=== PATIENT | female | born 1985 | race Caucasian/White ===

== ENCOUNTER → 2016-05-27 | Outpatient (CLI) | payer BC | LOC: RAD 16:19 | PROVIDERS: ATTEND Physician Assistant | DX: M47.896 Other spondylosis, lumbar region (principal); R32 Unspecified urinary incontinence | CPT/HCPCS: 72148 ==

== ENCOUNTER → 2016-09-20 | Outpatient (CLI) | payer BC | LOC: RAD 16:34 | PROVIDERS: ATTEND Physician Assistant | DX: M25.561 Pain in right knee (principal) ==

== ENCOUNTER 2017-11-02 05:24 | Emergency (ER) | payer BC ==
--- NOTE | 2017-11-02 06:03 | RADIOLOGY REPORT (SQ) ---
EXAM DESCRIPTION: XR WRIST 3 OR MORE VIEWS COMPLETED DATE/TME: 11/02/2017 05:34 CLINICAL HISTORY: 32 years, Female, injury/pain COMPARISON: None. None. FINDINGS: 3 views of the left wrist. Acute fracture of the distal left radial metaphysis with approximately 40 degrees dorsal angulation. Minimally displaced ulnar styloid fracture. No other acute fracture identified. Normal osseous mineralization. Soft tissue edema. IMPRESSION: 1. Acute fracture of the distal left radial metaphysis with 40 degrees dorsal angulation. 2. Minimally displaced ulnar styloid fracture. 2011 [employer]- All Rights Reserved
--- NOTE | 2017-11-02 07:12 | ER Document Report ---
ED General - General Chief Complaint: Wrist Injury Stated Complaint: LEFT INJURY Time Seen by Provider: 11/02/17 07:12 Mode of Arrival: Ambulatory Information source: Patient TRAVEL OUTSIDE OF THE [place] IN LAST 30 DAYS: No - HPI Notes: 32-year-old female presents to the ED with complaints of left wrist pain after she fell approximately 2 hours ago while at home. Denies any other area of injury. Denies hitting head or change in level consciousness. Pain is 6 out of 10, sharp and shooting. Pt took pain medication at home. Denies any numbness or tingling to bilateral upper extremities. Has not tried moving extremities. Denies . Denies fevers, chills, chest pain,palpitations, shortness of breath, dyspnea, nausea, vomiting, diarrhea, abdominal pain, hematuria, blurred vision, double vision, loss of vision, speech changes, LH, dizziness, syncope, headaches, wheezing, ST, URI, neck pain, weakness, bowel or bladder dysfunction, saddle anesthesia, numbness or tingling in bilateral upper or lower extremities equally, muscle paralysis, weakness in bilateral upper or lower extremities equally or rash. Denies IV drug use. - Related Data Allergies/Adverse Reactions: No Known Allergies Allergy (Verified 11/02/17 05:33) Past Medical History - General Information source: Patient - Social History Smoking Status: Current Every Day Smoker Frequency of alcohol use: None Drug Abuse: None Family History: Reviewed & Not Pertinent Patient has suicidal ideation: No Patient has homicidal ideation: No Pulmonary Medical History: Reports: Hx Asthma Endocrine Medical History: Reports: Hx Diabetes Mellitus Type 2 Renal/ Medical History: Denies: Hx Peritoneal Dialysis GI Medical History: Reports: Hx Cirrhosis, Hx Gastroesophageal Reflux Disease Past Surgical History: Reports: Hx Cholecystectomy - Immunizations Hx Diphtheria, Pertussis, Tetanus Vaccination: No Review of Systems - Review of Systems Constitutional: No symptoms reported EENT: No symptoms reported Cardiovascular: No symptoms reported Respiratory: No symptoms reported Gastrointestinal: No symptoms reported Genitourinary: No symptoms reported Female Genitourinary: No symptoms reported Musculoskeletal: See HPI Skin: No symptoms reported Hematologic/Lymphatic: No symptoms reported Neurological/Psychological: No symptoms reported Physical Exam - Vital signs Vitals: Temp Pulse Resp BP Pulse Ox 98.1 F 99 16 123/70 100 11/02/17 05:33 11/02/17 05:33 11/02/17 05:33 11/02/17 05:33 11/02/17 05:33 - Notes Notes: PHYSICAL EXAMINATION: GENERAL: Well-appearing, well-nourished and in no acute distress. HEAD: Atraumatic, normocephalic. EYES: Pupils equal round and reactive to light, extraocular movements intact, conjunctiva are normal. ENT: Nares patent, oropharynx clear without exudates. Moist mucous membranes. NECK: Normal range of motion, supple without lymphadenopathy LUNGS: Breath sounds clear to auscultation bilaterally and equal. No wheezes rales or rhonchi. HEART: Regular rate and rhythm without murmurs ABDOMEN: Soft, nontender, nondistended abdomen. No guarding, no rebound. No masses appreciated. Female : deferred Musculoskeletal: Normal range of motion, no pitting or edema. No cyanosis. noted left wrist pain with obvious deformity with flexion, extension, inversion , eversion of wrist. digits in right and left with full aprom. Patient unwilling to loss prevention officer with left wrist but did squeeze my fingers which is equal to the right, 5 out of 5. Snuffbox tenderness positive on left. radial pulses + 2 BUE equally. Negative kanavels sign. No open wounds or drainage from wrist. No vascular compromise. No body crepitus or focal area of TTP. Limited ROM with flexion, extension, ulnar/radial deviation on left . Motor and sensory function of ulnar, radial, medial nerves intact bilaterally and equally. NEUROLOGICAL: Cranial nerves grossly intact. Normal speech, normal gait. Normal sensory, motor exams PSYCH: Normal mood, normal affect. SKIN: Warm, Dry, normal turgor, no rashes or lesions noted. Course - Re-evaluation Re-evalutation: 11/02/17 08:13 32-year-old female presents to the ED for evaluation of left wrist pain status post fall. X-ray of left wrist show she has a acute fracture of the distal left radial meta-epiphysis with 40 of angulation, minimally displaced ulnar styloid fracture. With Dr. Lam Magaña, hand specialist on-call at 0750, regarding radiological findings, stated that he will see patient in office this morning to reduce her fracture. Discussed plan of care with patient, she agreed to have reduction performed at employee development specialist office, patient's 12 herself to the ED, spoke with forest examiner at Dr. Magaña's office will be happy to see her right after she splinted in the ED. patient was agreeable to this after being splinted in the ED. consent by patient given to place left sugar tong splint,. cms intact, sensory motor function intact in bilateral upper extremities prior to splint application fiberglass splint placed without incident. cms intact 20 minutes after splint application. Splint is in good alignment, sling applied. Bilateral upper extremities with motor and sensory function intact 20 minutes after application. Pt stated that splint felt comfortable. pt is being seen by pain management and is already been prescribed oral controlled opioid medications, discussed with the patient that I will be unable to prescribe medication for her, she stated she was aware due to her pain contract. all questions and concerns answered by this provider. After performing a Medical Screening Examination, I estimate there is LOW risk for OPEN FRACTURE, COMPARTMENT SYNDROME, TENDON RUPTURE, ACUTE NEUROVASCULAR INJURY, or RETAINED FOREIGN BODY, thus I consider the discharge disposition reasonable. Also, there is no evidence or peritonitis, sepsis, or toxicity. I have reevaluated this patient multiple times and no significant life threatening changes are noted. The patient and I have discussed the diagnosis and risks, and we agree with discharging home with close follow-up with the understanding that symptoms and presentations can change. We also discussed returning to the Emergency Department immediately if new or worsening symptoms occur. We have discussed the symptoms which are most concerning (e.g., changing or worsening pain, fever, numbness, weakness, cool or painful digits) that necessitate immediate return. - Vital Signs Vital signs: Temp Pulse Resp BP Pulse Ox 97.7 F 72 20 113/74 96 11/02/17 08:44 11/02/17 08:44 11/02/17 08:44 11/02/17 08:44 11/02/17 08:44 Discharge - Discharge Clinical Impression: Fracture of distal end of radius with dorsal angulation Left wrist fracture Qualifiers: Encounter type: initial encounter Fracture type: closed Qualified Code(s): S62.102A - Fracture of unspecified carpal bone, left wrist, initial encounter for closed fracture Ulna styloid fracture, closed Qualifiers: Encounter type: initial encounter Fracture alignment: displaced Laterality: left Qualified Code(s): S52.612A - Displaced fracture of left ulna styloid process, initial encounter for closed fracture Condition: Stable Disposition: HOME, SELF-CARE Instructions: Compartment Syndrome Cautions ([facility]), Fractured Radius and Ulna ( [facility]), Splint Pending Casting ([facility]), Splint Precautions ([facility]), Temporary Splint ( [facility]) Additional Instructions: Continue taking your pain medication as is been prescribed to you by pain management. Please go over to Dr. Lam Magaña's office now for reduction and cast placement , they will see in the office right after you leave the ER today Orthopedic Office [facility] [address] [place] [address] phone: [phone] Forms: Return to Work Referrals: LAM MAGAÑA DO [ACTIVE STAFF] - 11/02/17 8:07 am ROSHAN DENNIS MD [COMMUNITY BASED STAFF] - Follow up as needed
[2017-11-02] MEDS ORDERED: FENTANYL CITRATE INJ/PF 100 MCG/2 ML AMPUL IV ONE (07:46)
[2017-11-02 08:44] VITALS: BP 113/74
== END 2017-11-02 08:44 | disposition home or self-care (01) ==
LOC: ER 05:24
DX: S52.612A Displaced fracture of left ulna styloid process, initial encounter for closed fracture (principal); S52.502A Unspecified fracture of the lower end of left radius, initial encounter for closed fracture; W19.XXXA Unspecified fall, initial encounter; Y92.009 Unspecified place in unspecified non-institutional (private) residence as the place of occurrence of the external cause; E11.9 Type 2 diabetes mellitus without complications; J45.909 Unspecified asthma, uncomplicated; F17.200 Nicotine dependence, unspecified, uncomplicated; Z79.891 Long term (current) use of opiate analgesic
CPT/HCPCS: 99283

== ENCOUNTER 2017-11-08 12:24 | Emergency (ER) | payer BC ==
--- NOTE | 2017-11-08 13:21 | ER Document Report ---
ED Medical Screen (RME) - General Chief Complaint: Arm Pain Stated Complaint: LEFT ARM PAIN Time Seen by Provider: 11/08/17 13:14 Mode of Arrival: Ambulatory Information source: Patient Notes: 32-year-old female presents with Colles' fracture left that was splinted with complaints of bruising of her hand swelling worsened today I have greeted and performed a rapid initial assessment of this patient. A comprehensive ED assessment and evaluation of the patient, analysis of test results and completion of the medical decision making process will be conducted by additional ED providers. PHYSICAL EXAMINATION: GENERAL: Well-appearing, well-nourished and in no acute distress. HEAD: Atraumatic, normocephalic. EYES: Pupils equal round extraocular movements intact, conjunctiva are normal. ENT: Nares patent NECK: Normal range of motion LUNGS: No respiratory distress Musculoskeletal: decreased rom of the left wrist NEUROLOGICAL: Normal speech, normal gait. PSYCH: Normal mood, normal affect. SKIN: echymosis of the left wrist hand TRAVEL OUTSIDE OF THE [place] IN LAST 30 DAYS: No - Related Data Allergies/Adverse Reactions: No Known Allergies Allergy (Verified 11/04/17 10:49) Past Medical History - Social History Chew tobacco use (# tins/day): No Frequency of alcohol use: Occasional Drug Abuse: None - Past Medical History Cardiac Medical History: Reports: Hx Heart Attack - "Mild [place]" cause unknown Denies: Hx Coronary Artery Disease, Hx Hypertension Pulmonary Medical History: Reports: Hx Asthma - Sees Dr. Tabares , Hx Bronchitis , Hx Pneumonia Neurological Medical History: Reports: Hx Seizures - "I have small seizures", no medications at this time . Denies: Hx Cerebrovascular Accident Endocrine Medical History: Reports: Hx Diabetes Mellitus Type 2 Renal/ Medical History: Denies: Hx Peritoneal Dialysis GI Medical History: Reports: Hx Cirrhosis, Hx Gastroesophageal Reflux Disease Musculoskeltal Medical History: Denies Hx Arthritis Past Surgical History: Reports: Hx Cholecystectomy - Immunizations Hx Diphtheria, Pertussis, Tetanus Vaccination: No History of Influenza Vaccine for 02/2017 - 07/2017 Season: Yes Influenza Administration Date for 02/2017 - 07/2017 Season: 01/16/18 Physical Exam - Vital signs Vitals: Temp Pulse Resp BP Pulse Ox 99.0 F 83 16 113/70 100 11/08/17 12:30 11/08/17 12:30 11/08/17 12:30 11/08/17 12:30 11/08/17 12:30 Course - Vital Signs Vital signs: Temp Pulse Resp BP Pulse Ox 99.0 F 83 16 113/70 100 11/08/17 12:30 11/08/17 12:30 11/08/17 12:30 11/08/17 12:30 11/08/17 12:30
--- NOTE | 2017-11-08 14:21 | ER Document Report ---
ED Extremity Problem, Upper - General Chief Complaint: Arm Pain Stated Complaint: LEFT ARM PAIN Time Seen by Provider: 11/08/17 13:14 Mode of Arrival: Ambulatory Notes: The patient is a 32-year-old female, past medical history left Colles' fracture 6 days ago, presents with bruising and swelling of her left hand that worsened today. She is scheduled for surgery in [address] Magaña. The patient's wrist fracture was unable to be reduced in the Ortho office last week. She is continuing to wear her sugar tong splint and taking oxycodone for pain control. She denies increased numbness, tingling, difficulty moving her fingers or any other injuries. TRAVEL OUTSIDE OF THE [place] IN LAST 30 DAYS: No - Related Data Allergies/Adverse Reactions: No Known Allergies Allergy (Verified 11/04/17 10:49) Past Medical History - General Information source: Patient - Social History Smoking Status: Current Every Day Smoker Chew tobacco use (# tins/day): No Frequency of alcohol use: Occasional Drug Abuse: None Family History: Reviewed & Not Pertinent Patient has suicidal ideation: No Patient has homicidal ideation: No - Past Medical History Cardiac Medical History: Reports: Hx Heart Attack - "Mild [place]" cause unknown Denies: Hx Coronary Artery Disease, Hx Hypertension Pulmonary Medical History: Reports: Hx Asthma - Sees Dr. Tabares , Hx Bronchitis , Hx Pneumonia Neurological Medical History: Reports: Hx Seizures - "I have small seizures", no medications at this time . Denies: Hx Cerebrovascular Accident Endocrine Medical History: Reports: Hx Diabetes Mellitus Type 2 Renal/ Medical History: Denies: Hx Peritoneal Dialysis GI Medical History: Reports: Hx Cirrhosis, Hx Gastroesophageal Reflux Disease Musculoskeltal Medical History: Denies Hx Arthritis Past Surgical History: Reports: Hx Cholecystectomy - Immunizations Hx Diphtheria, Pertussis, Tetanus Vaccination: No Review of Systems - Review of Systems Notes: REVIEW OF SYSTEMS: CONSTITUTIONAL: -fevers, -chills EENT: -eye pain, -difficulty swallowing, -nasal congestion CARDIOVASCULAR: -chest pain, -syncope. RESPIRATORY: -cough, -SOB GASTROINTESTINAL: -abdominal pain, -nausea, -vomiting, -diarrhea GENITOURINARY: -dysuria, -hematuria MUSCULOSKELETAL: +left wrist and hand pain, -back pain, -neck pain SKIN: -rash or skin lesions. HEMATOLOGIC: -easy bruising or bleeding. LYMPHATIC: -swollen, enlarged glands. NEUROLOGICAL: -altered mental status or loss of consciousness, -headache, - neurologic symptoms PSYCHIATRIC: -anxiety, -depression. ALL OTHER SYSTEMS REVIEWED AND NEGATIVE. Physical Exam - Vital signs Vitals: Temp Pulse Resp BP Pulse Ox 99.0 F 83 16 113/70 100 11/08/17 12:30 11/08/17 12:30 11/08/17 12:30 11/08/17 12:30 11/08/17 12:30 - Notes Notes: PHYSICAL EXAMINATION: GENERAL: Well-appearing, well-nourished and in no acute distress. HEAD: Atraumatic, normocephalic. EYES: Pupils equal round and reactive to light, extraocular movements intact, sclera anicteric, conjunctiva are normal. ENT: nares patent, oropharynx clear without exudates. Moist mucous membranes. NECK: Normal range of motion, supple without lymphadenopathy ABDOMEN: Soft, nontender, normoactive bowel sounds. No guarding, no rebound. No masses appreciated. EXTREMITIES: Ecchymosis and swelling over dorsal surface of left hand, tenderness over 3rd and 4th metacarpals, brisk capillary refill, tenderness and deformity of distal left wrist. Sensation intact of all left 5th fingers. NEUROLOGICAL: Cranial nerves grossly intact. Normal speech, normal gait. Normal sensory and motor exams. PSYCH: Normal mood, normal affect. Course - Re-evaluation Re-evalutation: Patient with no evidence of compartment syndrome or new acute fractures. She has orthopedic surgery in [address] Magaña to fix her Colles' fracture. Pt's splint was loosened. Instructed her to continue to wear the splint and given strict return precautions. - Vital Signs Vital signs: Temp Pulse Resp BP Pulse Ox 99.0 F 83 16 113/70 100 11/08/17 12:30 11/08/17 12:30 11/08/17 12:30 11/08/17 12:30 11/08/17 12:30 - Diagnostic Test Radiology reviewed: Image reviewed, Reports reviewed Radiology results interpreted by me: Left hand x-ray: No acute fractures Discharge - Discharge Clinical Impression: Traumatic ecchymosis of left hand Qualifiers: Encounter type: initial encounter Qualified Code(s): S60.222A - Contusion of left hand, initial encounter Condition: Stable Disposition: HOME, SELF-CARE Additional Instructions: There are no signs of new fractures on your x-ray today. Keep the loose splint in place and follow-up with Dr. Magaña as scheduled in 2 days for your surgery. Referrals: JUAN A BROWN MD [Primary Care Provider] - Follow up as needed KIM MAGAÑA DO [ACTIVE STAFF] - Follow up in 3-5 days
[2017-11-08] MEDS ORDERED: OXYCODONE HCL IR 5 MG TABLET PO ONE (15:07)
--- NOTE | 2017-11-08 15:43 | RADIOLOGY REPORT (SQ) ---
EXAM DESCRIPTION: HAND LEFT 3 VIEWS COMPLETED DATE/TIME: 11/08/2017 3:23 pm REASON FOR STUDY: left hand swelling and injury COMPARISON: Left wrist radiographs 11/02/2017. NUMBER OF VIEWS: Three views left hand. LIMITATIONS: See below. FINDINGS: Angulated distal radial fracture looks similar to prior. Limited evaluation of the digits due to flexion and positioning difficulties. No gross hand fracture or dislocation evident. OTHER: No other significant finding. IMPRESSION: 1. Grossly unchanged known distal radial fracture. 2. No hand fracture identified, mil dly limited positioning. TECHNICAL DOCUMENTATION: JOB ID: [id number] Reading location - IP/workstation name: [email or web address]
[2017-11-08 16:48] VITALS: BP 120/67
== END 2017-11-08 16:46 | disposition home or self-care (01) ==
LOC: ER 12:24
DX: S52.532D Colles' fracture of left radius, subsequent encounter for closed fracture with routine healing (principal); S60.222D Contusion of left hand, subsequent encounter; M79.602 Pain in left arm; M25.532 Pain in left wrist; M79.89 Other specified soft tissue disorders; X58.XXXD Exposure to other specified factors, subsequent encounter; F17.200 Nicotine dependence, unspecified, uncomplicated; I25.2 Old myocardial infarction; J45.909 Unspecified asthma, uncomplicated; E11.9 Type 2 diabetes mellitus without complications
CPT/HCPCS: 99283

== ENCOUNTER 2017-11-10 10:32 | Day surgery (SDC) | payer BC ==
--- NOTE | 2017-11-04 13:43 | RADIOLOGY REPORT (SQ) ---
EXAM DESCRIPTION: CHEST PA/LATERAL COMPLETED DATE/TIME: 11/04/2017 12:54 pm REASON FOR STUDY: PRE-OP COMPARISON: CT chest 08/05/2012 Chest film 04/01/2012, 08/07/2010 EXAM PARAMETERS: NUMBER OF VIEWS: two views TECHNIQUE: Digital Frontal and Lateral radiographic views of the chest acquired. RADIATION DOSE: NA LIMITATIONS: none FINDINGS: LUNGS AND PLEURA: No opacities, masses or pneumothorax. No pleural effusion. MEDIASTINUM AND HILAR STRUCTURES: No masses or contour abnormalities. HEART AND VASCULAR STRUCTURES: Heart normal size. No evidence for failure. BONES: No acute findings. HARDWARE: Clips right upper quadrant post cholecystectomy. OTHER: No other significant finding. IMPRESSION: NO SIGNIFICANT RADIOGRAPHIC FINDING IN THE CHEST. TECHNICAL DOCUMENTATION: JOB ID: [id number] [employer]- All Rights Reserved Reading location - IP/workstation name: [email or web address]
[2017-11-04 13:47] LABS: HEMATOCRIT 40.1 % (36.0-47.0); HEMOGLOBIN 13.7 g/dL (12.0-15.5); MEAN CORPUSCULAR HEMOGLOBIN 31.4 pg (27.0-33.4); MEAN CORPUSCULAR HGB CONC 34.1 g/dL (32.0-36.0); MEAN CORPUSCULAR VOLUME 92 fl (80-97); PLATELET COUNT 201 10^3/uL (150-450); RED BLOOD COUNT 4.36 10^6/uL (3.72-5.28); RED CELL DISTRIBUTION WIDTH 12.2 % (11.5-14.0); WHITE BLOOD COUNT 5.9 10^3/uL (4.0-10.5)
[2017-11-04 14:15] LABS: ANION GAP 11 (5-19); BLOOD UREA NITROGEN 14 mg/dL (7-20); CALCIUM 9.1 mg/dL (8.4-10.2); CARBON DIOXIDE 23 mmol/L (22-30); CHLORIDE 111 mmol/L (98-107); GLUCOSE 92 mg/dL (75-110); SODIUM 144.5 mmol/L (137-145)
--- NOTE | 2017-11-04 22:25 | EKG REPORT ---
SEVERITY:- NORMAL ECG - SINUS RHYTHM : Confirmed by: Sandeep Sorto 04-Nov-2017 22:25:16
[~2017-11-10 10:32] MED LIST: ACETAMINOPHEN 1,000 MG/100 ML RTUPB IV ONE; BUPIVACAINE HCL 0.5 % INJ/PF 30 ML SDV ONE; CEFAZOLIN 2 GM/D5W RTU 2 GM/50 ML RTUPB IV PRN; CEFAZOLIN SODIUM 2 GM in NORMAL SALINE 100 ML IV PRN; FENTANYL CITRATE INJ/PF 100 MCG/2 ML AMPUL ONE; LACTATED RINGERS 1000 ML IV PRN; LIDOCAINE 0.5% INJ-PF (5 MG/ML) 50 ML SDV SUBCUT PRN; LIDOCAINE 2% INJ-PF (20 MG/ML) 10 ML AMPUL ONE; MIDAZOLAM 2 MG/2 ML INJ ONE; PROPOFOL INJ 200 MG/20 ML VIAL IV ONE
[2017-11-10] MEDS ORDERED: OXYCODONE-ACETAMINOPHEN 5-325 MG TABLET PO PRN ×3 (11:57→13:33)
[2017-11-10] MEDS ORDERED: PROMETHAZINE HCL INJ 25 MG/1 ML VIAL IV PRN ×2 (11:57)
[2017-11-10] MEDS ORDERED: FENTANYL CITRATE INJ/PF 100 MCG/2 ML AMPUL IV PRN ×3 (11:57)
[2017-11-10] MEDS ORDERED: ONDANSETRON HCL INJ/PF 4 MG/2 ML SDV IV PRN ×2 (11:57→13:33)
[2017-11-10] MEDS ORDERED: DIPHENHYDRAMINE HCL 50 MG/ML VIAL IV PRN (11:57)
[2017-11-10] MEDS ORDERED: MEPERIDINE HCL/PF INJ 25 MG/1 ML DISP.SYRIN IV PRN (11:57)
[2017-11-10] MEDS ORDERED: MORPHINE SULFATE 10 MG/ML INJ IV PRN (11:57)
[2017-11-10] MEDS: FENTANYL CITRATE INJ/PF 100 MCG/2 ML AMPUL ONE ×2 (13:30→13:35)
[2017-11-10] MEDS ORDERED: HYDROMORPHONE HCL INJ/PF 2 MG/ML AMPULE IV PRN (13:33)
--- NOTE | 2017-11-10 13:34 | Discharge Summary ---
Discharge Summary (SDC) - Discharge Final Diagnosis: Left distal radius fracture Date of Surgery: 11/10/17 Discharge Date: 11/10/17 Condition: Good Treatment or Instructions: Schedule Follow Up w/ Dr. Lam Whitt @ [facility] for Surgery to be seen in 10-14 days or as scheduled [place]: [place]: [place]: Ice and elevate Keep splint clean/dry/intact. If your fingers become numb please unwrap the [place] wrap but leave the splint in place, if the sensation does not return within 30 minutes please return to the emergency department. May begin finger range of motion attempting to make full fist. Please use ibuprofen (Motrin or Advil) 600-800 mg every 8 hours as needed for pain or fever DO NOT TAKE w/ TORADOL may use once TORADOL complete. You may also use acetaminophen (Tylenol) 1000 mg every 4-6 hours as needed for pain or fever. Please be aware that many medications contain acetaminophen, do not exceed a total of 1000 mg of acetaminophen every 6 hours. If ibuprofen and acetaminophen are not sufficient for your pain you may take the Percocet/[place]. Please be aware that the Percocet/[place] does contain Tylenol. Stool softener of choice when on pain medication. Vitamin C 500 mg 1 daily for 51 days for treatment of nerve symptoms Prescriptions: Ketorolac Tromethamine [Toradol 10 mg Tablet] 10 mg PO Q8HP PRN #10 tablet PRN Reason: Oxycodone HCl 5 mg PO Q6 PRN #30 tablet PRN Reason: Referrals: JUAN A BROWN MD [Primary Care Provider] - Discharge Diet: As Tolerated Respiratory Treatments at Home: Deep Breathing/Coughing Discharge Activity: No Lifting Over 10 Pounds, No Lifting/Push/Pulling Report the Following to Your Physician Immediately: Fever over 101 Degrees, Unusual Bleeding, Redness, Swelling, Warmth, Increased Soreness
--- NOTE | 2017-11-10 13:35 | Operative Report ---
Operative Report DATE OF SURGERY: 11/10/17 PREOPERATIVE DIAGNOSIS: Left extra-articular distal radius fracture POSTOPERATIVE DIAGNOSIS: Same OPERATION: ORIF left extra-articular distal radius fracture SURGEON: KIM MAGAÑA ANESTHESIA: GA COMPLICATIONS: None ESTIMATED BLOOD LOSS: Minimal PROCEDURE: Indication for above procedure: 32-year-old female who sustained a fall onto her outstretched left wrist. Patient was seen at the emergency room confirming extra-articular distal radius fracture and patient was placed in a splint. She followed up at our office at which point we discussed treatment options including operative versus nonoperative intervention given the dorsal displacement, comminution and angulation decision was made to proceed with operative intervention which included closed versus open reduction internal fixation. Risks and benefits of both closed treatment open treatment were explained to the patient she verbalized understanding consented for the procedure. Procedure In Detail: Patient was seen and evaluated in the preoperative holding area. The LEFT upper extremity was initialized and marked. Patient received 2g of Ancef IV for bacterial prophylaxis. Patient was taken back to the operative room where transferred to the operative table and placed under general anesthesia. Once they were adequately anesthetized and a nonsterile tourniquet was placed on his upper extremity. A surgical team debriefing was performed ensuring all instrumentation was available, the surgical procedure was discussed with possible concerns reviewed. A timeout was done identifying correct patient, procedure and extremity everyone in attendance agree with this and verbalized no concerns. Closed reduction was attempted without advent of alignment with persistent dorsal displacement at that point decision was made to proceed with operative treatment. The upper extremity was prepped with chlorhexidine and alcohol and draped in a sterile fashion. The extremity was exsanguinated the tourniquet was inflated to 250 mmHg. A longitudinal skin incision was made via a volar approach of Murray along the FCR tendon sheath. The FCR tendon sheath was opened and the FCR retracted ulnarly, the palmar cutaneous branch of the median nerve was identified and protected throughout the entirety of the case. The radial artery was identified and retracted radially. Blunt dissection was performed to the FPL which was carefully sweeped ulnarly. This brought me to the pronator quadratus which was elevated off of the distal radius via sharp dissection with a 15 blade to allow later repair. The fracture was then identified and a reduction maneuver was performed utilizing a [place] elevator. Acceptable reduction was then obtained and a Acumed 3 hole volar distal radius plate was placed into position and fixated with a K wire distally x2. AP and lateral radiographs were then obtained demonstrating appropriate placement of the plate and acceptable reduction of the fracture. Using a reduction tenaculum I was able to bring the plate down to bone distally. After drilling distally a cortical screw was used bringing the plate further down to bone, avoiding any liftoff of the plate from the volar cortex that could cause flexor tendon irritation post- operativley. Drilling the near cortex and to but not thru the far cortex a locking screw was then placed in the remaining holes. The previous cortex screw was removed and replaced with a locking screw. Two additional screws were placed into the styloid giving further stability to the radial styloid piece. AP and lateral radius were then done confirming appropriate placement of plate with no evidence of penetration intra-articular or within the DRUJ. I then turned my attention to the proximal screws. I drilled bicortically bringing the plate down to bone with a cortex screw. The remaining 2 holes proximally were drilled bicortically placing the appropriate size cortex in the proximal most hole and a locking screw in the distal shaft hole. AP and lateral radiographs were done confirming appropriate placement of the plate and reduction of the fracture there was advent of radial height, radial inclination and volar tilt. No evidence of dorsal screw prominence or intra- articular penetration of the DRUJ or radiocarpal joint. The wound was copiously irrigated with normal saline. There was no evidence of DRUJ instability on examination, Negative Hamlin's test, No crepitus with range of motion at the radiocarpal joint or DRUJ. I then closed the pronator quadratus with interrupted 3-0 Monocryl suture. Subcutaneous tissues were closed with interrupted 4-0 Monocryl suture. The skin was closed with a running subcuticular 4-0 Monocryl suture which was reinforced with Dermabond and Steri-Strips. 20 mL of 0.5% Marcaine were injected for postoperative pain control. The tourniquet was then deflated. Was dressed with sterile 4 x 4's and patient was placed in a well-padded volar splint with bias wrap. Sponge counts, instrument counts and needle counts were correct. There was no intraoperative complications patient tolerated procedure well stable to PACU. Postoperative plan: Patient will be switched to a removal brace at her first postoperative followup visit and begin range of motion. Patient is encouraged to start vitamin C 500 mg daily for 51 days. Will obtain radiographs at followup of the wrist.
--- NOTE | 2017-11-10 16:00 | RADIOLOGY REPORT (SQ) ---
EXAM DESCRIPTION: WRIST LEFT 2 VIEWS; NO CHG FLUORO COMPLETED DATE/TIME: 11/10/2017 3:46 pm REASON FOR STUDY: ORIF LEFT WRIST S52.532A COLLES' FRACTURE OF LEFT RADIUS, INIT FOR CLOS FX COMPARISON: Left wrist three views 11/02/2017 FLUOROSCOPY TIME: 1 minutes 5 seconds 7 images saved to PACS. TECHNIQUE: Intra-operative images acquired during surgical procedure to evaluate progress. NUMBER OF IMAGES: 7 LIMITATIONS: None. FINDINGS: 7 C-arm images are submitted post ORIF left distal radius fracture with a palmar fixation plate and multiple anchoring screws. Ulnar styloid avulsion. Fractures are in good alignment. Plea se see operative report for further details IMPRESSION: Intra procedural imaging and fluoro as above COMMENT: Quality ID [id number]: Final reports for procedures using fluoroscopy that document radiation exp osure indices, or exposure time and number of fluorographic images (if radiation exposure indices are not available) Please consult full operative report of the attending physician for description of the procedure. TECHNICAL DOCUMENTATION: JOB ID: [id number] [employer]- All Rights Reserved Reading location - IP/workstation name: [email or web address]
--- NOTE | 2017-11-10 16:00 | RADIOLOGY REPORT (SQ) ---
EXAM DESCRIPTION: WRIST LEFT 2 VIEWS; NO CHG FLUORO COMPLETED DATE/TIME: 11/10/2017 3:46 pm REASON FOR STUDY: ORIF LEFT WRIST S52.532A COLLES' FRACTURE OF LEFT RADIUS, INIT FOR CLOS FX COMPARISON: Left wrist three views 11/02/2017 FLUOROSCOPY TIME: 1 minutes 5 seconds 7 images saved to PACS. TECHNIQUE: Intra-operative images acquired during surgical procedure to evaluate progress. NUMBER OF IMAGES: 7 LIMITATIONS: None. FINDINGS: 7 C-arm images are submitted post ORIF left distal radius fracture with a palmar fixation plate and multiple anchoring screws. Ulnar styloid avulsion. Fractures are in good alignment. Plea se see operative report for further details IMPRESSION: Intra procedural imaging and fluoro as above COMMENT: Quality ID [id number]: Final reports for procedures using fluoroscopy that document radiation exp osure indices, or exposure time and number of fluorographic images (if radiation exposure indices are not available) Please consult full operative report of the attending physician for description of the procedure. TECHNICAL DOCUMENTATION: JOB ID: [id number] [employer]- All Rights Reserved Reading location - IP/workstation name: [email or web address]
[2017-11-10 17:36] VITALS: BP 124/78
[2017-11-10] MEDS ORDERED: KETOROLAC TROMETHAMINE 60 MG/2 ML SDV ONE (19:40)
[2017-11-10] MEDS ORDERED: ONDANSETRON HCL INJ/PF 4 MG/2 ML SDV ONE (19:40)
[2017-11-10] MEDS ORDERED: DEXAMETHASONE SOD PHOSPHATE INJ 4 MG/1 ML VIAL ONE (19:40)
== END 2017-11-10 17:00 | disposition home or self-care (01) ==
LOC: OROUT 10:32
PROVIDERS: ATTEND Orthopaedic Surgery
DX: S52.552A Other extraarticular fracture of lower end of left radius, initial encounter for closed fracture (principal); W19.XXXA Unspecified fall, initial encounter; K74.60 Unspecified cirrhosis of liver; J45.909 Unspecified asthma, uncomplicated; E11.9 Type 2 diabetes mellitus without complications; F17.210 Nicotine dependence, cigarettes, uncomplicated; M25.532 Pain in left wrist; Z79.51 Long term (current) use of inhaled steroids; Z79.899 Other long term (current) drug therapy; Z01.818 Encounter for other preprocedural examination; G47.419 Narcolepsy without cataplexy; G40.909 Epilepsy, unspecified, not intractable, without status epilepticus; G43.909 Migraine, unspecified, not intractable, without status migrainosus; Z85.828 Personal history of other malignant neoplasm of skin
CPT/HCPCS: 93005; 36415; 82962; 85027; 81025; 80048; 71046; 73100; 93010; C1713 ×2; J2250; J3490 ×2; J1100; J1885; J3010; J1170; J2405; J2704; J0690; J0131; 01830

== ENCOUNTER → 2018-07-14 | Outpatient (CLI) | payer BC ==
[2018-07-14 17:14] LABS: ABSOLUTE BASOPHILS # (AUTO) 0.1 10^3/uL (0.0-0.2); ABSOLUTE EOSINOPHILS # (AUTO) 0.1 10^3/uL (0.0-0.6); ABSOLUTE MONOCYTES (AUTO) 0.5 10^3/uL (0.1-1.4); ABSOLUTE NEUT (AUTO) 4.1 10^3/uL (1.7-8.2); BASOPHILS % (AUTO) 0.7 % (0-2); EOSINOPHILS % (AUTO) 1.7 % (0-6); HEMATOCRIT 40.6 % (36.0-47.0); HEMOGLOBIN 13.9 g/dL (12.0-15.5); LYMPHOCYTES % (AUTO) 38.9 % (13-45); MEAN CORPUSCULAR HEMOGLOBIN 30.8 pg (27.0-33.4); MEAN CORPUSCULAR HGB CONC 34.3 g/dL (32.0-36.0); MEAN CORPUSCULAR VOLUME 90 fl (80-97); PLATELET COUNT 251 10^3/uL (150-450); RED BLOOD COUNT 4.54 10^6/uL (3.72-5.28); SEGMENTED NEUTROPHILS % (AUTO) 52.7 % (42-78); TOTAL CELLS COUNTED % (AUTO) 100 %; WHITE BLOOD COUNT 7.7 10^3/uL (4.0-10.5)
[2018-07-14 18:06] LABS: ERYTHROCYTE SEDIMENTATION RATE 23 mm/hr (0-20)
== END ==
LOC: OD 15:28
PROVIDERS: ATTEND Pain Medicine Interventional Pain Medicine
DX: R50.9 Fever, unspecified (principal)
CPT/HCPCS: 36415; 85025; 85652; 86140

== ENCOUNTER 2018-10-08 11:56 | Emergency (ER) | payer BC ==
--- NOTE | 2018-10-08 13:36 | ER Document Report ---
ED Medical Screen (RME) - General Chief Complaint: Leg Swelling Stated Complaint: LEG SWELLING Time Seen by Provider: 10/08/18 13:29 Primary Care Provider: TATUM LOYA MD [Primary Care Provider] - Follow up as needed TRAVEL OUTSIDE OF THE [place] IN LAST 30 DAYS: No - HPI Notes: 10/08/18 13:33 Patient is a 33-year-old female with history of type 2 diabetes and asthma who presents complaining of right leg pain from her knee to her foot with associated increase in swelling that began this morning. Patient states that she does have some swelling in her legs bilaterally, but this is more than usual. She is also been having subjective fevers with nasal congestion/discharge and a dry cough over the past several days. Patient states that she does have some shortness of breath, but is considered mild. Denies drug allergies. + smoker. Denies any prolonged immobilization, distance travel, recent surgery/trauma, personal cancer history, hormone use, or previous DVT/PE. Denies RAMOS, neck pain, CP, syncope, palpitations, TURNER, Abd pain, or rash. I have treated and performed a rapid initial assessment of this patient. A comprehensive ED assessment and evaluation of the patient, analysis of test results and completion of medical decision making process will be conducted by additional ED providers. PHYSICAL EXAMINATION: GENERAL: Well-appearing, well-nourished and in no acute distress. LUNGS: Breath sounds clear to auscultation bilaterally and equal. No wheezes rales or rhonchi. HEART: Regular rate and rhythm without murmurs, rubs, gallops. Extremities: 1+ pitting edema RLE and trace LLE. Peripheral pulses 2+. Capillary refill less than 3 seconds. + mild armaan to rt calf. NEUROLOGICAL: Normal speech, normal gait. PSYCH: Normal mood, normal affect. SKIN: Warm, Dry, normal turgor, no rashes or lesions noted. - Related Data Allergies/Adverse Reactions: No Known Allergies Allergy (Verified 11/04/17 10:49) Past Medical History - Past Medical History Cardiac Medical History: Reports: Hx Heart Attack - "Mild MS" cause unknown Denies: Hx Coronary Artery Disease, Hx Hypertension Pulmonary Medical History: Reports: Hx Asthma - Sees Dr. Tabares , Hx Bronchitis, Hx Pneumonia Neurological Medical History: Reports: Hx Seizures - "I have small seizures", no medications at this time . Denies: Hx Cerebrovascular Accident Endocrine Medical History: Reports: Hx Diabetes Mellitus Type 2 Renal/ Medical History: Denies: Hx Peritoneal Dialysis GI Medical History: Reports: Hx Cirrhosis, Hx Gastroesophageal Reflux Disease Musculoskeltal Medical History: Denies Hx Arthritis Past Surgical History: Reports: Hx Cholecystectomy - Immunizations Hx Diphtheria, Pertussis, Tetanus Vaccination: No History of Influenza Vaccine for 02/2017 - 07/2017 Season: Yes Influenza Administration Date for 02/2017 - 07/2017 Season: 01/16/18 Physical Exam - Vital signs Vitals: Temp Pulse Resp BP Pulse Ox 98.5 F 96 18 140/96 H 100 10/08/18 12:20 10/08/18 12:20 10/08/18 12:20 10/08/18 12:20 10/08/18 12:20 Course - Vital Signs Vital signs: Temp Pulse Resp BP Pulse Ox 98.5 F 96 18 140/96 H 100 10/08/18 12:20 10/08/18 12:20 10/08/18 12:20 10/08/18 12:20 10/08/18 12:20 Doctor's Discharge - Discharge Referrals: TATUM LOYA MD [Primary Care Provider] - Follow up as needed
[2018-10-08 14:07] LABS: ABSOLUTE BASOPHILS # (AUTO) 0.1 10^3/uL (0.0-0.2); ABSOLUTE EOSINOPHILS # (AUTO) 0.1 10^3/uL (0.0-0.6); ABSOLUTE LYMPHOCYTES (AUTO) 2.4 10^3/uL (0.5-4.7); ABSOLUTE MONOCYTES (AUTO) 0.5 10^3/uL (0.1-1.4); BASOPHILS % (AUTO) 0.9 % (0-2); EOSINOPHILS % (AUTO) 1.2 % (0-6); HEMATOCRIT 43.7 % (36.0-47.0); HEMOGLOBIN 14.8 g/dL (12.0-15.5); LYMPHOCYTES % (AUTO) 26.3 % (13-45); MEAN CORPUSCULAR HEMOGLOBIN 29.9 pg (27.0-33.4); MEAN CORPUSCULAR HGB CONC 33.9 g/dL (32.0-36.0); MEAN CORPUSCULAR VOLUME 88 fl (80-97); MONOCYTES % (AUTO) 5.8 % (3-13); PLATELET COUNT 271 10^3/uL (150-450); RED BLOOD COUNT 4.96 10^6/uL (3.72-5.28); RED CELL DISTRIBUTION WIDTH 12.3 % (11.5-14.0); SEGMENTED NEUTROPHILS % (AUTO) 65.8 % (42-78); TOTAL CELLS COUNTED % (AUTO) 100 %; WHITE BLOOD COUNT 9.1 10^3/uL (4.0-10.5)
[2018-10-08 14:15] LABS: INTERNATIONAL RATION (INR) 0.92; PROTHROMBIN TIME 12.8 SEC (11.4-15.4)
--- NOTE | 2018-10-08 14:18 | RADIOLOGY REPORT (SQ) ---
EXAM DESCRIPTION: CHEST 2 VIEWS COMPLETED DATE/TIME: 10/08/2018 2:10 pm REASON FOR STUDY: cough, sob COMPARISON: 04/01/2012 EXAM PARAMETERS: NUMBER OF VIEWS: two views TECHNIQUE: Digital Frontal and Lateral radiographic views of the chest acquired. RADIATION DOSE: NA LIMITATIONS: none FINDINGS: LUNGS AND PLEURA: No opacities, masses or pneumothorax. No pleural effusion. MEDIASTINUM AND HILAR STRUCTURES: No masses or contour abnormalities. HEART AND VASCULAR STRUCTURES: Heart normal size. No evidence for failure. BONES: No acute findings. HARDWARE: None in the chest. OTHER: No other significant finding. IMPRESSION: No acute abnormality of the lungs. No focal airspace opacity. TECHNICAL DOCUMENTATION: JOB ID: [id number] [employer]- All Rights Reserved Reading location - IP/workstation name: [email or web address]
[2018-10-08 14:24] LABS: PARTIAL THROMBOPLASTIN TIME 26.9 SEC (23.5-35.8)
[2018-10-08 14:25] LABS: ALANINE AMINOTRANSFERASE 33 U/L (9-52); ALBUMIN 4.6 g/dL (3.5-5.0); ALKALINE PHOSPHATASE 48 U/L (38-126); ANION GAP 11 (5-19); ASPARTATE AMINO TRANSFERASE 29 U/L (14-36); BILIRUBIN,DIRECT 0.3 mg/dL (0.0-0.4); BILIRUBIN,TOTAL 0.5 mg/dL (0.2-1.3); BLOOD UREA NITROGEN 11 mg/dL (7-20); CALCIUM 10.2 mg/dL (8.4-10.2); CARBON DIOXIDE 27 mmol/L (22-30); CHLORIDE 103 mmol/L (98-107); GLUCOSE 98 mg/dL (75-110); SODIUM 140.6 mmol/L (137-145); TOTAL PROTEIN 7.9 g/dL (6.3-8.2)
--- NOTE | 2018-10-08 17:26 | RADIOLOGY REPORT (SQ) ---
EXAM DESCRIPTION: VENOUS UNILATERAL LOWER COMPLETED DATE/TIME: 10/08/2018 5:15 pm REASON FOR STUDY: RLE swelling/pain COMPARISON: None. TECHNIQUE: Dynamic and static alvarez scale and color images acquired of the right leg venous system. S elected spectral images acquired with additional compression and augmentation maneuvers. The contrala teral common femoral vein and saphenofemoral junction were also imaged. Images stored on PACS. LIMITATIONS: None. FINDINGS: COMMON FEMORAL: Normal phasicity, compression and augmentation. No visualized echogenic ma terial on alvarez scale. No defects on color images. FEMORAL: Normal compression and augmentation. No visualized echogenic material on alvarez scale. No defe cts on color images. POPLITEAL: Normal compression, augmentation. No visualized echogenic material on alvarez scale. No defec ts on color images. CALF VESSELS: Normal compression, augmentation. No visualized echogenic material on alvarez scale. No de fects on color images. GSV and SSV: Normal compression, augmentation. No visualized echogenic material on alvarez scale. No def ects on color images. ANY DEEP VENOUS INSUFFICIENCY: Not evaluated. ANY EVIDENCE OF POPLITEAL CYST: No. OTHER: No other significant finding. CONTRALATERAL COMMON FEMORAL VEIN AND SAPHENOFEMORAL JUNCTION: Normal phasicity, compression and augmentation. No visualized echogenic material on alvarez scale. No de fects on color images. IMPRESSION: NO EVIDENCE DVT OR SVT IN THE RIGHT LEG. TECHNICAL DOCUMENTATION: JOB ID: [id number] [employer]- All Rights Reserved Reading location - IP/workstation name: [email or web address]
--- NOTE | 2018-10-08 19:02 | ER Document Report ---
ED Extremity Problem, Lower - General Chief Complaint: Leg Swelling Stated Complaint: LEG SWELLING Time Seen by Provider: 10/08/18 13:29 Primary Care Provider: TATUM LOYA MD [ACTIVE STAFF] - Follow up as needed Mode of Arrival: Ambulatory Information source: Patient Notes: Patient is an otherwise healthy 33-year-old female presented to the emergency department chief complaint of right leg pain from her foot into her knee. She states her symptoms started this morning. She also reports associated swelling. She does state that she occasionally has bilateral leg swelling, states this is worse than before. She also reports mild shortness of breath, denies any chest pain. She does smoke but denies any prolonged immobilization, distant travel, recent surgery or trauma, personal cancer history, hormone use or previous DVT. TRAVEL OUTSIDE OF THE [place] IN LAST 30 DAYS: No - Related Data Allergies/Adverse Reactions: No Known Allergies Allergy (Verified 11/04/17 10:49) Past Medical History - General Information source: Patient - Social History Smoking Status: Current Every Day Smoker Frequency of alcohol use: None Drug Abuse: None Family History: Reviewed & Not Pertinent Patient has suicidal ideation: No Patient has homicidal ideation: No - Past Medical History Cardiac Medical History: Reports: Hx Heart Attack - "Mild [place]" cause unknown Denies: Hx Coronary Artery Disease, Hx Hypertension Pulmonary Medical History: Reports: Hx Asthma - Sees Dr. Tabares , Hx Bronchitis, Hx Pneumonia Neurological Medical History: Reports: Hx Seizures - "I have small seizures", no medications at this time . Denies: Hx Cerebrovascular Accident Endocrine Medical History: Reports: Hx Diabetes Mellitus Type 2 Renal/ Medical History: Denies: Hx Peritoneal Dialysis GI Medical History: Reports: Hx Cirrhosis, Hx Gastroesophageal Reflux Disease Musculoskeletal Medical History: Denies Hx Arthritis Past Surgical History: Reports: Hx Cholecystectomy - Immunizations Hx Diphtheria, Pertussis, Tetanus Vaccination: No Review of Systems - Review of Systems Constitutional: No symptoms reported EENT: No symptoms reported Cardiovascular: Edema - Bilateral lower extremities Respiratory: Short of breath Gastrointestinal: No symptoms reported Genitourinary: No symptoms reported Female Genitourinary: No symptoms reported Musculoskeletal: No symptoms reported Skin: No symptoms reported Hematologic/Lymphatic: No symptoms reported Neurological/Psychological: No symptoms reported Physical Exam - Vital signs Vitals: Temp Pulse Resp BP Pulse Ox 98.5 F 96 18 140/96 H 100 10/08/18 12:20 10/08/18 12:20 10/08/18 12:20 10/08/18 12:20 10/08/18 12:20 - Notes Notes: PHYSICAL EXAMINATION: GENERAL: Well-appearing, well-nourished and in no acute distress. HEAD: Atraumatic, normocephalic. EYES: Pupils equal round and reactive to light, extraocular movements intact, conjunctiva are normal. ENT: Nares patent, oropharynx clear without exudates. Moist mucous membranes. NECK: Normal range of motion, supple without lymphadenopathy LUNGS: Breath sounds clear to auscultation bilaterally and equal. No wheezes rales or rhonchi. HEART: Regular rate and rhythm without murmurs ABDOMEN: Soft, nontender, nondistended abdomen. No guarding, no rebound. No masses appreciated. Female : deferred Musculoskeletal: Normal range of motion, 1+ pitting edema to bilateral lower extremities. No cyanosis. NEUROLOGICAL: Cranial nerves grossly intact. Normal speech, normal gait. Normal sensory, motor exams PSYCH: Normal mood, normal affect. SKIN: Warm, Dry, normal turgor, no rashes or lesions noted. Course - Re-evaluation Re-evalutation: 10/08/18 19:10 CBC, CMP and BNP are unremarkable. EKG shows a sinus rhythm, rate of 89, QTc 434, normal axis with no ST segment elevations or depressions. Patient's physical examination is unremarkable and her lung sounds are clear and equal bilaterally. Patient does have 1+ pitting edema to bilateral lower extremities, slightly increased swelling to the right. A venous Doppler was ordered and performed which is negative for any acute SVT or DVT. Patient will be started on Lasix 20 mg daily for the next 2 weeks. Patient was educated on increasing her potassium intake and the importance of following up with primary care. - Vital Signs Vital signs: Temp Pulse Resp BP Pulse Ox 98.5 F 96 18 140/96 H 100 10/08/18 12:20 10/08/18 12:20 10/08/18 12:20 10/08/18 12:20 10/08/18 12:20 - Laboratory Result Diagrams: 10/08/18 13:58 10/08/18 13:58 Discharge - Discharge Clinical Impression: Peripheral edema Condition: Stable Disposition: HOME, SELF-CARE Additional Instructions: Edema, Peripheral You have swelling in your legs. This is called peripheral edema. It can be caused by "leaky capillaries," inflammation, disease of the leg veins, or excess salt and water in your body. Edema may be a sign of heart, kidney, or liver disease. A medical evaluation can determine if there is a serious underlying cause for your edema. Avoid prolonged standing. If you must sit for a long time, occasionally get up and walk around or elevate your legs. Support stockings can be helpful in limiting swelling. Often diuretic or water pills are used to remove excess salt and water from your body. Call the doctor or return if you develop increased swelling, pain, or redness, shortness of breath, chest pain, or any other significant change. Please take medication as prescribed. Please follow-up with primary care, call Thursday to schedule an appointment that way they can see you within 1 to 2 weeks. Return to the emergency department with any new or worsening symptoms. Drink plenty of fluids as this will help with the swelling. Elevate your legs as much as possible. Prescriptions: Furosemide [Lasix 20 mg Tablet] 20 mg PO QAM #14 tablet Referrals: TATUM LOYA MD [ACTIVE STAFF] - Follow up as needed
[2018-10-08] MEDS ORDERED: FUROSEMIDE 20 MG TABLET PO ONE (19:03)
[2018-10-08 19:48] VITALS: BP 130/85
--- NOTE | 2018-10-08 22:36 | EKG REPORT ---
SEVERITY:- NORMAL ECG - SINUS RHYTHM : Confirmed by: Sandeep Sorto 08-Oct-2018 22:34:55
== END 2018-10-08 19:48 | disposition home or self-care (01) ==
LOC: ER 11:56
DX: R60.0 Localized edema (principal); M79.89 Other specified soft tissue disorders; M79.604 Pain in right leg; M79.671 Pain in right foot; M25.561 Pain in right knee; R06.02 Shortness of breath; F17.200 Nicotine dependence, unspecified, uncomplicated; J45.909 Unspecified asthma, uncomplicated; E11.9 Type 2 diabetes mellitus without complications
CPT/HCPCS: 36415; 71046; 80053; 83880; 85025; 85610; 85730; 93005; 93010; 93971; 99284

== ENCOUNTER 2018-12-15 22:35 | Emergency (ER) | payer BC ==
[2018-12-16] MEDS ORDERED: NORMAL SALINE 1000 ML 1,000 ML IV ONE (00:45)
[2018-12-16] MEDS ORDERED: METOCLOPRAMIDE HCL INJ/PF 10 MG/2 ML SDV IV ONE (00:45)
[2018-12-16] MEDS ORDERED: DIPHENHYDRAMINE HCL 50 MG/ML VIAL IV ONE (00:45)
[2018-12-16 02:31] LABS: APPEARANCE,URINE CLEAR; BILIRUBIN,URINE NEGATIVE (NEGATIVE); COLOR,URINE YELLOW; GLUCOSE, URINE NEGATIVE (NEGATIVE); KETONES,URINE NEGATIVE (NEGATIVE); LEUKOCYTE ESTERASE,URINE NEGATIVE (NEGATIVE); NITRITE,URINE NEGATIVE (NEGATIVE); PROTEIN,URINE NEGATIVE (NEGATIVE); URINE SPECIFIC GRAVITY 1.008; UROBILINOGEN,URINE NEGATIVE mg/dL (<2.0)
[2018-12-16] MEDS ORDERED: KETOROLAC TROMETHAMINE INJ/PF 30 MG/1 ML SDV IV ONE (02:52)
[2018-12-16 03:20] LABS: ALANINE AMINOTRANSFERASE 29 U/L (9-52); ALBUMIN 3.9 g/dL (3.5-5.0); ALKALINE PHOSPHATASE 45 U/L (38-126); ANION GAP 5 (5-19); ASPARTATE AMINO TRANSFERASE 17 U/L (14-36); BILIRUBIN,DIRECT 0.2 mg/dL (0.0-0.4); BILIRUBIN,TOTAL 0.2 mg/dL (0.2-1.3); BLOOD UREA NITROGEN 9 mg/dL (7-20); CARBON DIOXIDE 25 mmol/L (22-30); CHLORIDE 111 mmol/L (98-107); GLUCOSE 114 mg/dL (75-110); TOTAL PROTEIN 6.6 g/dL (6.3-8.2)
[2018-12-16 03:21] LABS: ABSOLUTE LYMPHOCYTES (AUTO) 1.5 10^3/uL (0.5-4.7); ABSOLUTE MONOCYTES (AUTO) 0.4 10^3/uL (0.1-1.4); BASOPHILS % (AUTO) 0.5 % (0-2); EOSINOPHILS % (AUTO) 0.1 % (0-6); HEMATOCRIT 43.5 % (36.0-47.0); HEMOGLOBIN 14.7 g/dL (12.0-15.5); LYMPHOCYTES % (AUTO) 15.4 % (13-45); MEAN CORPUSCULAR HEMOGLOBIN 29.8 pg (27.0-33.4); MEAN CORPUSCULAR HGB CONC 33.9 g/dL (32.0-36.0); MEAN CORPUSCULAR VOLUME 88 fl (80-97); MONOCYTES % (AUTO) 3.9 % (3-13); PLATELET COUNT 250 10^3/uL (150-450); RED BLOOD COUNT 4.95 10^6/uL (3.72-5.28); RED CELL DISTRIBUTION WIDTH 12.3 % (11.5-14.0); SEGMENTED NEUTROPHILS % (AUTO) 80.1 % (42-78); TOTAL CELLS COUNTED % (AUTO) 100 %
[2018-12-16 03:58] LABS: INTERNATIONAL RATION (INR) 1.02; PROTHROMBIN TIME 13.4 SEC (11.4-15.4)
[2018-12-16 03:59] LABS: PARTIAL THROMBOPLASTIN TIME 28.3 SEC (23.5-35.8)
[2018-12-16] MEDS ORDERED: ONDANSETRON ODT 4 MG TAB (6 TAB/ER DISP) PO PRN (04:07)
[2018-12-16] MEDS ORDERED: DOXYCYCLINE HYCLATE 100 MG TABLET PO ONE (04:07)
--- NOTE | 2018-12-16 04:15 | ER Document Report ---
ED General - General Chief Complaint: Headache Stated Complaint: NAUSEA, HEADACHE Time Seen by Provider: 12/16/18 00:37 TRAVEL OUTSIDE OF THE [place] IN LAST 30 DAYS: No - Related Data Allergies/Adverse Reactions: No Known Allergies Allergy (Verified 11/04/17 10:49) Past Medical History - Social History Smoking Status: Current Every Day Smoker Chew tobacco use (# tins/day): No Frequency of alcohol use: Occasional Drug Abuse: None Family History: Reviewed & Not Pertinent Patient has suicidal ideation: No Patient has homicidal ideation: No - Past Medical History Cardiac Medical History: Reports: Hx Heart Attack - "Mild CA" cause unknown Denies: Hx Coronary Artery Disease, Hx Hypertension Pulmonary Medical History: Reports: Hx Asthma - Sees Dr. Tabares , Hx Bronchitis, Hx Pneumonia Neurological Medical History: Reports: Hx Migraine, Hx Seizures - "I have small seizures", no medications at this time . Denies: Hx Cerebrovascular Accident Endocrine Medical History: Reports: Hx Diabetes Mellitus Type 2 Renal/ Medical History: Denies: Hx Peritoneal Dialysis GI Medical History: Reports: Hx Cirrhosis, Hx Gastroesophageal Reflux Disease Musculoskeletal Medical History: Denies Hx Arthritis Past Surgical History: Reports: Hx Cholecystectomy - Immunizations Hx Diphtheria, Pertussis, Tetanus Vaccination: No Physical Exam - Vital signs Vitals: Temp Pulse Resp BP Pulse Ox 97.7 F 59 L 22 H 125/81 85 L 12/15/18 22:43 12/15/18 22:43 12/15/18 22:43 12/15/18 22:43 12/15/18 22:43 Course - Re-evaluation Re-evalutation: 12/16/18 04:16 Exact cause of patient's fever is not 100% clear. She is afebrile here. She asked has not had a fever for the last few days. She has had some vomiting. We will give her Zofran. She does have some headache in association with her illness. She also has large amount body aches. She says she actually gets these headaches frequently has migraines and says he will come on randomly but also come on with stressors such as illness. I do not suspect bacterial meningitis as the patient has had symptoms now for a week and is not confused or altered anyway and is not extraordinarily sick appearing. I do not suspect encephalitis as the patient again is not confused or altered in any way. I informed her that there is always possible she could have viral meningitis but this is usually self-limiting. I did offer a lumbar puncture patient says that she rather forego the lumbar puncture at this time. I did explain to her the p ossibility of recommend spotted fever based on her flulike symptoms in mid [place]. I did recommend starting her on doxycycline which patient agrees to go forward with. I informed her that if her symptoms are not improving the next 2 to 3 days that she must return to the ER or follow-up with her doctor for reevaluation. Patient to return to ER immediately if she has worsening of her symptoms, confusion, recurrent fevers, or feels like she is worsenign in any way. Patient agrees with plan and will be discharged home. Dictation of this chart was performed using voice recognition software; therefore, there may be some unintended grammatical errors. - Vital Signs Vital signs: Temp Pulse Resp BP Pulse Ox 97.7 F 59 L 22 H 125/81 85 L 12/15/18 22:43 12/15/18 22:43 12/15/18 22:43 12/15/18 22:43 12/15/18 22:43 - Laboratory Result Diagrams: 12/16/18 02:55 12/16/18 02:55 Laboratory results interpreted by me: 12/16/18 12/16/18 02:55 02:55 Seg Neutrophils % 80.1 H Chloride 111 H Glucose 114 H Discharge - Discharge Clinical Impression: bodyaches, Cough Vomiting Qualifiers: Vomiting type: unspecified Vomiting Intractability: non-intractable Nausea presence: with nausea Qualified Code(s): R11.2 - Nausea with vomiting, unspecified Condition: Good Disposition: HOME, SELF-CARE Additional Instructions: The exact cause of your fever and body aches is not 100% clear. Your laboratory work-up is unremarkable. Urine studies do not show evidence of infection. Chest x-ray does not show evidence pneumonia. I did send blood work looking for evidence of [place] spotted fever. We will go ahead and cover you with an antibiotic. I have also prescribed you Zofran which is a nausea medicine you can take as needed for vomiting up to one tablet every 4 hours. The antibiotic I am prescribing is called doxycycline. Doxycycline will make your skin more sensitive to the sun so please make sure you keep your skin covered or wear lopez nscreen whenever out in the sun. Please return to the ER or follow-up with a doctor in 2 days for reevaluation if your symptoms have not improved. Please return to the ER immediately if your symptoms worsen, you have recurrent fevers, intractable vomiting, feel any confusion, or feel like you are worsening in any way. Prescriptions: Doxycycline Hyclate 100 mg PO BID #14 capsule Ondansetron [Zofran Odt 4 mg Tablet] 1 tab PO Q4H PRN #15 tab.rapdis PRN Reason: For Nausea/Vomiting Forms: Return to Work
--- NOTE | 2018-12-16 04:24 | RADIOLOGY REPORT (SQ) ---
EXAM DESCRIPTION: XR CHEST 2 VIEWS COMPLETED DATE/TME: 12/16/2018 00:44 CLINICAL HISTORY: 33 years, Female, fever COMPARISON: 10/08/2018 NUMBER OF VIEWS: Two TECHNIQUE: Two views of the chest LIMITATIONS: None. FINDINGS: Lungs are clear. The heart is normal in size. There is no pneumothorax or pleural effusion. There is no acute fracture. IMPRESSION: No acute cardiopulmonary abnormality copyright 2010 [employer]- All Rights Reserved
[2018-12-16 04:32] VITALS: BP 107/66
[2018-12-18 01:36] LABS: ROCKY MTN SPOTTED FEV IGG EIA Negative (Negative)
[2018-12-18 18:54] LABS: ROCKY MTN SPOTTED FEVER IGM AB 0.21 index (0.00-0.89)
== END 2018-12-16 04:35 | disposition home or self-care (01) ==
LOC: ER 22:35
DX: R51 Headache (principal); R10.10 Upper abdominal pain, unspecified; R11.2 Nausea with vomiting, unspecified; R05 Cough; J45.909 Unspecified asthma, uncomplicated; E11.9 Type 2 diabetes mellitus without complications; R10.819 Abdominal tenderness, unspecified site; F17.200 Nicotine dependence, unspecified, uncomplicated; R09.89 Other specified symptoms and signs involving the circulatory and respiratory systems; Z87.19 Personal history of other diseases of the digestive system; Z86.69 Personal history of other diseases of the nervous system and sense organs; Z90.49 Acquired absence of other specified parts of digestive tract
CPT/HCPCS: 99284; 96361; 96374; 96375; 36415; 85025; 85610; 85730; 80053; 81001; 86757 ×2; 71046; J1200; J1885; J2765; J7030

== ENCOUNTER 2019-11-17 02:41 | Emergency (ER) | payer BC ==
[2019-11-17] MEDS ORDERED: KETOROLAC TROMETHAMINE 60 MG/2 ML SDV IM ONE (08:01)
--- NOTE | 2019-11-17 08:07 | ER Document Report ---
ED General - General Chief Complaint: Stiff Neck Stated Complaint: NECK/ARM PAIN Time Seen by Provider: 11/17/19 07:35 TRAVEL OUTSIDE OF THE [place] IN LAST 30 DAYS: No - HPI Notes: Chief complaint: Neck and jaw pain HPI: 34-year-old female with no primary care physician currently being followed by [facility] pain management because of cervical disc disease and chronic pain syndrome came in overnight complaining of popping in both sides of jaw and crepitus of neck and pain radiating into both shoulders and right anterior chest when she turns or moves her neck. She denies any new trauma. She denies fever. She denies coughing or shortness of breath. She is a daily smoker. She also has a history of COPD and is using metered-dose inhalers. Presently taking oxycodone and Flexeril. She says she sometimes supplements this with some OTC Motrin although she is not taking this on a regular basis. - Related Data Allergies/Adverse Reactions: No Known Allergies Allergy (Verified 11/17/19 07:26) Home Medications: exelgo. oxycodone. flexeril. lyrica. respiril. advir. spiriva Past Medical History - General Information source: Patient, [facility] Records - Social History Smoking Status: Current Every Day Smoker Chew tobacco use (# tins/day): No Frequency of alcohol use: None Drug Abuse: None Family History: Reviewed & Not Pertinent - Past Medical History Cardiac Medical History: Reports: Hx Heart Attack - "Mild CA" cause unknown Denies: Hx Coronary Artery Disease, Hx Hypertension Pulmonary Medical History: Reports: Hx Asthma - Sees Dr. Tabares , Hx Bronchitis, Hx Pneumonia Neurological Medical History: Reports: Hx Migraine, Hx Seizures - "I have small seizures", no medications at this time . Denies: Hx Cerebrovascular Accident Endocrine Medical History: Reports: Hx Diabetes Mellitus Type 2 Renal/ Medical History: Denies: Hx Peritoneal Dialysis GI Medical History: Reports: Hx Cirrhosis, Hx Gastroesophageal Reflux Disease Musculoskeletal Medical History: Denies Hx Arthritis Past Surgical History: Reports: Hx Cholecystectomy, Hx Orthopedic Surgery - left wrist - Immunizations Hx Diphtheria, Pertussis, Tetanus Vaccination: No Review of Systems - Review of Systems Notes: Constitutional: Negative for fever. HENT: Negative for sore throat. Eyes: Negative for visual changes. Cardiovascular: As per HPI. Respiratory: As per HPI. Gastrointestinal: Negative for abdominal pain, vomiting or diarrhea. Genitourinary: Negative for dysuria. Musculoskeletal: As per HPI. Skin: Negative for rash. Neurological: Negative for headaches, weakness or numbness. 10 point ROS negative except as marked above and in HPI. Physical Exam - Vital signs Vitals: Temp Pulse Resp BP Pulse Ox 98.3 F 109 H 16 145/104 H 99 11/17/19 02:46 11/17/19 02:46 11/17/19 02:46 11/17/19 02:46 11/17/19 02:46 - Notes Notes: GENERAL: Well-developed well-nourished appearing in no acute distress. SKIN: Good turgor no rashes. HEAD: Normocephalic atraumatic. EYES: PERRLA. EOMI. Conjunctivae and sclerae clear. EARS: CANALS AND TMS CLEAR. NOSE: CLEAR. MOUTH: Moist mucosa. Good dentition. No stridor or edema. No drooling. NECK: Diffuse tenderness posterior cervical area with palpable muscular spasm. Full range of motion. No step-off or crepitus. Pain in shoulders and right chest areas reproduced with active/passive movement of neck. No masses or thyromegaly. No adenopathy. Carotids 2+ without bruits. No JVD. BACK: Symmetrical without tenderness. CHEST: Respirations unlabored. Few faint end expiratory wheezes bilaterally. HEART: Regular rhythm. No murmur gallop or rub. ABDOMEN: Soft nontender without masses, organomegaly or rebound. Bowel sounds normally active. No bruits. GENITALIA: Deferred. EXTREMITIES: No edema. No calf tenderness. Cap refill less than 1.5 seconds. Dorsalis pedis and posterior tibial pulses 3+ and symmetrical. NEUROLOGICAL: GCS 15. Alert and oriented x3. Normal gait. Fluent speech. Cranial nerves II through XII intact. Sensorimotor and cerebellar normal. Normal tone. PSYCHIATRIC: Flat affect. Course - Re-evaluation Re-evalutation: 11/17/19 09:17 Point of Care glucose is 108. Twelve-lead EKG shows no acute changes. Plain films of the C-spine showed narrowing C5-C6 interspace. Patient was given an injection of Toradol here and she says that this really did not help her pain very much. This lady is already on opiates at home from her pain management clinic. I think she is basically having exacerbation of chronic pain here. I will not be prescribing any additional opiates for her today. I am going to put her on some naproxen and Zanaflex and instruct her to see her pain management physician. - Vital Signs Vital signs: Temp Pulse Resp BP Pulse Ox 98.1 F 98 18 139/73 H 98 11/17/19 07:37 11/17/19 07:37 11/17/19 07:37 11/17/19 07:37 11/17/19 07:37 Discharge - Discharge Clinical Impression: Cervical radiculitis, Chronic pain syndrome Condition: Stable Disposition: HOME, SELF-CARE Additional Instructions: Take prescribed medications as instructed. Schedule follow-up visit with your pain management physician. Prescriptions: Naproxen 500 mg PO BID PRN #14 tablet PRN Reason: Tizanidine HCl [Zanaflex 4 Mg Tablet] 4 mg PO BID 15 Days #30 tablet
--- NOTE | 2019-11-17 09:03 | RADIOLOGY REPORT (SQ) ---
EXAM DESCRIPTION: CERV SP 4 OR 5 VIEWS IMAGES COMPLETED DATE/TIME: 11/17/2019 8:26 am REASON FOR STUDY: pain COMPARISON: None. NUMBER OF VIEWS: Five views. TECHNIQUE: AP, lateral, obliques and odontoid radiographic images acquired of the cervical spine. LIMITATIONS: None. FINDINGS: MINERALIZATION: Normal. ALIGNMENT: There is reversal of the normal lordotic curvature centered at the C5 level. VERTEBRAE: Vertebral bodies of normal height. DISCS: Trace loss of intervertebral disc height at the C5/6 level without significant marginal osteop hytes. FORAMINA: No osteophytes or foraminal narrowing. LATERAL AND POSTERIOR ELEMENTS: Facets, lateral masses and spinous processes without significant find ings. HARDWARE: None in the spine. SOFT TISSUES: No masses or calcifications. Lung apices clear. OTHER: No other significant finding. IMPRESSION: No evidence of acute osseous injury. Trace disc disease at the C5/6 level. TECHNICAL DOCUMENTATION: JOB ID: [id number] 2010 [employer]- All Rights Reserved Reading location - IP/workstation name: [email or web address]
[2019-11-17 09:32] VITALS: BP 115/92
--- NOTE | 2019-11-17 09:46 | EKG REPORT ---
SEVERITY:- BORDERLINE ECG - SINUS RHYTHM PROBABLE LEFT ATRIAL ABNORMALITY : Confirmed by: Michelle Oconnell MD 17-Nov-2019 09:45:11
== END 2019-11-17 09:33 | disposition home or self-care (01) ==
LOC: ER 02:41
DX: M54.12 Radiculopathy, cervical region (principal); M43.6 Torticollis; G89.4 Chronic pain syndrome; F17.200 Nicotine dependence, unspecified, uncomplicated; E11.9 Type 2 diabetes mellitus without complications; I25.2 Old myocardial infarction; Z90.49 Acquired absence of other specified parts of digestive tract
CPT/HCPCS: 93005; 99284; 96372; 82962; 72050; 93010; J1885

== ENCOUNTER 2019-11-28 04:32 | Emergency (ER) | payer BC ==
--- NOTE | 2019-11-28 05:30 | RADIOLOGY REPORT (SQ) ---
EXAM DESCRIPTION: XR CHEST 1 VIEW COMPLETED DATE/TME: 11/28/2019 04:56 CLINICAL HISTORY: 34 years, Female, SOB COMPARISON: 12/16/2018 chest NUMBER OF VIEWS: 1 TECHNIQUE: Portable chest LIMITATIONS: None. FINDINGS: Heart size normal. Lungs clear. No pneumothorax IMPRESSION: Negative chest copyright 2010 [employer]- All Rights Reserved
[2019-11-28 05:51] LABS: ABSOLUTE BASOPHILS # (AUTO) 0.1 10^3/uL (0.0-0.2); ABSOLUTE EOSINOPHILS # (AUTO) 0.1 10^3/uL (0.0-0.6); ABSOLUTE MONOCYTES (AUTO) 0.4 10^3/uL (0.1-1.4); ABSOLUTE NEUT (AUTO) 4.8 10^3/uL (1.7-8.2); BASOPHILS % (AUTO) 0.8 % (0-2); EOSINOPHILS % (AUTO) 1.4 % (0-6); HEMATOCRIT 41.9 % (36.0-47.0); HEMOGLOBIN 14.8 g/dL (12.0-15.5); LYMPHOCYTES % (AUTO) 27.4 % (13-45); MEAN CORPUSCULAR HEMOGLOBIN 31.7 pg (27.0-33.4); MEAN CORPUSCULAR HGB CONC 35.4 g/dL (32.0-36.0); MEAN CORPUSCULAR VOLUME 90 fl (80-97); MONOCYTES % (AUTO) 5.8 % (3-13); PLATELET COUNT 203 10^3/uL (150-450); RED BLOOD COUNT 4.67 10^6/uL (3.72-5.28); RED CELL DISTRIBUTION WIDTH 12.6 % (11.5-14.0); SEGMENTED NEUTROPHILS % (AUTO) 64.6 % (42-78); TOTAL CELLS COUNTED % (AUTO) 100 %; WHITE BLOOD COUNT 7.4 10^3/uL (4.0-10.5)
[2019-11-28 06:08] LABS: ALKALINE PHOSPHATASE 44 U/L (38-126); ANION GAP 5 (5-19); ASPARTATE AMINO TRANSFERASE 26 U/L (14-36); BILIRUBIN,TOTAL 0.3 mg/dL (0.2-1.3); BLOOD UREA NITROGEN 14 mg/dL (7-20); CREATINE KINASE 27 U/L (30-135); GLUCOSE 111 mg/dL (75-110); POTASSIUM 3.7 mmol/L (3.6-5.0); TOTAL PROTEIN 6.6 g/dL (6.3-8.2)
[2019-11-28 06:13] LABS: CARBON DIOXIDE 25 mmol/L (22-30); CHLORIDE 106 mmol/L (98-107)
--- NOTE | 2019-11-28 06:21 | EKG REPORT ---
SEVERITY:- BORDERLINE ECG - SINUS RHYTHM PROBABLE LEFT ATRIAL ABNORMALITY : Confirmed by: Virgilio Pena MD 28-Nov-2019 06:20:55
[2019-11-28 06:27] LABS: CREATINE KINASE MB < 0.22 ng/mL (<4.55); TROPONIN I < 0.012 ng/mL
--- NOTE | 2019-11-28 09:11 | RADIOLOGY REPORT (SQ) ---
EXAM DESCRIPTION: CT CERVICAL SPINE WITHOUT IMAGES COMPLETED DATE/TIME: 11/28/2019 8:21 am REASON FOR STUDY: left sided neck pain(disc disease history) COMPARISON: Conventional radiographs obtained 11/17/2019 TECHNIQUE: Axial images acquired through the cervical spine without intravenous contrast. Images re viewed with lung, soft tissue and bone windows. Reconstructed coronal and sagittal MPR images review ed. Images stored on PACS. All CT scanners at this facility use dose modulation, iterative reconstruction, and/or weight based d osing when appropriate to reduce radiation dose to as low as reasonably achievable (ALARA). [facility]: Dose Right [facility]: CareDose [facility]: Dose Right [facility]: Teradose 4D [facility]: DNAe LTD RADIATION DOSE: CT Rad equipment meets quality standard of care and radiation dose reduction techniq ues were employed. CTDIvol: 17.7 mGy. DLP: 332 mGy-cm. mGy. LIMITATIONS: None. FINDINGS: ALIGNMENT: There is reversal of the normal cervical lordosis. MINERALIZATION: Normal. VERTEBRAL BODIES: No fractures or dislocation. DISCS: C1-C2: No significant spinal stenosis or exit foraminal stenosis. C2-C3: No significant spinal stenosis or exit foraminal stenosis. C3-C4: No central stenosis. Asymmetric facet arthropathy on the left with osteophytic spurring off t he left posterolateral vertebral body resulting in asymmetric narrowing of the left neural foramina. C4-C5: No significant central stenosis. No significant foraminal narrowing. C5-C6: Prominent posterior osteophytes resulting in mild to moderate central stenosis. Slight asymme tric narrowing of the left neural foramina. C6-C7: No significant spinal stenosis or exit foraminal stenosis. C7-T1: No significant spinal stenosis or exit foraminal stenosis. FACETS, LATERAL MASSES, POSTERIOR ELEMENTS: No fractures. No dislocation. No acute findings. HARDWARE: None in the spine. VISUALIZED RIBS: No fractures. LUNG APICES AND SOFT TISSUES: No significant or acute findings. OTHER: No other significant finding. IMPRESSION: 1. Asymmetric foraminal narrowing on the left at C3-4 as described above. 2. Mild to moderate central stenosis is C5-C6 with asymmetric narrowing of the left neural foramina. TECHNICAL DOCUMENTATION: JOB ID: [id number] Quality ID # [id number]: Final reports with documentation of one or more dose reduction techniques (e.g., Au tomated exposure control, adjustment of the mA and/or kV according to patient size, use of iterative reconstruction technique) 2010 [employer]- All Rights Reserved Reading location - IP/workstation name: [email or web address]
[2019-11-28] MEDS ORDERED: KETOROLAC TROMETHAMINE INJ/PF 30 MG/1 ML SDV IV ONE (09:14)
[2019-11-28] MEDS ORDERED: METHYLPREDNISOLONE INJ 125 MG/2 ML SDV IV ONE (09:14)
[2019-11-28] MEDS ORDERED: DIAZEPAM INJ 10 MG/2 ML DISP.SYRIN IV ONE (09:15)
[2019-11-28] MEDS ORDERED: DEXAMETHASONE SOD PHOS INJ 10 MG/1 ML VIAL IM ONE (09:22)
[2019-11-28] MEDS ORDERED: DIAZEPAM 5 MG TABLET PO ONE (09:22)
[2019-11-28] MEDS ORDERED: KETOROLAC TROMETHAMINE 60 MG/2 ML SDV IM ONE (09:22)
--- NOTE | 2019-11-28 10:01 | ER Document Report ---
Entered by SONIA ROBLERO SCRIBE 11/28/19 0722 Acting as scribe for:REDDY MCCOY MD ED General - General Chief Complaint: Stiff Neck Stated Complaint: CAN'T BEND LEFT LEG, SHORTNESS OF BREATH Time Seen by Provider: 11/28/19 06:13 Information source: Patient Notes: This 34 year old female patient presents to the emergency department today with complaints of chronic neck pain. Patient states she visited the ED x11 days ago for her neck pain. Patient states she is a patient at the pain clinic and has several medications to control her neck pain. Patient states she has an appointment in x3 days at the pain clinic. Patient states she sometimes has trouble moving her legs, causing her to feel anxious and short of breath. TRAVEL OUTSIDE OF THE [place] IN LAST 30 DAYS: No - Related Data Allergies/Adverse Reactions: No Known Allergies Allergy (Verified 11/17/19 07:26) Past Medical History - General Information source: Patient - Social History Smoking Status: Current Every Day Smoker Cigarette use (# per day): Yes Family History: Reviewed & Not Pertinent - Past Medical History Cardiac Medical History: Reports: Hx Heart Attack - "Mild [place]" cause unknown Pulmonary Medical History: Reports: Hx Asthma - Sees Dr. Tabares , Hx Bronchitis, Hx Pneumonia Neurological Medical History: Reports: Hx Migraine, Hx Seizures - "I have small seizures", no medications at this time Endocrine Medical History: Reports: Hx Diabetes Mellitus Type 2 GI Medical History: Reports: Hx Cirrhosis, Hx Gastroesophageal Reflux Disease Past Surgical History: Reports: Hx Cholecystectomy, Hx Orthopedic Surgery - left wrist - Immunizations Hx Diphtheria, Pertussis, Tetanus Vaccination: No Review of Systems - Review of Systems Constitutional: No symptoms reported EENT: No symptoms reported Cardiovascular: No symptoms reported Respiratory: See HPI, Short of breath Gastrointestinal: No symptoms reported Genitourinary: No symptoms reported Female Genitourinary: No symptoms reported Musculoskeletal: See HPI, Neck pain Skin: No symptoms reported Hematologic/Lymphatic: No symptoms reported Neurological/Psychological: See HPI, Anxiety -: Yes All other systems reviewed and negative Physical Exam - Vital signs Vitals: Temp Pulse Resp BP Pulse Ox 98.8 F 102 H 20 146/93 H 99 11/28/19 04:38 11/28/19 04:38 11/28/19 04:38 11/28/19 04:38 11/28/19 04:38 - General General appearance: Appears well, Alert - HEENT Head: Normocephalic, Atraumatic Eyes: Normal Pupils: PERRL - Respiratory Respiratory status: No respiratory distress Chest status: Nontender Breath sounds: Normal Chest palpation: Normal - Cardiovascular Rhythm: Regular Heart sounds: Normal auscultation Murmur: No - Abdominal Inspection: Normal Distension: No distension Bowel sounds: Normal Tenderness: Nontender - Extremities General upper extremity: Normal inspection, Normal ROM. No: Edema General lower extremity: Normal inspection, Nontender, Normal ROM, Normal strength. No: Edema - Neurological Neuro grossly intact: Yes Cognition: Normal Orientation: AAOx4 Speech: Normal Cranial nerves: Normal Cerebellar coordination: Normal Motor strength normal: LUE, RUE, LLE, RLE Additional motor exam normals: Equal manager freelance, Dorsiflexion, Plantar flexion Sensory: Normal Notes: Sensation intact in bilateral lower extremities. Normal strength and Full ROM. 5/5 manager freelance strength of bilateral upper extremities. No pronator drift. - Psychological Associated symptoms: Normal affect, Normal mood - Skin Skin Temperature: Warm Skin Moisture: Dry Skin Color: Normal Course - Re-evaluation Re-evalutation: 11/28/19 09:52 Patient with left-sided muscle spasms of the neck. Also pain in the area. Patient is on chronic pain medications from the pain clinic due to her cervical disc disease that is already known in her neck. Patient states the muscle relaxant that was given was not working however patient is already on Flexeril. Patient is also on narcotic medications prescribed by the pain clinic. There is no new trauma. Patient reports that she feels spastic and has pain when she walks or moves. Denies any falls. - Vital Signs Vital signs: Temp Pulse Resp BP Pulse Ox 98.6 F 105 H 15 122/83 98 11/28/19 05:27 11/28/19 04:39 11/28/19 06:00 11/28/19 05:27 11/28/19 06:00 11/28/19 09:53 Vital signs stable - Laboratory Result Diagrams: 11/28/19 05:25 11/28/19 05:25 Laboratory results interpreted by me: 11/28/19 05:25 Sodium 135.7 L Glucose 111 H Creatine Kinase 27 L 11/28/19 09:54 Laboratories essentially within normal limits. - Diagnostic Test Radiology reviewed: Image reviewed, Reports reviewed Radiology results interpreted by me: 11/28/19 09:53 CT scan of neck shows multilevel arthropathy and cervical stenosis. Greatest at the C5-6 and C3 4 intervals. There is foraminal narrowing stenosis on the left side. Also noted there is reversal of the normal curvature of the neck. Chest x-ray shows no acute process. 11/28/19 09:55 - EKG Interpretation by Me Additional EKG results interpreted by me: 11/28/19 09:54 Lead EKG shows normal sinus rhythm rate of 96 left atrial abnormality noted. No acute ST changes. Discharge - Discharge Clinical Impression: Degenerative disc disease, cervical, Muscle spasm, Chronic pain Disposition: HOME, SELF-CARE Additional Instructions: Muscle Relaxers Muscle relaxing medications are usually prescribed for acute muscle spasm or injury to the neck and back. They are often combined with antiinflammatory pain medication for increased relief. You may stop the muscle relaxer when the pain and stiffness have improved. Start the medication again if spasms recur. Muscle relaxers may cause drowsiness, especially with the first dose. Do not operate machinery or drive while under the effects of the medication. Most muscle relaxers last up to 24 hours. Do not combine the medication with alcohol. You are already taking muscle relaxant Flexeril which I recommended you continue. Also I recommend you continue your usual medicines that you are taking from the chronic pain clinic. Today your CT scan shows that there is foraminal narrowing C3-4, and at C5-6.. There is also multilevel osteophytes and degenerative changes in your cervical spine. There was no acute fracture to suggest that there is anything new about your cervical spine today. Please follow-up with your appointment you have on this with the pain clinic. The additional medicine we are adding today is Medrol Dosepak to consider and hope that the steroids will help decrease some of your discomfort in your neck. Prescriptions: Methylprednisolone [Medrol Dosepack (4 mg/Tab) 21 Tab/Dosepak] 4 mg PO ASDIR PRN #21 tab.ds.pk PRN Reason: I personally performed the services described in the documentation, reviewed and edited the documentation which was dictated to the scribe in my presence, and it accurately records my words and actions.
[2019-11-28 10:09] LABS: APPEARANCE,URINE SLIGHTLY-CLOUDY; BILIRUBIN,URINE SMALL (NEGATIVE); COLOR,URINE YELLOW; GLUCOSE, URINE NEGATIVE (NEGATIVE); KETONES,URINE TRACE mg/dL (NEGATIVE); LEUKOCYTE ESTERASE,URINE TRACE (NEGATIVE); NITRITE,URINE NEGATIVE (NEGATIVE); PROTEIN,URINE 30 mg/dL (NEGATIVE); URINE SPECIFIC GRAVITY 1.027; UROBILINOGEN,URINE NEGATIVE mg/dL (<2.0)
[2019-11-28 10:24] VITALS: BP 126/90
== END 2019-11-28 10:21 | disposition home or self-care (01) ==
LOC: ER 04:32
DX: M50.30 Other cervical disc degeneration, unspecified cervical region (principal); G89.29 Other chronic pain; R06.02 Shortness of breath; F17.210 Nicotine dependence, cigarettes, uncomplicated; E11.9 Type 2 diabetes mellitus without complications; Z90.49 Acquired absence of other specified parts of digestive tract
CPT/HCPCS: 93005; 99284; 96372; 36415; 82553; 82550; 85025; 80053; 81001; 84484; 71045; 72125; 93010; J1885; J1100

== ENCOUNTER 2019-12-01 02:05 | Emergency (ER) | payer BC ==
[2019-12-01] MEDS ORDERED: DIAZEPAM INJ 10 MG/2 ML DISP.SYRIN IM ONE (04:07)
[2019-12-01] MEDS ORDERED: KETOROLAC TROMETHAMINE 60 MG/2 ML SDV IM ONE (04:07)
--- NOTE | 2019-12-01 04:09 | ER Document Report ---
ED General - General Chief Complaint: Neck and Upper Back Pain Stated Complaint: NECK & RIGHT HIP LOCKED UP, SHORTNESS OF BREATH Time Seen by Provider: 12/01/19 03:25 Mode of Arrival: Ambulatory Information source: Patient Notes: 34-year-old female patient presenting to the emergency department with complaints of abdominal distention, no bowel movement in "I do not know how long", low back pain and neck pain. Patient reports the low back pain and neck pain is chronic, she sees pain management for this. She reports she takes hydromorphone and oxycodone. She was seen here recently for the neck pain and was prescribed steroids that she did not take. Patient denies any new trauma to these areas. She denies any fever or chills. She denies any loss of control of bowel or bladder, she denies any urinary retention. TRAVEL OUTSIDE OF THE [place] IN LAST 30 DAYS: No - Related Data Allergies/Adverse Reactions: No Known Allergies Allergy (Verified 11/17/19 07:26) Past Medical History - General Information source: Patient - Social History Smoking Status: Current Every Day Smoker Frequency of alcohol use: Rare Drug Abuse: None Family History: Reviewed & Not Pertinent - Past Medical History Cardiac Medical History: Reports: Hx Heart Attack - "Mild [place]" cause unknown Denies: Hx Coronary Artery Disease, Hx Hypertension Pulmonary Medical History: Reports: Hx Asthma - Sees Dr. Tabares , Hx Bronchitis, Hx Pneumonia Neurological Medical History: Reports: Hx Migraine, Hx Seizures - "I have small seizures", no medications at this time . Denies: Hx Cerebrovascular Accident Endocrine Medical History: Reports: Hx Diabetes Mellitus Type 2 Renal/ Medical History: Denies: Hx Peritoneal Dialysis GI Medical History: Reports: Hx Cirrhosis, Hx Gastroesophageal Reflux Disease Musculoskeletal Medical History: Denies Hx Arthritis Past Surgical History: Reports: Hx Cholecystectomy, Hx Orthopedic Surgery - left wrist - Immunizations Hx Diphtheria, Pertussis, Tetanus Vaccination: No Review of Systems - Review of Systems Constitutional: No symptoms reported EENT: No symptoms reported Cardiovascular: No symptoms reported Respiratory: No symptoms reported Gastrointestinal: See HPI Genitourinary: No symptoms reported Female Genitourinary: No symptoms reported Musculoskeletal: See HPI Skin: No symptoms reported Hematologic/Lymphatic: No symptoms reported Neurological/Psychological: No symptoms reported Physical Exam - Vital signs Vitals: Temp Pulse Resp BP Pulse Ox 98.8 F 87 16 134/81 H 99 07/16/20 02:06 12/01/19 02:06 12/01/19 02:06 12/01/19 02:06 12/01/19 02:06 - Notes Notes: PHYSICAL EXAMINATION: GENERAL: Well-appearing, well-nourished and in no acute distress. HEAD: Atraumatic, normocephalic. EYES: Pupils equal round and reactive to light, extraocular movements intact, conjunctiva are normal. ENT: Nares patent, oropharynx clear without exudates. Moist mucous membranes. NECK: Normal range of motion, supple without lymphadenopathy LUNGS: Breath sounds clear to auscultation bilaterally and equal. No wheezes rales or rhonchi. HEART: Regular rate and rhythm without murmurs ABDOMEN: Mildly distended abdomen. No guarding, no rebound. No masses appreciated. Female : deferred Musculoskeletal: Normal range of motion, no pitting or edema. No cyanosis. NEUROLOGICAL: Cranial nerves grossly intact. Normal speech, normal gait. Normal sensory, motor exams PSYCH: Normal mood, normal affect. SKIN: Warm, Dry, normal turgor, no rashes or lesions noted. Course - Re-evaluation Re-evalutation: 12/01/19 04:09 Plan to obtain KUB to evaluate for constipation. There is nothing new about her neck and back pain. I discussed with her that she is already on the strongest pain medication which is stronger than anything that we would prescribe from the emergency department. I will give her dose of Toradol and Valium here in the emergency department. She will likely be discharged home after her KUB. KUB X-Ray 12/01/19 04:06 IMPRESSION: No acute intra-abdominal process is identified. Moderate hard stool within the colon Patient's KUB shows that she has hard stool within the colon. This is likely se condary to her chronic opioid use. This was discussed with the patient. Patient reports she always has problems with constipation and that she has tried "everything and nothing works". I offered her a soapsuds enema here in the emergency department. Patient declines this stating that it is not going to work. She reports she has never tried an enema in the past. She also reports that MiraLAX, Dulcolax, milk of magnesia and magnesium citrate do not work for her. I explained to her that we do not prescribe medications or give medications for chronic pain. She is now tearful. She continues to decline any treatment for the constipation. She has an appointment later today with her pain management doctor. She will follow-up with them. - Vital Signs Vital signs: Temp Pulse Resp BP Pulse Ox 98.3 F 83 16 118/87 H 98 12/01/19 05:37 12/01/19 05:37 12/01/19 05:37 12/01/19 05:37 12/01/19 05:37 Discharge - Discharge Clinical Impression: Constipation due to opioid therapy Chronic pain Qualifiers: Chronic pain type: other chronic pain Qualified Code(s): G89.29 - Other chronic pain Condition: Stable Disposition: HOME, SELF-CARE Additional Instructions: For your constipation: You should take 8 caps of MiraLAX and placed in 1 liter of Gatorade. Drink one half of the solution and wait 4 hours. If you do not have a bowel movement take the remaining half of the solution. Keep the appointment that you have with your pain management team. It does not seem that your chronic pain is under control at this time. Unfortunately here in the emergency department we do not treat chronic pain.
--- NOTE | 2019-12-01 04:36 | RADIOLOGY REPORT (SQ) ---
CLINICAL INDICATION: eval for constipation. TECHNIQUE: Single supine image(s) of the abdomen. COMPARISON: None. FINDINGS: A nonspecific gas pattern is identified. No evidence of high grade obstruction. Moderate hard stool within the colon. Postsurgical change from cholecystectomy. Visualized bones are unremarkable. IMPRESSION: No acute intra-abdominal process is identified. Moderate hard stool within the colon
[2019-12-01 05:39] VITALS: BP 118/87
== END 2019-12-01 05:37 | disposition home or self-care (01) ==
LOC: ER 02:05
DX: K59.03 Drug induced constipation (principal); G89.29 Other chronic pain; M54.2 Cervicalgia; M54.6 Pain in thoracic spine; F17.200 Nicotine dependence, unspecified, uncomplicated; I25.2 Old myocardial infarction
CPT/HCPCS: 99283; 96372; 74018; J3360; J1885

== ENCOUNTER 2019-12-02 23:59 | Emergency (ER) | payer BC ==
[2019-12-03] MEDS ORDERED: LIDOCAINE 5% (700 MG) TRANSDERMAL ADH..PATCH TP ONE (08:22)
--- NOTE | 2019-12-03 08:24 | ER Document Report ---
ED General - General Chief Complaint: Abdominal Pain Stated Complaint: HIP PAIN/NERVE PAIN/NECK PAIN Time Seen by Provider: 12/03/19 08:04 Primary Care Provider: [facility] [Provider Group] - Follow up in 3-5 days Notes: Patient is a 34-year-old female with chronic pain to her neck for the past year who presents emergency department with a chief complaint of the same symptoms she had when she was seen 2 days ago here in the emergency department. She states that she was started on prednisone and states, "It doesn't work." She is currently in pain management and takes oxycodone. She reports that she has some constipation, but ended up having diarrhea after taking Miralax yesterday. Denies any fever, vomiting, dysuria, or vaginal discharge. Patient has history of cholecystectomy. TRAVEL OUTSIDE OF THE [place] IN LAST 30 DAYS: No - Related Data Allergies/Adverse Reactions: No Known Allergies Allergy (Verified 11/17/19 07:26) Past Medical History - General Information source: Patient - Social History Smoking Status: Current Every Day Smoker Chew tobacco use (# tins/day): No Frequency of alcohol use: None Drug Abuse: None Family History: Reviewed & Not Pertinent Patient has homicidal ideation: No - Past Medical History Cardiac Medical History: Reports: Hx Heart Attack - "Mild [place]" cause unknown Denies: Hx Coronary Artery Disease, Hx Hypertension Pulmonary Medical History: Reports: Hx Asthma - Sees Dr. Tabares , Hx Bronchitis, Hx Pneumonia Neurological Medical History: Reports: Hx Migraine, Hx Seizures - "I have small seizures", no medications at this time . Denies: Hx Cerebrovascular Accident Endocrine Medical History: Reports: Hx Diabetes Mellitus Type 2 Renal/ Medical History: Denies: Hx Peritoneal Dialysis GI Medical History: Reports: Hx Cirrhosis, Hx Gastroesophageal Reflux Disease Musculoskeletal Medical History: Denies Hx Arthritis Past Surgical History: Reports: Hx Cholecystectomy, Hx Orthopedic Surgery - left wrist - Immunizations Hx Diphtheria, Pertussis, Tetanus Vaccination: No Review of Systems - Review of Systems Notes: REVIEW OF SYSTEMS: CONSTITUTIONAL : Denies recent illness. Denies recent unintentional weight loss. Denies fever, chills, or sweats. EENT: Denies eye, ear, throat, or mouth pain, discharge, or symptoms. Denies nasal or sinus congestion. CARDIOVASCULAR: Denies chest pain. RESPIRATORY: Denies shortness of breath, cough, congestion, difficulty breathing, or wheezing. GASTROINTESTINAL: See HPI. GENITOURINARY: Denies difficulty urinating, burning, blood in urine, urgency or frequency. MUSCULOSKELETAL: Denies neck and back pain. Denies joint pain or swelling. SKIN: Denies rash, itchiness, or lesions HEMATOLOGIC : Denies easy bruising or bleeding. LYMPHATIC: Denies swollen, painful, enlarged glands. NEUROLOGICAL: Denies no numbness or tingling denies weakness. Denies headache. Denies altered mental status. Denies alteration in speech. PSYCHIATRIC: Denies stress, anxiety, alteration in sleep patterns, or depression. All other systems reviewed and negative. Physical Exam - Vital signs Vitals: Temp Pulse Resp BP Pulse Ox 99.4 F 110 H 20 139/95 H 100 12/03/19 00:05 12/03/19 00:05 12/03/19 00:05 12/03/19 00:05 12/03/19 00:05 - Notes Notes: PHYSICAL EXAMINATION: GENERAL: Appears well, healthy, well-nourished, no acute distress. HEAD: Normocephalic, atraumatic. EYES: PERRL, conjunctiva normal, all extraocular movements intact, sclera nonic teric ENT: Moist mucous membranes. NECK: Supple, no noticeable swelling, redness, rash. Normal range of motion. LUNGS: Equal breath sounds bilaterally and clear to auscultation. No wheezes rales or rhonchi. CARDIOVASCULAR: S1-S2, regular rate, regular rhythm. Radial pulses 2+, normal. ABDOMEN: Normoactive bowel sounds. Soft, moderately tender abdomen. Palpable mass noted to right lower quadrant. Patient states that she has not felt that before. EXTREMITIES: Decreased range of motion to neck. Muscle tension noted to bilateral trapezius muscle. NEUROLOGICAL: Moves all extremities upon command. Strength 5/5 in all extremities. PSYCH: Normal mood, normal affect. SKIN: Warm, dry. No rash, lesions, ulcerations noted. Normal skin turgor. Course - Re-evaluation Re-evalutation: 12/03/19 09:40 I evaluated the patient and plan was to have the patient started on Robaxin and start lidocaine patches for her chronic neck pain. She was in agreement with this plan. Patient was placed up for discharge and then when the nurse went to go discharge the patient, the patient then had complaints of right hip pain and abdominal pain. She did not discuss this with me when I asked her if she had any questions prior to me putting her up for discharge. The nurse asked me to reevaluate the patient. I reevaluated her and she did have some tenderness noted to her right lower quadrant. She has no history of an appendectomy in the past. We will give the patient fluids, send her for CT of the abdomen pelvis, and draw labs. 12/03/19 13:45 CT read by the radiologist shows edema and to the subcutaneous tissue over the right and lower abdomens. Patient states that she used to have to put medication there. When I asked her what medication she placed there, she said that she did not know. No appendicitis noted. No mesenteric ischemia noted. Hematology is unremarkable. Chemistries show a sodium of 136. She was given IV fluids. Albumin was a little low. Lipase was normal. hCG is negative. Urinalysis is unremarkable. I discussed with the patient that being on chronic pain medicine will not help her abdominal pain. I discussed possibly cutting back on her chronic pain medicine. Patient will be referred to [facility] for surgery for her chronic back pain in her lower back that radiates to her right hip and bilateral neck. We will start her on Robaxin for pain since the Flexeril did not help her. We will also place her on Bentyl for her abdominal pain. Follow-up precautions were given. Verbal discharge instructions were given to the patient. They verbalized understanding. They are stable for discharge. - Vital Signs Vital signs: Temp Pulse Resp BP Pulse Ox 98.2 F 86 16 125/74 99 12/03/19 08:59 12/03/19 14:18 12/03/19 14:18 12/03/19 14:18 12/03/19 14:18 - Laboratory Result Diagrams: 12/03/19 10:10 12/03/19 10:54 Laboratory results interpreted by me: 12/03/19 12/03/19 10:54 12:29 Sodium 136.5 L Chloride 111 H Anion Gap 2 L Calcium 8.1 L Alkaline Phosphatase 30 L Total Protein 5.5 L Albumin 3.1 L Urine Ascorbic Acid 20 H Discharge - Discharge Clinical Impression: Degenerative disc disease, cervical, Muscle spasm, Constipation due to opioid therapy Chronic pain Qualifiers: Chronic pain type: other chronic pain Qualified Code(s): G89.29 - Other chronic pain Abdominal pain Qualifiers: Abdominal location: generalized Qualified Code(s): R10.84 - Generalized abdominal pain Condition: Stable Disposition: HOME, SELF-CARE Additional Instructions: You were seen today in the emergency department for neck pain. Follow-up with [facility] for surgery in regards to this issue. Follow-up with your pain management. Stop Taking your Flexeril and switch to Robaxin. Use lidocaine patches to help with the pain. See if you can get a referral for physical therapy. As far as your constipation goes, make sure you are eating plenty of fiber in your diet. Cut back on your pain medication, as this is causing you to become constipated. Use Bentyl for abdominal pain. Prescriptions: Dicyclomine HCl [Bentyl 20 mg Tablet] 20 mg PO QID PRN #30 tablet PRN Reason: Lidocaine [Lidoderm 5% (700 mg) Transdermal Patch] 1 patch TP DAILY #15 adh..patch Methocarbamol [Robaxin 750 mg Tablet] 750 mg PO Q4 #40 tablet Forms: Return to Work Referrals: [facility] ([facility] [Provider Group] - Follow up in 3-5 days
[2019-12-03] MEDS ORDERED: NORMAL SALINE 1000 ML 1,000 ML IV ONE (09:13)
[2019-12-03 10:23] LABS: ABSOLUTE BASOPHILS # (AUTO) 0.1 10^3/uL (0.0-0.2); ABSOLUTE EOSINOPHILS # (AUTO) 0.3 10^3/uL (0.0-0.6); ABSOLUTE MONOCYTES (AUTO) 0.5 10^3/uL (0.1-1.4); ABSOLUTE NEUT (AUTO) 4.9 10^3/uL (1.7-8.2); BASOPHILS % (AUTO) 0.8 % (0-2); EOSINOPHILS % (AUTO) 3.2 % (0-6); HEMATOCRIT 42.2 % (36.0-47.0); HEMOGLOBIN 14.5 g/dL (12.0-15.5); LYMPHOCYTES % (AUTO) 34.6 % (13-45); MEAN CORPUSCULAR HEMOGLOBIN 31.2 pg (27.0-33.4); MEAN CORPUSCULAR HGB CONC 34.3 g/dL (32.0-36.0); MEAN CORPUSCULAR VOLUME 91 fl (80-97); MONOCYTES % (AUTO) 5.5 % (3-13); PLATELET COUNT 191 10^3/uL (150-450); RED BLOOD COUNT 4.64 10^6/uL (3.72-5.28); RED CELL DISTRIBUTION WIDTH 12.8 % (11.5-14.0); SEGMENTED NEUTROPHILS % (AUTO) 55.9 % (42-78); TOTAL CELLS COUNTED % (AUTO) 100 %; WHITE BLOOD COUNT 8.8 10^3/uL (4.0-10.5)
[2019-12-03 11:22] LABS: ALBUMIN 3.1 g/dL (3.5-5.0); ALKALINE PHOSPHATASE 30 U/L (38-126); ASPARTATE AMINO TRANSFERASE 15 U/L (14-36); BILIRUBIN,TOTAL 0.3 mg/dL (0.2-1.3); BLOOD UREA NITROGEN 14 mg/dL (7-20); CALCIUM 8.1 mg/dL (8.4-10.2); GLUCOSE 95 mg/dL (75-110); POTASSIUM 3.7 mmol/L (3.6-5.0); TOTAL PROTEIN 5.5 g/dL (6.3-8.2)
[2019-12-03 11:27] LABS: CARBON DIOXIDE 24 mmol/L (22-30); CHLORIDE 111 mmol/L (98-107)
[2019-12-03 11:33] LABS: ANION GAP 2 (5-19)
[2019-12-03 13:02] LABS: APPEARANCE,URINE SLIGHTLY-CLOUDY; BILIRUBIN,URINE NEGATIVE (NEGATIVE); COLOR,URINE YELLOW; GLUCOSE, URINE NEGATIVE (NEGATIVE); KETONES,URINE NEGATIVE (NEGATIVE); LEUKOCYTE ESTERASE,URINE NEGATIVE (NEGATIVE); NITRITE,URINE NEGATIVE (NEGATIVE); PROTEIN,URINE NEGATIVE (NEGATIVE); URINE SPECIFIC GRAVITY 1.016; UROBILINOGEN,URINE NEGATIVE mg/dL (<2.0)
--- NOTE | 2019-12-03 13:29 | RADIOLOGY REPORT (SQ) ---
EXAM DESCRIPTION: CT ABD/PELVIS WITH IV ONLY IMAGES COMPLETED DATE/TIME: 12/03/2019 1:03 pm REASON FOR STUDY: abdominal pain; lump in RLQ COMPARISON: None. TECHNIQUE: CT scan of the abdomen and pelvis performed using helical scanning technique with dynamic intravenous contrast injection. No oral contrast. Images reviewed with lung, soft tissue, and bone windows. Reconstructed coronal and sagittal MPR images reviewed. Delayed images for evaluation of the urinary system also acquired. All images stored on PACS. All CT scanners at this facility use dose modulation, iterative reconstruction, and/or weight based d osing when appropriate to reduce radiation dose to as low as reasonably achievable (ALARA). [facility]: Dose Right [facility]: CareDose [facility]: Dose Right [facility]: Teradose 4D [facility]: FookyZ CONTRAST TYPE AND DOSE: contrast/concentration: Isovue 350.00 mmol/ml; Total Contrast Delivered: 79. 0 ml; Total Saline Delivered: 56.0 ml RENAL FUNCTION: None required. The patient is less than 50 years old. RADIATION DOSE: CT Rad equipment meets quality standard of care and radiation dose reduction techniq ues were employed. CTDIvol: 5.2 - 7.0 mGy. DLP: 681 mGy-cm.. LIMITATIONS: None. FINDINGS: LOWER CHEST: No significant findings. No nodules or infiltrates. LIVER: Normal size. No masses. No dilated ducts. SPLEEN: Normal size. No focal lesions. PANCREAS: No masses. No significant calcifications. No adjacent inflammation or peripancreatic fluid collections. Pancreatic duct not dilated. GALLBLADDER: Surgically absent. ADRENAL GLANDS: No significant masses or asymmetry. RIGHT KIDNEY AND URETER: No solid masses. No significant calcifications. No hydronephrosis or hyd roureter. LEFT KIDNEY AND URETER: No solid masses. No significant calcifications. No hydronephrosis or hydr oureter. AORTA AND VESSELS: No aneurysm. No dissection. Renal arteries, SMA, celiac without stenosis. RETROPERITONEUM: No retroperitoneal adenopathy, hemorrhage or masses. BOWEL AND PERITONEAL CAVITY: No masses or inflammatory changes. No free fluid or peritoneal masses. APPENDIX: Normal. PELVIS: No mass. No free fluid. Normal bladder. ABDOMINAL WALL: Focal edema in the subcutaneous soft tissues right and left, likely injection sites. BONES: No significant or acute findings. OTHER: No other significant finding. IMPRESSION: Edema in the subcutaneous soft tissues over the right and left lower abdomen DARCI, likely injection sites. No fluid collection. No acute intra-abdominal process. TECHNICAL DOCUMENTATION: JOB ID: [id number] Quality ID # [id number]: Final reports with documentation of one or more dose reduction techniques (e.g., Au tomated exposure control, adjustment of the mA and/or kV according to patient size, use of iterative reconstruction technique) 2010 [employer]- All Rights Reserved Reading location - IP/workstation name: [email or web address]
[2019-12-03 14:20] VITALS: BP 125/74
== END 2019-12-03 14:18 | disposition home or self-care (01) ==
LOC: ER 23:59
DX: K59.03 Drug induced constipation (principal); M50.30 Other cervical disc degeneration, unspecified cervical region; M62.838 Other muscle spasm; R10.84 Generalized abdominal pain; R10.9 Unspecified abdominal pain; G89.29 Other chronic pain; R19.7 Diarrhea, unspecified; Z79.899 Other long term (current) drug therapy; F17.200 Nicotine dependence, unspecified, uncomplicated; I25.2 Old myocardial infarction; J45.909 Unspecified asthma, uncomplicated; E11.9 Type 2 diabetes mellitus without complications
CPT/HCPCS: 99284; 96360; 96361; 36415; 83690; 84703; 85025; 80053; 81001; 74177; J7030

== ENCOUNTER 2019-12-04 23:10 | Emergency (ER) | payer BC ==
[2019-12-05] MEDS ORDERED: METHOCARBAMOL 750 MG TABLET PO ONE (04:56)
[2019-12-05 05:12] VITALS: BP 147/89
--- NOTE | 2019-12-05 06:30 | ER Document Report ---
Entered by JUAN LUZ SCRIBE 12/05/19 0451 Acting as scribe for:ANGIE ESTRADA IV, MD ED General - General Chief Complaint: Neck Pain >24hrs old Stated Complaint: NECK PAIN,SHORTNESS OF BREATH,CHILLS Time Seen by Provider: 12/05/19 04:37 Primary Care Provider: ALINA SUH MD [HONORARY] - Follow up as needed Mode of Arrival: Ambulatory Information source: Patient Notes: This 34 year old female patient presents to the ED today with complaints of worsening chronic neck pain for the past x1 week. This is the patient's fourth visit in the last x1 week for the same complaint. Patient states that the steroids she was prescribed made her nauseous and were not effective. Patient is currently in pain management and takes Flexeril, Oxycodone, Hydromorphone, and Temazepam. She also notes some numbness/tingling to her upper extremities. TRAVEL OUTSIDE OF THE [place] IN LAST 30 DAYS: No - Related Data Allergies/Adverse Reactions: No Known Allergies Allergy (Verified 11/17/19 07:26) Past Medical History - General Information source: Patient, [facility] Records - Social History Smoking Status: Current Every Day Smoker Cigarette use (# per day): Yes Chew tobacco use (# tins/day): No Smoking Education Provided: No Family History: Reviewed & Not Pertinent Patient has suicidal ideation: No Patient has homicidal ideation: No - Past Medical History Cardiac Medical History: Reports: Hx Heart Attack - "Mild [place]" cause unknown Pulmonary Medical History: Reports: Hx Asthma - Sees Dr. Tabares , Hx Bronchitis, Hx Pneumonia Neurological Medical History: Reports: Hx Migraine, Hx Seizures - "I have small seizures", no medications at this time Endocrine Medical History: Reports: Hx Diabetes Mellitus Type 2 GI Medical History: Reports: Hx Cirrhosis, Hx Gastroesophageal Reflux Disease Past Surgical History: Reports: Hx Cholecystectomy, Hx Orthopedic Surgery - left wrist - Immunizations Hx Diphtheria, Pertussis, Tetanus Vaccination: No Review of Systems - Review of Systems Constitutional: No symptoms reported EENT: No symptoms reported Cardiovascular: No symptoms reported Respiratory: No symptoms reported Gastrointestinal: No symptoms reported Genitourinary: No symptoms reported Female Genitourinary: No symptoms reported Musculoskeletal: See HPI, Neck pain Skin: No symptoms reported Hematologic/Lymphatic: No symptoms reported Neurological/Psychological: See HPI, Numbness, Tingling -: Yes All other systems reviewed and negative Physical Exam - Vital signs Vitals: Temp Pulse Resp BP Pulse Ox 98.2 F 94 18 136/83 H 97 12/05/19 00:07 12/05/19 00:07 12/05/19 00:07 12/05/19 00:07 12/05/19 00:07 - General General appearance: Alert In distress: None - HEENT Head: Normocephalic, Atraumatic Eyes: Normal, Other - No photophobia Pupils: PERRL Neck: Other - Mild bilateral trapezius muscle spasm, full rotational motion. No: Meningismus - Respiratory Respiratory status: No respiratory distress Chest status: Nontender Breath sounds: Normal Chest palpation: Normal - Cardiovascular Rhythm: Regular Heart sounds: Normal auscultation Murmur: No Friction rub: No Gallop: None auscultated - Abdominal Inspection: Normal Distension: No distension Bowel sounds: Normal Tenderness: Nontender - Abdomen soft Organomegaly: No organomegaly - Back Back: Normal, Nontender - Extremities General upper extremity: Normal inspection General lower extremity: Normal inspection - Neurological Neuro grossly intact: Yes Orientation: AAOx4 [place] Coma Scale Eye Opening: Spontaneous [place] Coma Scale Verbal: Oriented [place] Coma Scale Motor: Obeys Commands [place] Coma Scale Total: 15 - Psychological Associated symptoms: Normal affect, Normal mood - Skin Skin Temperature: Warm Skin Moisture: Dry Skin Color: Normal Course - Re-evaluation Re-evalutation: 12/05/19 04:51 Diagnosis and plan of care discussed with patient. Patient initially stated that she was only taking Flexeril and then asked if she was taking on any other medications admitted that she was taking oxycodone. This MD has already reviewed the [place] controlled substance database and asked the patient if she was also taking hydromorphone which she admitted to. This MD also asked the patient if she was taking temazepam, patient admitted to this also. This MD informed patient that from a narcotic and benzodiazepine standpoint, treatment of her pain seems to be at a maximum in terms of what she is currently being prescribed. This MD suggested that a different type of muscle relaxer such as Robaxin be used. Patient reluctantly agreed to try this medication. Patient states she cannot tolerate prednisone. This MD will give the patient dose of Robaxin now on a prescription for some more. - Vital Signs Vital signs: Temp Pulse Resp BP Pulse Ox 98.2 F 72 18 140/81 H 98 12/05/19 00:07 12/05/19 03:51 12/05/19 03:51 12/05/19 03:51 12/05/19 03:51 Discharge - Discharge Clinical Impression: Trapezius muscle spasm Condition: Stable Disposition: HOME, SELF-CARE Additional Instructions: HOME CARE INSTRUCTIONS & INFORMATION: Thank you for choosing us for your medical needs. We hope you're satisfied with the care you received. After you leave, you must properly care for your problem and, at the same time, observe its progress. Any condition can change. Some illnesses can change rapidly over hours or days. If your condition worsens, return to the Emergency Department or see your physician promptly. ABOUT YOUR X-RAYS AND EKG'S: If you had an EKG or X-rays taken, they have been read by the Emergency Physician. The X-rays and EKG's will also be read by a Radiologist or Candy Bar Attendant within 24 hours. If discrepancies are noted, you will be notified by telephone. Please be certain the ED has a correct telephone number & address where you can be reached. Also, realize that some fractures or abnormalities do not show up on initial X-rays. If your symptoms continue, see your physician. ABOUT YOUR LABORATORY TEST: If you had laboratory tests, the results have been reviewed by the Emergency Physician. Some test results (for example cultures) may not be available for several days. You will be contacted if any test result shows you need additional treatment. Please be certain the ED has a correct telephone number and address where you can be reached. ABOUT YOUR MEDICATIONS: You will receive instructions on how to take your medi cine on the prescription label you receive. Additional information may be provided by the Pharmacy. If you have questions afterwards, call the ED for clarification or further instructions. Some prescribed medications may cause drowsiness. Do not perform tasks such as driving a car or operating machinery without consulting your Pharmacist. If you feel you need a refill of pain medication, your condition will need re-evaluation. Please do not call for a refill of any medication. ABOUT YOUR SIGNATURE: Signature of this document acknowledges to followin. Understanding that you received emergency treatment and that you may be released before al medical problems are known or treated. Please be certain the ED has a correct phone number & address where you can be reached. 2. Acknowledgement that you will arrange for follow-up care as recommended. 3. Authorization for the Emergency Physician to provide information to your follow-up Physician in order to maximize your care. AT ANY TIME, IF YOUR SYMPTOMS CHANGE SIGNIFICANTLY OR WORSEN OR YOU DEVELOP NEW SYMPTOMS, RETURN TO THE EMERGENCY DEPARTMENT IMMEDIATELY FOR RE-EVALUATION. OUR GOAL IS TO PROVIDE EXCELLENT MEDICAL CARE! WE HOPE THAT WE HAVE MET YOUR EXPECTATIONS DURING YOUR EMERGENCY DEPARTMENT VISIT AND THAT YOU FEEL YOU HAVE RECEIVED EXCELLENT CARE! Muscle Relaxers Muscle relaxing medications are usually prescribed for acute muscle spasm or injury to the neck and back. They are often combined with antiinflammatory pain medication for increased relief. You may stop the muscle relaxer when the pain and stiffness have improved. Start the medication again if spasms recur. Muscle relaxers may cause drowsiness, especially with the first dose. Do not operate machinery or drive while under the effects of the medication. Most muscle relaxers last up to 24 hours. Do not combine the medication with alcohol. Prescriptions: Methocarbamol [Robaxin 750 mg Tablet] 1,500 mg PO TID PRN #30 tablet PRN Reason: Muscle Spasms Referrals: ALINA SUH MD [HONORARY] - Follow up as needed I personally performed the services described in the documentation, reviewed and edited the documentation which was dictated to the scribe in my presence, and it accurately records my words and actions.
== END 2019-12-05 05:15 | disposition home or self-care (01) ==
LOC: ER 23:10
DX: M62.830 Muscle spasm of back (principal); M54.2 Cervicalgia; G89.29 Other chronic pain; R20.0 Anesthesia of skin; R20.2 Paresthesia of skin; J45.909 Unspecified asthma, uncomplicated; E11.9 Type 2 diabetes mellitus without complications; F17.210 Nicotine dependence, cigarettes, uncomplicated; Z79.899 Other long term (current) drug therapy; Z79.891 Long term (current) use of opiate analgesic
CPT/HCPCS: 99282; J3490

== ENCOUNTER 2019-12-05 05:40 | Emergency (ER) | payer BC | END 2019-12-05 09:47 | disposition left against medical advice (07) | LOC: ER 05:40 | DX: Z53.21 Procedure and treatment not carried out due to patient leaving prior to being seen by health care provider (principal) ==

== ENCOUNTER 2019-12-08 03:56 | Emergency (ER) | payer BC ==
[2019-12-08 05:34] VITALS: BP 129/87
--- NOTE | 2019-12-08 06:10 | ER Document Report ---
ED General - General Chief Complaint: Neck Problem Stated Complaint: NECK PAIN/LEG PAIN/CHEST PAIN/BLURRED VISION Time Seen by Provider: 12/08/19 05:58 Notes: 34-year-old female with chronic back and neck pain on chronic oxycodone with multiple ED visits for same presents with ongoing pain in her neck right greater than left rating down her right arm with right arm tingling. She feels tingling numbness and weakness in all 4 extremities and has for over a year. This is been chronic and she actually has an appointment to see the spine doctors in about 3 or 4 days. She is not had a recent neck MRI. No saddle anesthesia but says that she is having both fecal and urinary incontinence for the last 3 days which is new. No fevers positive chills. TRAVEL OUTSIDE OF THE [place] IN LAST 30 DAYS: No - Related Data Allergies/Adverse Reactions: No Known Allergies Allergy (Verified 12/08/19 04:46) Home Medications: ROBAXIN. OXYCODONE(CHRONIC PAIN). SPIRIVA. ADVAIR Past Medical History - General Information source: Patient - Social History Smoking Status: Current Every Day Smoker Frequency of alcohol use: None Drug Abuse: None Family History: Reviewed & Not Pertinent Patient has homicidal ideation: No - Past Medical History Cardiac Medical History: Reports: Hx Heart Attack - "Mild CT" cause unknown Denies: Hx Coronary Artery Disease, Hx Hypertension Pulmonary Medical History: Reports: Hx Asthma - Sees Dr. Tabares , Hx Bronchitis, Hx Pneumonia Neurological Medical History: Reports: Hx Migraine, Hx Seizures - "I have small seizures", no medications at this time . Denies: Hx Cerebrovascular Accident Endocrine Medical History: Reports: Hx Diabetes Mellitus Type 2 Renal/ Medical History: Denies: Hx Peritoneal Dialysis GI Medical History: Reports: Hx Cirrhosis, Hx Gastroesophageal Reflux Disease Musculoskeletal Medical History: Denies Hx Arthritis Past Surgical History: Reports: Hx Cholecystectomy, Hx Orthopedic Surgery - left wrist - Immunizations Hx Diphtheria, Pertussis, Tetanus Vaccination: No Review of Systems - Review of Systems Notes: REVIEW OF SYSTEMS GEN: Denies fever, chills, weight loss ENT: Denies sore throat, nasal discharge, ear pain EYES: Denies blurry vision, eye pain, discharge CV: Denies chest pain, palpitations, edema RESP: Denies cough, shortness of breath, wheezing GI: Denies abdominal pain, nausea, vomiting, diarrhea MSK: Back pain neck pain extremity pain SKIN: Denies rash, skin lesions LYMPH: Denies swollen glands/lymph nodes NEURO: As numbness tingling all 4 extremities, generalized weakness PSYCH: Denies depression, suicidal or homicidal ideation PHYSICAL EXAMINATION General: No acute distress, well-nourished Head: Atraumatic, normocephalic ENT: Mouth normal, oropharynx moist, no exudates or tonsillar enlargement Eyes: Conjunctiva normal, pupils equal, lids normal Neck: No JVD, supple, no guarding CVS: Normal rate, regular rhythm, no murmurs Resp: No resp distress, equal and normal breath sounds bilaterally GI: Nondistended, soft, no tenderness to palpation, no rebound or guarding Ext: No deformities, no edema, normal range of motion in upper and lower ext Back: No CVA or midline TTP Skin: No rash, warm Lymphatic: No lymphadeopathy noted Neuro: Awake, alert. Face symmetric. GCS 15. After dependent weakness in all 4 extremities. Able to spread fingers. Tremor on exertion in all 4 extremities. 5 out of 5 strength in all major joints with good reflexes throughout, and breakaway weakness. Subjective decrease sensation in all 4 extremities distally. Psychiatric: Affect is flat depressed mood Normal perineal sensation, intact rectal tone Physical Exam - Vital signs Vitals: Temp Pulse Resp BP Pulse Ox 98.4 F 103 H 20 144/92 H 99 12/08/19 04:03 12/08/19 04:03 12/08/19 04:03 12/08/19 04:03 12/08/19 04:03 Course - Re-evaluation Re-evalutation: 12/08/19 06:40 Acute worsening weakness and pain in the setting of chronic musculoskeletal pain. The patient likely has fibromyalgia myofascial pain MS or some combination of the above given her overall mood weakness and chronic mus culoskeletal complaints but based on her exam today including a postvoid residual which shows undetectable bladder volume I do not think she has cauda equina, and can follow-up routinely in the next couple of days as already scheduled with Sheila short. She is had some prednisone side effect so we agreed on a short taper with Zofran prophylaxis. She says she had a fever but refers to only a temp of 99 in change, is afebrile here does not use injection drugs and is otherwise low risk for cauda equina syndrome or spinal dural abscess. I have discussed with the patient there likely diagnosis, aftercare plan, follow-up plans and my usual and customary return precautions. They verbalized understanding of this. - Vital Signs Vital signs: Temp Pulse Resp BP Pulse Ox 99.0 F 91 20 129/87 H 98 12/08/19 05:33 12/08/19 05:33 12/08/19 05:33 12/08/19 05:33 12/08/19 05:33 Discharge - Discharge Clinical Impression: Chronic musculoskeletal pain Condition: Good Disposition: HOME, SELF-CARE Additional Instructions: As we discussed you may need to have or you cannot feel your self wiping her bottom please return to the ER. an urgent MRI, but at this time there is no evidence that this needs to be done in the emergency room. If your legs become weaker Prescribing a steroid taper but if you do not tolerate it you can stop Prescriptions: Prednisone [Deltasone 10 mg Tablet] 10 mg PO ASDIR PRN #21 tablet PRN Reason: Ondansetron [Zofran Odt 4 mg Tablet] 1 - 2 tab PO Q4H PRN #15 tab.rapdis PRN Reason: For Nausea/Vomiting Referrals: [facility] [Provider Group] - Follow up as needed
--- NOTE | 2019-12-08 09:27 | EKG REPORT ---
SEVERITY:- NORMAL ECG - SINUS RHYTHM : Confirmed by: Sandeep Sorto 08-Dec-2019 09:26:46
== END 2019-12-08 06:56 | disposition home or self-care (01) ==
LOC: ER 03:56
DX: G89.29 Other chronic pain (principal); M79.18 Myalgia, other site; M54.2 Cervicalgia; M54.9 Dorsalgia, unspecified; F17.200 Nicotine dependence, unspecified, uncomplicated; E11.9 Type 2 diabetes mellitus without complications; I25.2 Old myocardial infarction
CPT/HCPCS: 93005; 93010; 99283

== ENCOUNTER 2019-12-08 07:33 | Emergency (ER) | payer BC ==
[2019-12-08 07:40] VITALS: BP 145/99
[2019-12-08] MEDS ORDERED: KETOROLAC TROMETHAMINE 60 MG/2 ML SDV IM ONE (08:29)
[2019-12-08] MEDS ORDERED: DIAZEPAM 5 MG TABLET PO ONE (08:29)
--- NOTE | 2019-12-08 08:30 | ER Document Report ---
ED General - General Chief Complaint: Neck Pain >24hrs old Stated Complaint: BACK PAIN Notes: Patient seen earlier today presents with ongoing pain in her neck. Earlier on her visit she complained mostly of neck pain and radiculopathy symptoms but noticing that her right face feels tight and cramped. This is been going on for several days. She did not previously mention this to me. She denies drooling neck stiffness but does have pain. No numbness or tingling. History of migraines not seeing neurology and says she is had a migraine for over a week. She did recently change from Flexeril to Robaxin but has not ceased use of any narcotics or benzodiazepines nor take any dopaminergic drugs. TRAVEL OUTSIDE OF THE [place] IN LAST 30 DAYS: No - Related Data Allergies/Adverse Reactions: No Known Allergies Allergy (Verified 12/08/19 04:46) Past Medical History - Social History Smoking Status: Current Every Day Smoker Frequency of alcohol use: None Drug Abuse: None Family History: Reviewed & Not Pertinent - Past Medical History Cardiac Medical History: Reports: Hx Heart Attack - "Mild [place]" cause unknown Denies: Hx Coronary Artery Disease, Hx Hypertension Pulmonary Medical History: Reports: Hx Asthma - Sees Dr. Tabares , Hx Bronchitis, Hx Pneumonia Neurological Medical History: Reports: Hx Migraine, Hx Seizures - "I have small seizures", no medications at this time . Denies: Hx Cerebrovascular Accident Endocrine Medical History: Reports: Hx Diabetes Mellitus Type 2 Renal/ Medical History: Denies: Hx Peritoneal Dialysis GI Medical History: Reports: Hx Cirrhosis, Hx Gastroesophageal Reflux Disease Musculoskeletal Medical History: Denies Hx Arthritis Past Surgical History: Reports: Hx Cholecystectomy, Hx Orthopedic Surgery - left wrist - Immunizations Hx Diphtheria, Pertussis, Tetanus Vaccination: No Review of Systems - Review of Systems Notes: REVIEW OF SYSTEMS GEN: Denies fever, chills, weight loss ENT: Denies sore throat, nasal discharge, ear pain EYES: Denies blurry vision, eye pain, discharge CV: Denies chest pain, palpitations, edema RESP: Denies cough, shortness of breath, wheezing GI: Denies abdominal pain, nausea, vomiting, diarrhea MSK: Neck pain back pain face pain SKIN: Denies rash, skin lesions LYMPH: Denies swollen glands/lymph nodes NEURO: Headache, face tightness, denies focal weakness or numbness, dizziness PSYCH: Denies depression, suicidal or homicidal ideation PHYSICAL EXAMINATION General: No acute distress, well-nourished Head: Atraumatic, normocephalic ENT: Trismus. Mouth normal, oropharynx moist, no exudates or tonsillar enlargement Eyes: Conjunctiva normal, pupils equal, lids normal Neck: No JVD, supple, no guarding CVS: Normal rate, regular rhythm, no murmurs Resp: No resp distress, equal and normal breath sounds bilaterally GI: Nondistended, soft, no tenderness to palpation, no rebound or guarding Ext: No deformities, no edema, normal range of motion in upper and lower ext Back: No CVA or midline TTP Skin: No rash, warm Lymphatic: No lymphadeopathy noted Neuro: Awake, alert. Face symmetric. GCS 15. Symmetric normal sensation, no increased tone or droop. Effort dependent weakness throughout. Physical Exam - Vital signs Vitals: Temp Pulse Resp BP Pulse Ox 99.0 F 89 18 145/99 H 100 12/08/19 07:37 12/08/19 07:37 12/08/19 07:37 12/08/19 07:37 12/08/19 07:37 Course - Re-evaluation Re-evalutation: 12/08/19 08:58 Patient presents with signs and symptoms of facial tingling and tightness but there is nothing on exam that would corroborate dystonia stroke seizure or Quinteros's palsy She was given benzodiazepine anti-inflammatory which helped her headache and face although she still has persistent neurologic symptoms she has a neurologist and pain clinic to follow-up with a stable for discharge home Insert discharge 12/08/19 15:17 - Vital Signs Vital signs: Temp Pulse Resp BP Pulse Ox 99.0 F 89 18 145/99 H 100 12/08/19 07:37 12/08/19 07:37 12/08/19 07:37 12/08/19 07:37 12/08/19 07:37 Discharge - Discharge Clinical Impression: Facial pain Condition: Good Disposition: HOME, SELF-CARE Instructions: Muscle Strain ([facility]), Warm Packs ([facility]) Additional Instructions: Please follow-up with a neurologist, primary care and pain clinic.
== END 2019-12-08 08:58 | disposition home or self-care (01) ==
LOC: ER 07:33
DX: R51 Headache (principal); M54.2 Cervicalgia; R20.2 Paresthesia of skin; F17.200 Nicotine dependence, unspecified, uncomplicated; E11.9 Type 2 diabetes mellitus without complications; Z90.49 Acquired absence of other specified parts of digestive tract
CPT/HCPCS: 99283; 96372; J1885

== ENCOUNTER 2019-12-08 23:51 | Emergency (ER) | payer BC ==
[2019-12-09] MEDS ORDERED: NORMAL SALINE 1000 ML 1,000 ML IV ONE (01:01)
[2019-12-09] MEDS ORDERED: DIPHENHYDRAMINE HCL 50 MG/ML VIAL IV ONE (01:01)
[2019-12-09] MEDS ORDERED: LORAZEPAM INJ 2 MG/1 ML VIAL IV ONE (01:01)
[2019-12-09 01:10] LABS: ABSOLUTE BASOPHILS # (AUTO) 0.1 10^3/uL (0.0-0.2); ABSOLUTE EOSINOPHILS # (AUTO) 0.2 10^3/uL (0.0-0.6); ABSOLUTE LYMPHOCYTES (AUTO) 2.5 10^3/uL (0.5-4.7); ABSOLUTE MONOCYTES (AUTO) 0.5 10^3/uL (0.1-1.4); ABSOLUTE NEUT (AUTO) 5.1 10^3/uL (1.7-8.2); BASOPHILS % (AUTO) 0.9 % (0-2); HEMATOCRIT 44.4 % (36.0-47.0); HEMOGLOBIN 15.7 g/dL (12.0-15.5); LYMPHOCYTES % (AUTO) 29.8 % (13-45); MEAN CORPUSCULAR HEMOGLOBIN 31.4 pg (27.0-33.4); MEAN CORPUSCULAR HGB CONC 35.4 g/dL (32.0-36.0); MEAN CORPUSCULAR VOLUME 89 fl (80-97); MONOCYTES % (AUTO) 5.5 % (3-13); PLATELET COUNT 219 10^3/uL (150-450); RED BLOOD COUNT 5.01 10^6/uL (3.72-5.28); RED CELL DISTRIBUTION WIDTH 12.5 % (11.5-14.0); SEGMENTED NEUTROPHILS % (AUTO) 61.8 % (42-78); TOTAL CELLS COUNTED % (AUTO) 100 %; WHITE BLOOD COUNT 8.3 10^3/uL (4.0-10.5)
--- NOTE | 2019-12-09 02:31 | RADIOLOGY REPORT (SQ) ---
CLINICAL HISTORY: cough sob COMPARISON: 11/28/2019. TECHNIQUE: XR CHEST 1 VIEW 12/09/2019 1:02 AM CDT FINDINGS: Cardiac silhouette is normal in size. Lungs are clear without consolidation, atelectasis, mass or edema. There is no pleural effusion. There is no pneumothorax. There are no acute osseous findings. IMPRESSION: Clear lungs.
--- NOTE | 2019-12-09 02:53 | ER Document Report ---
ED General - General Chief Complaint: Shortness Of Breath Stated Complaint: NAUSEA/VOMITING/SOB Primary Care Provider: JOSETTE THAYER MD [Primary Care Provider] - Follow up as needed TRAVEL OUTSIDE OF THE [place] IN LAST 30 DAYS: No - HPI Notes: 34-year-old female history of diabetes, asthma, "possible [place]" presents with proximately 1 day of tremulousness and feeling intermittently short of breath. Triage note says nausea vomiting which patient denies to me. Patient seen in ED for neck pain yesterday which she is not complaining of now. Patient on several medications for pain management which have not recently changed. Past medical history says cirrhosis but patient denies alcohol use or drug use. Also denies benzo or barbiturate use. patient endorses having a mildly productive nonbloody cough for past few days. Patient has used her albuterol inhaler a few times which has helped her shortness of breath. Patient denies fever, vomiting, abdominal pain, diarrhea/constipation, chest pain, headache, neck pain or stiffness, trauma - Related Data Allergies/Adverse Reactions: No Known Allergies Allergy (Verified 12/08/19 04:46) Past Medical History - General Information source: Patient, [facility] Records - Social History Smoking Status: Unknown if Ever Smoked Family History: Reviewed & Not Pertinent - Past Medical History Cardiac Medical History: Reports: Hx Heart Attack - "Mild [place]" cause unknown Denies: Hx Coronary Artery Disease, Hx Hypertension Pulmonary Medical History: Reports: Hx Asthma - Sees Dr. Tabares , Hx Bronchitis, Hx Pneumonia Neurological Medical History: Reports: Hx Migraine, Hx Seizures - "I have small seizures", no medications at this time . Denies: Hx Cerebrovascular Accident Endocrine Medical History: Reports: Hx Diabetes Mellitus Type 2 Renal/ Medical History: Denies: Hx Peritoneal Dialysis GI Medical History: Reports: Hx Cirrhosis, Hx Gastroesophageal Reflux Disease Musculoskeletal Medical History: Denies Hx Arthritis Past Surgical History: Reports: Hx Cholecystectomy, Hx Orthopedic Surgery - left wrist - Immunizations Hx Diphtheria, Pertussis, Tetanus Vaccination: No Review of Systems - Review of Systems Notes: REVIEW OF SYSTEMS: CONSTITUTIONAL : Denies fever, chills, or sweats. EENT: Denies recent cold/sinus symptoms, denies throat pain CARDIOVASCULAR: Denies chest pain, FIDEL RESPIRATORY: +cough, +shortness of breath. GASTROINTESTINAL: Denies abdominal pain, nausea/vomiting. GENITOURINARY: Denies difficulty urinating, painful urination. FEMALE GENITOURINARY: Denies abnormal vaginal bleeding, vaginal discharge. MUSCULOSKELETAL: Denies neck pain, back pain. SKIN: Denies rash or skin lesions. HEMATOLOGIC : Denies easy bruising or bleeding. LYMPHATIC: Denies swollen, enlarged glands. NEUROLOGICAL: Denies headache, denies change in gait. PSYCHIATRIC: Denies anxiety or stress or depression. Physical Exam - Vital signs Vitals: Temp Pulse Resp BP Pulse Ox 99.2 F 121 H 22 H 150/102 H 100 12/08/19 23:57 12/08/19 23:57 12/08/19 23:57 12/08/19 23:57 12/08/19 23:57 - Notes Notes: PHYSICAL EXAMINATION: GENERAL: Patient uncomfortable appearing with chest jerking repetitive movement but in no acute distress HEAD: Atraumatic, normocephalic. EYES: Pupils equal round and appropriate constriction, sclera anicteric, conjunctiva are normal. ENT: nares patent, dry mucous membranes. NECK: Normal range of motion, supple without lymphadenopathy LUNGS: Breath sounds clear to auscultation bilaterally and equal. No wheezes rales or rhonchi. Normal respiratory rate and effort. HEART: Mildly tachycardic, regular rhythm, no murmurs rubs or gallops ABDOMEN: Soft, nontender, no guarding, no masses, no CVAT EXTREMITIES: Normal range of motion, no pitting or edema. No cyanosis. NEUROLOGICAL: Awake, alert, conversing appropriately, moves all extremities spontaneously. Jerking chest movement but no tremor with outstretched hands, no tongue fasciculations PSYCH: Normal mood, normal affect. SKIN: Warm, Dry, normal turgor, no rashes or lesions noted. Course - Re-evaluation Re-evalutation: 12/09/19 03:57 Shortness of breath with mild tachycardia, patient is low risk for PE so ruled out with d-dimer which was negative. Patient shows no objective signs of being dyspneic and has completely normal respiratory exam. Recommend that patient take albuterol standing every 4 hours for the next several days until symptoms improve. Symptoms may be secondary to COVID, no signs of this on chest x-ray and patient not hypoxic. Instructed patient to quarantine until colored test results. Jerking movement may have been secondary to dystonic reaction from numerous neuro modulatory drugs that patient takes, resolved after Benadryl and Ativan. No signs of alcohol/benzo/barbiturate withdrawal. Not consistent with seizure. Patient feels improved after fluids and meds, instructed patient to follow-up with primary doctor within the next 3 days. Gave patient extensive return to ED precautions which she demonstrated understanding of. Gave patient copy of all lab results to bring to PCP follow-up appointment. - Vital Signs Vital signs: Temp Pulse Resp BP Pulse Ox 98.3 F 87 16 117/82 99 12/09/19 04:20 12/09/19 03:48 12/09/19 03:48 12/09/19 03:48 12/09/19 03:48 - Laboratory Result Diagrams: 12/09/19 00:24 12/09/19 02:55 Laboratory results interpreted by me: 12/09/19 12/09/19 00:24 02:55 Hgb 15.7 H Sodium 135.5 L Chloride 110 H Anion Gap 2 L Total Protein 5.9 L - EKG Interpretation by Me Additional EKG results interpreted by me: 12/09/19 03:00 Heart rate 83, normal sinus rhythm, no significant ST elevations or depressions, no significant T wave abnormalities Discharge - Discharge Clinical Impression: Episode of shaking, Dehydration Condition: Stable Disposition: HOME, SELF-CARE Additional Instructions: Dehydration Dehydration can result from vomiting or diarrhea, fever, or decreased intake of fluids. For the next 24 hours, drink lots of clear fluids. In mild cases, this can be soda pop or sports drinks. For more severe dehydration, the doctor may recommend special fluids such as Pedialyte or Lytren. Try to get three liters (3 quarts) of fluid per day. If vomiting occurs, continue to drink the fluids frequently (every 15 to 20 minutes), but in small amounts (one or two ounces). Depending on the type of dehydration, the doctor may prescribe antinausea medicine or potassium replacements. Call the doctor or return for re-examination if you become progressively weak, vomit repeatedly, or have other new symptoms. Patient was provided with discharge information including: As a person under investigation for Covid 19, the [facility] of Health and Human Services, division of public health advises you to adhere to the following guidance until your test results are reported to you. If your test result is positive, you will receive additional information from your provider and your local health department at that time. Remain at home until you are cleared by the health provider or public health authorities. Keep a log of visitors to your home, notify any visitors to your home of your isolation status. If you plan to move to a new address or leave the county, notify the local [facility] department in your County. Call your doctor or seek care if you have an urgent medical need. Before seeking medical care, call ahead to get instructions from the provider before arriving at the medical office clinic or hospital. Notify them that you are being tested for the virus that causes Covid 19 so that arrangements can be made, as necessary, to prevent transmission to others in the healthcare setting. Next, notify the local health department in your county. If a medical emergency arises and you need to call 911, inform the first responders that you are being tested for the virus that causes Covid 19. Next, notify the [facility] department in your county. Follow-up with your primary doctor within 3 days. Return to the ED immediately if you have worsening shortness of breath, chest pain, dizziness, fainting, seizure, confusion, weakness or numbness, neck pain or stiffness, or any other worsening or alarming symptoms. Prescriptions: Diphenhydramine HCl [Benadryl] 25 mg PO Q6HP PRN #20 capsule PRN Reason: Referrals: JOSETTE THAYER MD [Primary Care Provider] - Follow up as needed
[2019-12-09 03:27] LABS: ALBUMIN 3.5 g/dL (3.5-5.0); ALKALINE PHOSPHATASE 41 U/L (38-126); ASPARTATE AMINO TRANSFERASE 21 U/L (14-36); BILIRUBIN,TOTAL 0.5 mg/dL (0.2-1.3); BLOOD UREA NITROGEN 9 mg/dL (7-20); CALCIUM 8.5 mg/dL (8.4-10.2); CARBON DIOXIDE 24 mmol/L (22-30); GLUCOSE 93 mg/dL (75-110); POTASSIUM 3.9 mmol/L (3.6-5.0); TOTAL PROTEIN 5.9 g/dL (6.3-8.2)
[2019-12-09 03:32] LABS: CHLORIDE 110 mmol/L (98-107)
[2019-12-09 03:36] LABS: ANION GAP 2 (5-19)
[2019-12-09 03:51] VITALS: BP 117/82
[2019-12-09] MEDS ORDERED: LORAZEPAM 1 MG TABLET PO ONE (04:11)
--- NOTE | 2019-12-10 10:26 | EKG REPORT ---
SEVERITY:- NORMAL ECG - SINUS RHYTHM : Confirmed by: Sandeep Sorto 10-Dec-2019 10:24:48
== END 2019-12-09 04:32 | disposition home or self-care (01) ==
LOC: ER 23:51
DX: E86.0 Dehydration (principal); R06.02 Shortness of breath; R11.2 Nausea with vomiting, unspecified; R00.0 Tachycardia, unspecified; E11.9 Type 2 diabetes mellitus without complications; Z20.828 Contact with and (suspected) exposure to other viral communicable diseases
CPT/HCPCS: 93005 ×2; 99283; 99285; 96372; 96361; 96374; 96375; 36415; 83735; 84100; 84443; 85025; 87635; 80053; 84484; 85379; 71045; 93010 ×2; J1200; J1885; J2060; J7030; C9803

== ENCOUNTER 2019-12-09 23:49 | Emergency (ER) | payer BC ==
[2019-12-10 01:19] VITALS: BP 120/88
--- NOTE | 2019-12-10 02:09 | ER Document Report ---
ED General - General Chief Complaint: Tremor Stated Complaint: BODY PAIN/SPASMS/NAUSEA/FEVER Time Seen by Provider: 12/10/19 01:31 Primary Care Provider: LESLIE CHRISTIANSEN MD [COMMUNITY BASED STAFF] - 12/12/19 Notes: Patient is a 34-year-old female that comes emergency department for chief complaint of shaking tremors in her body. She states that she was seen here yesterday, she states that she was medicated with "something through the IV that made it stop". She states that she was prescribed Benadryl but she did not take it. She states that she "knows the Benadryl will not do anything, it was the other medication". Patient reports that she has chronic neck and lower back pain, however she denies any other symptoms to me including fever, shortness of breath, chest pain, nausea, vomiting, headache, new neck symptoms, new trauma. Patient states that she has chronic back pain ever since she had childbirth but she did not have any specific trauma, she states she is still in pain management. She denies recreational drugs, alcohol, smoking. She states that she has a referral to a back specialist because of her ongoing symptoms which have not been diagnosed, this is within the next week. TRAVEL OUTSIDE OF THE [place] IN LAST 30 DAYS: No - Related Data Allergies/Adverse Reactions: No Known Allergies Allergy (Verified 12/08/19 04:46) Past Medical History - General Information source: Patient - Social History Smoking Status: Current Every Day Smoker Frequency of alcohol use: None Drug Abuse: None Lives with: Family Family History: Reviewed & Not Pertinent Patient has homicidal ideation: No - Past Medical History Cardiac Medical History: Reports: Hx Heart Attack - "Mild [place]" cause unknown Denies: Hx Coronary Artery Disease, Hx Hypertension Pulmonary Medical History: Reports: Hx Asthma - Sees Dr. Tabares , Hx Bronchitis, Hx Pneumonia Neurological Medical History: Reports: Hx Migraine, Hx Seizures - "I have small seizures", no medications at this time . Denies: Hx Cerebrovascular Accident Endocrine Medical History: Reports: Hx Diabetes Mellitus Type 2 Renal/ Medical History: Denies: Hx Peritoneal Dialysis GI Medical History: Reports: Hx Cirrhosis, Hx Gastroesophageal Reflux Disease Musculoskeletal Medical History: Denies Hx Arthritis Past Surgical History: Reports: Hx Cholecystectomy, Hx Orthopedic Surgery - left wrist - Immunizations Hx Diphtheria, Pertussis, Tetanus Vaccination: No Review of Systems - Review of Systems Constitutional: No symptoms reported EENT: No symptoms reported Cardiovascular: No symptoms reported Respiratory: No symptoms reported Gastrointestinal: No symptoms reported Genitourinary: No symptoms reported Female Genitourinary: No symptoms reported Musculoskeletal: See HPI Skin: No symptoms reported Hematologic/Lymphatic: No symptoms reported Neurological/Psychological: See HPI Physical Exam - Vital signs Vitals: Temp Pulse Resp BP Pulse Ox 98.6 F 106 H 18 169/104 H 97 12/09/19 23:59 12/09/19 23:59 12/09/19 23:59 12/09/19 23:59 12/09/19 23:59 - Notes Notes: GENERAL: Alert, interacts well. No acute distress. Patient has a continuous shaking motion of her chest which does not include her arms. This is not severe, there is no severe jerking, patient does not appear to be in any pain. HEAD: Normocephalic, atraumatic. EYES: Pupils equal, round, and reactive to light. Extraocular movements intact. ENT: Oral mucosa moist, tongue midline. Oropharynx unremarkable. Airway patent. Nares patent, sinuses non-tender, ear canals unremarkable, TM's intact. NECK: Full range of motion. Supple. Trachea midline. No lymphadenopathy. LUNGS: Clear to auscultation bilaterally, no wheezes, rales, or rhonchi. No respiratory distress. Non-tender chest wall. HEART: Regular rate and rhythm. No murmur ABDOMEN: Soft, non-tender. Non-distended. EXTREMITIES: Moves all 4 extremities spontaneously. No edema, normal radial and dorsalis pedis pulses bilaterally. No cyanosis. BACK: no cervical, thoracic, lumbar midline tenderness. No saddle anesthesia, normal distal neurovascular exam. Moves all extremities in full range of motion. NEUROLOGICAL: Alert and oriented x3. Normal speech. Cranial nerves II through XII grossly intact. Strength 5/5 in all extremities. PSYCH: Slightly flat affect but good eye contact SKIN: Warm, dry, normal turgor. No rashes or lesions noted. Course - Re-evaluation Re-evalutation: On my exam patient has what appears to be shaking mainly of her chest, patient does not appear to be in distress while doing so, patient has no neurologic deficits. She denies headache. She has no concerning red flag symptoms reported. She has no fever. Her physical examination is otherwise unremarkable. I did notice that when patient was having the IV placed that she stopped having the tremors/shaking. Symptoms also resolved after Ativan. However patient started doing the shaking again when I reevaluated her. When checking on the patient in between episodes she did not appear to have any shaking. I discussed this with patient, I pointed out how she only had intermittent shaking when we are evaluating her, patient denied this. I further discussed with patient that patient has not been evaluated 9 times in 9 days at this emergency department for various symptoms and no emergent pathology has been determined, she has been discharged each time. In addition to this patient has no current complaints, vital signs unremarkable, work-up is generally nonspecific other than mild hypokalemia which was supplemented. She will increase this in her diet after I discussed this. Urine does show some dehydration and she was given some IV fluids. I asked the patient had any psychiatric abnormalities, concerns about safety at home, trouble with her relationships, or other abnormality. Patient states that her marriage is hard but she feels safe at home, she is not suicidal or homicidal, she declines mental health evaluation when I offered it. Patient did not become angry when I discussed this. I discussed with the patient that I am not certain what her symptoms are from although I do not think that there is an emergent abnormality at this time, symptoms do not suggest dystonia or neurological deficit. She states that she would like to have a work-up because her sister have lupus, I did discuss how I cannot entirely rule out symptoms from autoimmune nature or even neurological nature. She states she needs a primary care because she only follows with pain management at this time. Patient discussing the medication that worked here but I cannot give her any additional sedating medications because she is already on Dilaudid, sedatives, and Lyrica. Patient does state understanding. Patient has no other requests or complaints, states she is ready for discharge. Patient well-appearing and stable at time of discharge. - Vital Signs Vital signs: Temp Pulse Resp BP Pulse Ox 98.6 F 79 15 120/88 H 97 12/10/19 01:18 12/10/19 06:44 12/10/19 06:44 12/10/19 01:18 12/10/19 06:44 - Laboratory Result Diagrams: 12/10/19 02:39 12/10/19 02:39 Laboratory results interpreted by me: 12/10/19 12/10/19 02:39 06:32 Sodium 136.8 L Potassium 3.3 L Chloride 110 H Anion Gap 3 L AST 38 H Urine Ketones 20 H Urine Bilirubin MODERATE H Urine Urobilinogen 2.0 H Discharge - Discharge Clinical Impression: Episode of shaking, Jerking, Chronic musculoskeletal pain Condition: Stable Disposition: HOME, SELF-CARE Additional Instructions: Your evaluation shows slightly low potassium, but no concerning findings otherwise. Follow-up with the primary care provider referral, see listed referral, call Thursday for your follow-up. Consider as we discussed rheumatology work-up and neurology referral from there. Return to the ED immediately if you have worsening shortness of breath, chest pain, dizziness, fainting, seizure, confusion, weakness or numbness, neck pain or stiffness, or any other worsening or alarming symptoms. Referrals: LESLIE CHRISTIANSEN MD [COMMUNITY BASED STAFF] - 12/12/19
[2019-12-10 02:50] LABS: ABSOLUTE BASOPHILS # (AUTO) 0.1 10^3/uL (0.0-0.2); ABSOLUTE EOSINOPHILS # (AUTO) 0.1 10^3/uL (0.0-0.6); ABSOLUTE LYMPHOCYTES (AUTO) 2.6 10^3/uL (0.5-4.7); ABSOLUTE MONOCYTES (AUTO) 0.5 10^3/uL (0.1-1.4); ABSOLUTE NEUT (AUTO) 5.9 10^3/uL (1.7-8.2); BASOPHILS % (AUTO) 1.3 % (0-2); EOSINOPHILS % (AUTO) 1.6 % (0-6); HEMATOCRIT 39.7 % (36.0-47.0); LYMPHOCYTES % (AUTO) 27.8 % (13-45); MEAN CORPUSCULAR HEMOGLOBIN 31.7 pg (27.0-33.4); MEAN CORPUSCULAR HGB CONC 35.3 g/dL (32.0-36.0); MEAN CORPUSCULAR VOLUME 90 fl (80-97); MONOCYTES % (AUTO) 5.2 % (3-13); PLATELET COUNT 212 10^3/uL (150-450); RED BLOOD COUNT 4.43 10^6/uL (3.72-5.28); RED CELL DISTRIBUTION WIDTH 12.2 % (11.5-14.0); SEGMENTED NEUTROPHILS % (AUTO) 64.1 % (42-78); TOTAL CELLS COUNTED % (AUTO) 100 %; WHITE BLOOD COUNT 9.2 10^3/uL (4.0-10.5)
[2019-12-10] MEDS ORDERED: LORAZEPAM INJ 2 MG/1 ML VIAL IV ONE (02:57)
[2019-12-10 03:06] LABS: ALBUMIN 3.8 g/dL (3.5-5.0); ALKALINE PHOSPHATASE 42 U/L (38-126); ASPARTATE AMINO TRANSFERASE 38 U/L (14-36); BILIRUBIN,DIRECT 0.1 mg/dL (0.0-0.4); BILIRUBIN,TOTAL 0.5 mg/dL (0.2-1.3); BLOOD UREA NITROGEN 13 mg/dL (7-20); CREATINE KINASE 41 U/L (30-135); GLUCOSE 99 mg/dL (75-110); POTASSIUM 3.3 mmol/L (3.6-5.0); TOTAL PROTEIN 6.6 g/dL (6.3-8.2)
[2019-12-10 03:11] LABS: CARBON DIOXIDE 24 mmol/L (22-30); CHLORIDE 110 mmol/L (98-107)
[2019-12-10 03:18] LABS: ANION GAP 3 (5-19)
[2019-12-10] MEDS ORDERED: POTASSIUM CHLORIDE 10 MEQ TABLET.ER PO ONE (04:01)
[2019-12-10] MEDS ORDERED: NORMAL SALINE 1000 ML 1,000 ML IV ONE (04:36)
[2019-12-10] MEDS ORDERED: LORAZEPAM 1 MG TABLET PO ONE (06:24)
[2019-12-10 06:57] LABS: APPEARANCE,URINE SLIGHTLY-CLOUDY; BILIRUBIN,URINE MODERATE (NEGATIVE); COLOR,URINE YELLOW; GLUCOSE, URINE NEGATIVE (NEGATIVE); KETONES,URINE 20 mg/dL (NEGATIVE); LEUKOCYTE ESTERASE,URINE NEGATIVE (NEGATIVE); NITRITE,URINE NEGATIVE (NEGATIVE); PROTEIN,URINE NEGATIVE (NEGATIVE); URINE SPECIFIC GRAVITY 1.025
== END 2019-12-10 06:56 | disposition home or self-care (01) ==
LOC: ER 23:49
DX: R25.1 Tremor, unspecified (principal); R11.0 Nausea; R50.9 Fever, unspecified; G89.29 Other chronic pain; M79.10 Myalgia, unspecified site; F17.200 Nicotine dependence, unspecified, uncomplicated; E11.9 Type 2 diabetes mellitus without complications; I25.2 Old myocardial infarction
CPT/HCPCS: 99283; 96361; 96374; 36415; 82550; 83735; 84703; 85025; 80053; 81001; J2060; J7030

== ENCOUNTER 2019-12-11 21:07 | Emergency (ER) | payer BC ==
[2019-12-11 23:26] LABS: ABSOLUTE BASOPHILS # (AUTO) 0.1 10^3/uL (0.0-0.2); ABSOLUTE EOSINOPHILS # (AUTO) 0.2 10^3/uL (0.0-0.6); ABSOLUTE LYMPHOCYTES (AUTO) 2.6 10^3/uL (0.5-4.7); ABSOLUTE MONOCYTES (AUTO) 0.4 10^3/uL (0.1-1.4); ABSOLUTE NEUT (AUTO) 5.4 10^3/uL (1.7-8.2); BASOPHILS % (AUTO) 0.8 % (0-2); EOSINOPHILS % (AUTO) 2.3 % (0-6); HEMATOCRIT 44.4 % (36.0-47.0); HEMOGLOBIN 15.3 g/dL (12.0-15.5); LYMPHOCYTES % (AUTO) 29.8 % (13-45); MEAN CORPUSCULAR HGB CONC 34.4 g/dL (32.0-36.0); MEAN CORPUSCULAR VOLUME 90 fl (80-97); MONOCYTES % (AUTO) 4.7 % (3-13); PLATELET COUNT 230 10^3/uL (150-450); RED BLOOD COUNT 4.93 10^6/uL (3.72-5.28); RED CELL DISTRIBUTION WIDTH 12.6 % (11.5-14.0); SEGMENTED NEUTROPHILS % (AUTO) 62.4 % (42-78); TOTAL CELLS COUNTED % (AUTO) 100 %; WHITE BLOOD COUNT 8.7 10^3/uL (4.0-10.5)
[2019-12-11 23:47] LABS: ALBUMIN 4.3 g/dL (3.5-5.0); ALKALINE PHOSPHATASE 56 U/L (38-126); ANION GAP 5 (5-19); ASPARTATE AMINO TRANSFERASE 43 U/L (14-36); BILIRUBIN,DIRECT 0.1 mg/dL (0.0-0.4); BILIRUBIN,TOTAL 0.3 mg/dL (0.2-1.3); BLOOD UREA NITROGEN 9 mg/dL (7-20); CALCIUM 9.2 mg/dL (8.4-10.2); CARBON DIOXIDE 25 mmol/L (22-30); CHLORIDE 108 mmol/L (98-107); GLUCOSE 111 mg/dL (75-110); PHOSPHORUS 3.3 mg/dL (2.5-4.5); POTASSIUM 3.7 mmol/L (3.6-5.0)
--- NOTE | 2019-12-12 00:54 | ER Document Report ---
ED General - General TRAVEL OUTSIDE OF THE [place]. IN LAST 30 DAYS: No <ARCINIEGALISA - Last Filed: 12/12/19 02:19> <NADINEREDDY J - Last Filed: 12/12/19 10:43> - General Chief Complaint: Back Pain Stated Complaint: BACK PAIN, NECK PAIN, NO BOWEL MOVEMENT Time Seen by Provider: 12/11/19 21:33 Primary Care Provider: JOSETTE THAYER MD [Primary Care Provider] - Follow up as needed - [facility] Notes: 34-year-old female history of radiculopathy, chronic neck and back pain presents with approximately 1 week of worsening back and neck pain. Patient seen approximately 9 times in the last week and has not consistently complained of neck or back pain. Patient says that now she is unable to hold her bowel movements and that she has been urinating herself. Patient still able to ambulate. Denies any focal numbness or weakness but says she feels weak all over especially in her legs. Patient denies any dysuria, frequency, urgency, flank pain, IV drug use, vomiting, headache, change in vision/speech/gait, saddle anesthesia, urinary retention (LISA ARCINIEGA) - Related Data Allergies/Adverse Reactions: No Known Allergies Allergy (Verified 12/08/19 04:46) Past Medical History - General Information source: Patient, [facility] Records - Social History Smoking Status: Current Every Day Smoker Frequency of alcohol use: None Family History: Reviewed & Not Pertinent Patient has homicidal ideation: No - Past Medical History Cardiac Medical History: Reports: Hx Heart Attack - "Mild [place]" cause unknown Denies: Hx Coronary Artery Disease, Hx Hypertension Pulmonary Medical History: Reports: Hx Asthma - Sees Dr. Tabares , Hx Bronchitis, Hx Pneumonia Neurological Medical History: Reports: Hx Migraine, Hx Seizures - "I have small seizures", no medications at this time . Denies: Hx Cerebrovascular Accident Endocrine Medical History: Reports: Hx Diabetes Mellitus Type 2 Renal/ Medical History: Denies: Hx Peritoneal Dialysis GI Medical History: Reports: Hx Cirrhosis, Hx Gastroesophageal Reflux Disease Musculoskeletal Medical History: Denies Hx Arthritis Past Surgical History: Reports: Hx Cholecystectomy, Hx Orthopedic Surgery - left wrist - Immunizations Hx Diphtheria, Pertussis, Tetanus Vaccination: No <LISA ARCINIEGA - Last Filed: 12/12/19 02:19> Review of Systems <LISA ARCINIEGA - Last Filed: 12/12/19 02:19> - Review of Systems Notes: REVIEW OF SYSTEMS: CONSTITUTIONAL : Denies fever, chills, or sweats. EENT: Denies recent cold/sinus symptoms, denies throat pain CARDIOVASCULAR: Denies chest pain, FIDEL RESPIRATORY: Denies cough, denies shortness of breath. GASTROINTESTINAL: Denies abdominal pain, nausea/vomiting. GENITOURINARY: Denies hematuria, painful urination. FEMALE GENITOURINARY: Denies abnormal vaginal bleeding, vaginal discharge. MUSCULOSKELETAL: +neck pain, +back pain SKIN: Denies rash or skin lesions. HEMATOLOGIC : Denies easy bruising or bleeding. LYMPHATIC: Denies swollen, enlarged glands. NEUROLOGICAL: Denies headache, denies change in gait. PSYCHIATRIC: Denies anxiety or stress or depression. (LISA ARCINIEGA) Physical Exam <LISA ARCINIEGA - Last Filed: 12/12/19 02:19> - Vital signs Vitals: Temp Pulse Resp BP Pulse Ox 99.2 F 89 18 133/87 H 98 12/11/19 21:22 12/11/19 21:22 12/11/19 21:22 12/11/19 21:22 12/11/19 21:22 - Notes Notes: PHYSICAL EXAMINATION: GENERAL: Well-appearing, well-nourished and in no acute distress. HEAD: Atraumatic, normocephalic. EYES: Pupils equal round and appropriate constriction, sclera anicteric, conjunctiva are normal. ENT: nares patent, moist mucous membranes. NECK: Normal range of motion, supple without lymphadenopathy LUNGS: Breath sounds clear to auscultation bilaterally and equal. No wheezes rales or rhonchi. HEART: Regular rate and rhythm without murmurs ABDOMEN: Soft, nontender, no guarding, no masses, no CVAT EXTREMITIES: Normal range of motion, no pitting or edema. No cyanosis. BACK: Patient screaming from pain before my fingers touch her back to palpate it, unable to get reliable exam or localize where her back pain is, patient says pain is up the entire midline of spine NEUROLOGICAL: Awake, alert, conversing appropriately, moves all extremities spontaneously. Bladder completely collapsed when I tried to obtain a postvoid residual volume. Rectal tone decreased but present. Bilateral lower extremity strength 5 out of 5, appears to have normal sensation as patient reacts every time I lightly touch lower extremities but says that she does not have sensation, patient able to ambulate with a steady narrow-base gait to the bathroom and back without assistance PSYCH: Normal mood, normal affect. SKIN: Warm, Dry, normal turgor, no rashes or lesions noted. (LISA ARCINIEGA) Course - Laboratory Result Diagrams: 12/11/19 23:15 12/11/19 23:15 <LISA ARCINIEGA - Last Filed: 12/12/19 02:19> - Laboratory Result Diagrams: 12/11/19 23:15 12/11/19 23:15 - Diagnostic Test Radiology reviewed: Image reviewed, Reports reviewed <REDDY MCCOY - Last Filed: 12/12/19 10:43> - Re-evaluation Re-evalutation: 12/12/19 00:57 Patient complaining of urinary bowel symptoms now with back pain which he is unable to localize, patient has somewhat decreased rectal tone although this is nonspecific. No urinary retention. Will hold patient in ED for spine MRI at a.m. to rule out cord compression/cauda equina, but low pretest probability. I also obtained electrolytes and CK as this can also cause weakness. Patient remains under evaluation for COVID-19, test was sent during one of patient's prior recent visits. Patient symptoms could represent other neurologic diagnosis but no signs of Guillain-Elmore syndrome, possibly multiple sclerosis but given no objective weakness or numbness and patient ambulating well with this would be an outpatient diagnosis to be followed up by neurologist. 12/12/19 01:53 Patient now complaining of "migraine "she says that this pain is like her usual headaches that she has had many times in her life and had repeated imaging and never had any findings. No other new symptoms. No neck pain or stiffness, no vomiting, no change in vision or speech, no change in her exam, cranial nerves II through XII normal bilaterally, will order patient migraine medications pending imaging in a.m. 12/12/19 02:19 Patient turned over to Dr. Guevara pending MRI. (LISA ARCINIEGA) 12/12/19 10:33 Patient complains of bilateral paracervical muscle spasm and tenderness. Also states that she has constipation with leakage of liquid stool. MRI scan does not really support that there is any neurological anatomy issue that would explain patient's constipation or her paracervical neck spasm. Patient has mul tilevel degenerative disease throughout her spine. (REDDY MCCOY) - Vital Signs Vital signs: Temp Pulse Resp BP Pulse Ox 98.2 F 61 18 135/91 H 96 12/12/19 03:48 12/12/19 03:48 12/12/19 03:48 12/12/19 03:48 12/12/19 03:48 - Laboratory Laboratory results interpreted by wv: 12/11/19 23:15 Chloride 108 H Glucose 111 H AST 43 H ALT 66 H - Diagnostic Test Radiology results interpreted by wv: 12/12/19 10:35 MRI scan cervical spine shows C5-6 central disc bulging with foraminal stenosis spinal canal stenosis. There is no spinal cord signal and no syrinx 12/12/19 10:37 MRI scan thoracic spine shows no acute degenerative disc disease noted. 12/12/19 10:38 MRI scan lumbar spine shows no acute degenerative disc disease or osseous abnormality. (REDDY MCCOY) Discharge <LISA ARCINIEGA - Last Filed: 12/12/19 02:19> <REDDY MCCOY - Last Filed: 12/12/19 10:43> - Discharge Clinical Impression: Trapezius muscle spasm, Constipation by delayed colonic transit Condition: Stable Disposition: HOME, SELF-CARE Instructions: Muscle Strain (OM) Additional Instructions: Constipation Constipation is a common problem. It is especially likely as you get older. Constipation is a common cause of abdominal pain, but sometimes causes no symptoms at all. Causes of constipation include certain medications, dehydration, diets, inactivity, and low-fiber intake. Rarely, it can be a symptom of underlying disease. The physician has evaluated you for this. Avoid constipation by eating a diet high in fiber, fruits, and vegetables. Drink plenty of liquids. Get regular exercise. If possible, avoid constipating medicines like narcotic pain medication. Some vitamin tablets can cause constipation. Stool softeners may be needed for difficult cases. An excellent stool softener is Konsyl which is available at [facility], and [employer] drug store. Just add a teaspoon to a glass of pineapple or orange juice daily or twice a day if needed. Laxatives are useful for occasional constipation. You should use them only when necessary. Too-frequent use can make your bowels dependent on them. Some over the counter laxatives available without prescription are: Milk of Magnesia, 1-2 tablespoons twice a day Dulcolax, 5 mg pill or 10 mg suppository. Citrate of Magnesia, 4-5 ounces a day for a day or two For acute constipation, Fleet's Enemas and Dulcolax suppositories are helpful. Chronic, fci use of laxatives or enemas is not a good idea. Your bowel may become dependant on them. You do not need to have a bowel movement every day. Many people do fine with a bowel movement every three or four days. You should call your doctor or return for re-evaluation if you pass blood in the stool, or if you develop fever or increasing abdominal pain. Referrals: JOSETTE THAYER MD [Primary Care Provider] - Follow up as needed
[2019-12-12] MEDS ORDERED: PROCHLORPERAZINE EDISYLATE INJ 10 MG/2 ML VIAL IV ONE ×2 (01:55→04:30)
[2019-12-12] MEDS ORDERED: DIPHENHYDRAMINE HCL 25 MG CAPSULE PO ONE ×2 (01:55→04:30)
[2019-12-12] MEDS ORDERED: NORMAL SALINE 1000 ML 1,000 ML IV ONE ×2 (01:55→04:30)
--- NOTE | 2019-12-12 09:51 | RADIOLOGY REPORT (SQ) ---
EXAM DESCRIPTION: MRI LUMBAR SPINE WITHOUT IMAGES COMPLETED DATE/TIME: 12/12/2019 9:38 am REASON FOR STUDY: back pain urinary/bowel symptoms COMPARISON: 05/27/2016 and 10/04/2014 TECHNIQUE: Sagittal and Axial imaging includes T1, T2, STIR and gradient echo sequences. Coronal T2/ HASTE imaging. LIMITATIONS: None. FINDINGS: VISUALIZED UPPER ABDOMEN: Limited evaluation. No acute or suspicious findings suggested. SEGMENTATION: No transitional anatomy. The lowest well-developed disc space is labeled L5-S1. ALIGNMENT: Anatomic. VERTEBRAE: Intact. BONE MARROW: Normal. No marrow replacement or reactive changes. DISC SIGNAL: Normal. No significant abnormal signal or loss of height. POSTERIOR ELEMENTS: Generally intact. No pars defect evident. HARDWARE: None in the spine. CORD AND CONUS: Normal in size and signal intensity. Conus at the appropriate level. SOFT TISSUES: No aortic aneurysm seen. No bulky retroperitoneal adenopathy or mass. No paraspinal mas s or fluid. L1-L2: No significant spinal stenosis or exit foraminal stenosis. L2-L3: No significant spinal stenosis or exit foraminal stenosis. L3-L4: No significant spinal stenosis or exit foraminal stenosis. L4-L5: No significant spinal stenosis or exit foraminal stenosis. L5-S1: No significant spinal stenosis or exit foraminal stenosis. LOWER THORACIC: Incompletely imaged. No stenosis seen. SACRUM: Visualized upper sacrum intact. OTHER: No other significant findings. IMPRESSION: No evidence of acute osseous injury or significant degenerative change. Normal MR appea luis enrique of the lumbar spine. TECHNICAL DOCUMENTATION: JOB ID: [id number] 2010 [employer]- All Rights Reserved Reading location - IP/workstation name: [email or web address]
--- NOTE | 2019-12-12 09:59 | RADIOLOGY REPORT (SQ) ---
EXAM DESCRIPTION: MRI THORACIC SPINE WITHOUT IMAGES COMPLETED DATE/TIME: 12/12/2019 9:38 am REASON FOR STUDY: back pain urinary/bowel symptoms COMPARISON: None. TECHNIQUE: Sagittal and Axial imaging includes T1, T2, STIR and gradient echo sequences. LIMITATIONS: None. FINDINGS: LOCALIZER: No worrisome findings. ALIGNMENT: Normal. VERTEBRAE: Intact. BONE MARROW: Normal. No marrow replacement or reactive changes. Incidental note is made of a small S chmorl node involving the T10 inferior endplate. HARDWARE: None in the spine. CORD: Normal in size and signal intensity. SOFT TISSUES: No soft tissue masses. THORACIC DISCS T1-T12: No significant spinal stenosis or exit foraminal stenosis. Mild disc desiccat ion and loss of height is seen at the T8-9 level. LOWER CERVICAL: Incompletely imaged. No significant spinal stenosis or exit foraminal stenosis. UPPER LUMBAR: Incompletely imaged. No significant spinal stenosis or exit foraminal stenosis. OTHER: No other significant finding. IMPRESSION: No evidence of acute osseous injury or significant degenerative change. TECHNICAL DOCUMENTATION: JOB ID: [id number] 2010 [employer]- All Rights Reserved Reading location - IP/workstation name: [email or web address]
--- NOTE | 2019-12-12 10:08 | RADIOLOGY REPORT (SQ) ---
EXAM DESCRIPTION: MRI CERVICAL SPINE WITHOUT IMAGES COMPLETED DATE/TIME: 12/12/2019 9:38 am REASON FOR STUDY: back pain urinary/bowel symptoms COMPARISON: C-spine radiographs 11/17/2019 TECHNIQUE: Sagittal and Axial imaging includes T1, T2, STIR and gradient echo sequences. LIMITATIONS: None. FINDINGS: ALIGNMENT: Reversal of the normal lordotic curvature centered at the C5/6 level. VERTEBRAE: Intact. BONE MARROW: Normal. No marrow replacement or reactive changes. DISCS: Mild loss of intervertebral disc height is seen at C5/6 level. Remaining intervertebral disc heights appear to be largely preserved. HARDWARE: None in the spine. CORD AND BASE OF BRAIN: Normal in size and signal intensity. SOFT TISSUES: No soft tissue masses. C1-C2: No significant spinal stenosis. C2-C3: No significant spinal stenosis or exit foraminal stenosis. C3-C4: Trace disc osteophyte complex without significant central canal or neural foraminal stenosis. C4-C5: No significant spinal stenosis or exit foraminal stenosis. C5-C6: Central posterior disc extrusion contours the ventral cord, displacing it posteriorly ; a thin cleft of CSF signal is preserved posterior to the cord at this level. No syrinx. No significant lopez bligamentous migration. Mild left, moderate right neural foraminal narrowing. C6-C7: Trace disc osteophyte complex without significant central canal or neural foraminal stenosis. C7-T1: No significant spinal stenosis or exit foraminal stenosis. UPPER THORACIC: Incompletely imaged. No significant spinal stenosis or exit foraminal stenosis. OTHER: No other significant finding. IMPRESSION: C5/6 central posterior disc extrusion resulting in both central canal and neural foramin al stenosis as detailed above. No syrinx or other cord signal abnormality. TECHNICAL DOCUMENTATION: JOB ID: [id number] [employer]- All Rights Reserved Reading location - IP/workstation name: [email or web address]
[2019-12-12] MEDS ORDERED: DIAZEPAM INJ 10 MG/2 ML DISP.SYRIN IV ONE (10:39)
[2019-12-12 11:29] VITALS: BP 142/90
== END 2019-12-12 11:29 | disposition home or self-care (01) ==
LOC: ER 21:07
DX: K59.01 Slow transit constipation (principal); M62.830 Muscle spasm of back; M54.2 Cervicalgia; F17.200 Nicotine dependence, unspecified, uncomplicated; E11.9 Type 2 diabetes mellitus without complications; I25.2 Old myocardial infarction
CPT/HCPCS: 99284; 96361; 96374; 96375; 36415; 83735; 84100; 84443; 84703; 85025; 80053; 72141; 72146; 72148; J3360; J0780; J7030

== ENCOUNTER 2019-12-21 00:06 | Emergency (ER) | payer BC ==
--- NOTE | 2019-12-21 05:44 | ER Document Report ---
Doctor's Note Notes: 12/21/19 05:41 Quickly evaluated patient to ensure that she was stable pending full evaluation by incoming physician. Patient says that she has been feeling short of breath and had cough and subjective fever for few days. Patient with completely normal respiratory status, normal respiratory rate and effort, clear lungs and good air movement, with no objective signs of respiratory distress. Order chest x-ray and call with swab. Will defer full evaluation to a.m. physician.
--- NOTE | 2019-12-21 06:08 | RADIOLOGY REPORT (SQ) ---
EXAM DESCRIPTION: X-ray single view chest. CLINICAL HISTORY: 34 years Female, cough COMPARISON: 12/09/2019 and 11/28/2019 TECHNIQUE: Single portable x-ray view of the chest performed on 12/21/2019 at 5:54 AM FINDINGS: The lungs are well expanded and are clear. There is no evidence of a pneumothorax. The cardiac silhouette is normal in size and configuration. The mediastinal contours are normal. No acute osseous abnormality is identified. No focal soft tissue abnormalities are seen. Lines and tubes: None. IMPRESSION: No evidence of acute intrathoracic disease.
--- NOTE | 2019-12-21 06:44 | ER Document Report ---
ED Neck/Back Problem - General Chief Complaint: Neck Pain >24hrs old Stated Complaint: NAUSEA,CHEST PAIN,CONGESTION,SHORTNESS OF BREATH Time Seen by Provider: 12/21/19 06:22 Primary Care Provider: JOSETTE THAYER MD [Primary Care Provider] - Follow up as needed Mode of Arrival: Ambulatory Information source: Patient TRAVEL OUTSIDE OF THE [place] IN LAST 30 DAYS: No - HPI Recent injury: No Similar symptoms previously: Yes Recently seen / treated by doctor: Yes Notes: 34-year-old female presents with neck pain. Patient has been experiencing neck pain for several weeks, has been evaluated for this in the past and has had MRI on December 11. She reports posterior neck pain, feels like a pulling sensation. The pain radiates in to her bilateral jaw, bilateral shoulders. She experiences a tightness in her shoulders. She denies numbness or loss of function to her upper extremities. Denies numbness or loss of function to her lower extremities. She previously was on Flexeril, which she reports was discontinued because it was no longer working. She recently has been started on Robaxin which she feels is not working as well. At previous ED visit she did receive a dose of Decadron, has not been on a course of steroids. She states that she did see a surgeon, however the surgeon only specializes in lower backs and not necks. Additionally she reports because of her neck pain, it is causing her to cough, have a sore throat, and experienced some nausea. She denies abdominal pain, diarrhea, urinary symptoms. - Related Data Allergies/Adverse Reactions: No Known Allergies Allergy (Verified 12/08/19 04:46) Past Medical History - Social History Smoking Status: Current Every Day Smoker Family History: Reviewed & Not Pertinent - Past Medical History Cardiac Medical History: Reports: Hx Heart Attack - "Mild [place]" cause unknown Denies: Hx Coronary Artery Disease, Hx Hypertension Pulmonary Medical History: Reports: Hx Asthma - Sees Dr. Tabares , Hx Bronchitis, Hx Pneumonia Neurological Medical History: Reports: Hx Migraine, Hx Seizures - "I have small seizures", no medications at this time . Denies: Hx Cerebrovascular Accident Endocrine Medical History: Reports: Hx Diabetes Mellitus Type 2 Renal/ Medical History: Denies: Hx Peritoneal Dialysis GI Medical History: Reports: Hx Cirrhosis, Hx Gastroesophageal Reflux Disease Musculoskeletal Medical History: Denies Hx Arthritis, Reports Hx Musculoskeletal Deformity, Reports Hx Musculoskeletal Trauma Past Surgical History: Reports: Hx Cholecystectomy, Hx Orthopedic Surgery - left wrist - Immunizations Hx Diphtheria, Pertussis, Tetanus Vaccination: No Review of Systems - Review of Systems Constitutional: denies: Fever EENT: Throat pain. denies: Difficulty swallowing Cardiovascular: denies: Chest pain Respiratory: Cough Gastrointestinal: Nausea. denies: Abdominal pain, Diarrhea Genitourinary: denies: Dysuria Female Genitourinary: No symptoms reported Musculoskeletal: Muscle pain, Neck pain Skin: denies: Rash Hematologic/Lymphatic: No symptoms reported Neurological/Psychological: denies: Weakness, Numbness Physical Exam - Vital signs Vitals: Temp Pulse Resp BP Pulse Ox 98.8 F 101 H 14 136/91 H 100 12/21/19 00:39 12/21/19 00:39 12/21/19 00:39 12/21/19 00:39 12/21/19 00:39 Notes: Reviewed - General General appearance: Appears well, Alert In distress: None - HEENT Head: Normocephalic, Atraumatic Eyes: No: Scleral icterus Conjunctiva: No: Injected Pupils: PERRL Pharynx: No: Exudate, Uvular edema Neck: Supple Notes: Full range of motion of neck, no appreciable lymphadenopathy, phonation normal, no stridor, managing secretions, no swelling to posterior oropharynx, able to fully open mouth/no trismus - Respiratory Respiratory status: No respiratory distress Chest status: Nontender Breath sounds: Normal. No: Wheezing - Cardiovascular Rhythm: Regular Heart sounds: Normal auscultation Normal capillary refill: Yes - Abdominal Distension: No distension Bowel sounds: Normal Tenderness: Nontender - Extremities General upper extremity: Normal inspection, Normal strength General lower extremity: Normal inspection, Normal strength - Neurological Cognition: Normal Orientation: AAOx4 Notes: Cranial nerves II through XII grossly intact, strength is 5/5 in the upper extremities with intact sensation, strength is 5/5 in the lower extremities with intact sensation, no midline spinal tenderness - Psychological Associated symptoms: Normal mood - Skin Skin Temperature: Warm Skin Moisture: Dry Course - Re-evaluation Re-evalutation: 12/21/19 07:13 MDM 34-year-old female here with neck pain, chronic in nature. Has had MRI recently which revealed C5/6 disc protrusion with some stenosis. She currently is neurologically intact, currently no signs of cord compression. Suspect her symptoms are due to this disc protrusion as she is having no symptoms in her shoulders. No midline tenderness to suggest fracture, additionally has full range of motion. Will start with prednisone and a dose of Valium. Does have a cough on exam, clear lungs and chest x-ray without consolidation, is also afebrile, therefore less suspicious for acute viral illness. Counseled on smoking sensation. Abdomen is nontender therefore less suspicious for acute abdominal pathology, she is also status post cholecystectomy, will trial dose of Zofran. Had discussion with patient about need to follow-up with primary doctor about possible referral to a spinal surgeon. Per nursing patient refused prednisone. 12/21/19 07:30 12/21/19 07:34 Into reassess patient. She reports that she is feeling better after the Valium. Discussed with her as she mentioned she is seeing pain management, she states that she is currently not under a contract and the group is okay with her receiving medications from the ED. We will prescribe a very short course of Valium. She reports that prednisone upsets her stomach, she has tolerated Decadron in the past, will discharge with a prescription for this. Discussed follow-up with spinal surgeon, resources provided. Discussed not to drive while taking Valium as it is sedating. All questions answered. Patient is stable at time of discharge. - Vital Signs Vital signs: Temp Pulse Resp BP Pulse Ox 97.8 F 95 16 138/93 H 100 12/21/19 05:12 12/21/19 05:12 12/21/19 05:12 12/21/19 05:12 12/21/19 05:12 - Diagnostic Test Radiology reviewed: Image reviewed Discharge - Discharge Clinical Impression: Chronic neck pain Condition: Stable Disposition: HOME, SELF-CARE Additional Instructions: use valium as needed begin course of steroids please follow up with your PCP, referral to spine practice [facility] [place] [facility] Prescriptions: Dexamethasone [Decadron 4 Mg Tablet] 4 mg PO DAILY 5 Days tablet Diazepam [Valium 5 mg Tablet] 5 mg PO TIDP PRN #6 tablet PRN Reason: Muscle Spasms Referrals: JOSETTE THAYER MD [Primary Care Provider] - Follow up as needed Print Language: Latvian
[2019-12-21] MEDS ORDERED: PREDNISONE 20 MG TABLET PO ONE (06:46)
[2019-12-21] MEDS ORDERED: DIAZEPAM 5 MG TABLET PO ONE (06:46)
[2019-12-21] MEDS ORDERED: ONDANSETRON 4 MG TAB.RAPDIS PO ONE (06:46)
[2019-12-21 08:33] VITALS: BP 126/82
== END 2019-12-21 08:33 | disposition home or self-care (01) ==
LOC: ER 00:06
DX: G89.29 Other chronic pain (principal); M54.2 Cervicalgia; R07.9 Chest pain, unspecified; R06.02 Shortness of breath; R11.0 Nausea; Z20.828 Contact with and (suspected) exposure to other viral communicable diseases; F17.200 Nicotine dependence, unspecified, uncomplicated; E11.9 Type 2 diabetes mellitus without complications; I25.2 Old myocardial infarction; Z90.49 Acquired absence of other specified parts of digestive tract
CPT/HCPCS: 99285; 87635; 71045; S0119; C9803

== ENCOUNTER 2019-12-27 04:34 | Emergency (ER) | payer BC ==
--- NOTE | 2019-12-27 09:37 | ER Document Report ---
ED Neck/Back Problem - General Chief Complaint: Neck Problem Stated Complaint: NECK PROBLEM Time Seen by Provider: 12/27/19 09:15 Primary Care Provider: LESLIE CHRISTIANSEN MD [Primary Care Provider] - Follow up as needed Mode of Arrival: Ambulatory Information source: Patient TRAVEL OUTSIDE OF THE [place] IN LAST 30 DAYS: No - HPI Notes: Patient complains of neck pain that she has had for many months. She claims it is getting worse. She has recently had an MRI and also has a referral to orthopedic surgery. She is also had numerous visits to the emergency department for similar complaints. She currently takes muscle relaxers and Percocet at home. She states that this is not working at that she continues to have spasms. Patient also reports some nausea. She had some URI type complaints recently and did have a COVID test that was negative. She states that the pain is bilateral in her neck and is a "spasm" sensation. It is constant. It seems be worse with movement and better with rest. It radiates down both sides of her neck. She does have a history of chronic radiculitis. She is currently followed by her primary care physician who is working on a referral to orthopedics. - Related Data Allergies/Adverse Reactions: No Known Allergies Allergy (Verified 12/27/19 07:33) Home Medications: muscle relaxers. pain medication. lyrica. restoril. advair. spiriva Past Medical History - General Information source: Patient - Social History Smoking Status: Current Every Day Smoker Chew tobacco use (# tins/day): No Frequency of alcohol use: None Drug Abuse: None Family History: Reviewed & Not Pertinent Patient has homicidal ideation: No - Past Medical History Cardiac Medical History: Reports: Hx Heart Attack - "Mild [place]" cause unknown Denies: Hx Coronary Artery Disease, Hx Hypertension Pulmonary Medical History: Reports: Hx Asthma - Sees Dr. Tabares , Hx Bronchitis, Hx Pneumonia Neurological Medical History: Reports: Hx Migraine, Hx Seizures - "I have small seizures", no medications at this time . Denies: Hx Cerebrovascular Accident Endocrine Medical History: Reports: Hx Diabetes Mellitus Type 2 Renal/ Medical History: Denies: Hx Peritoneal Dialysis GI Medical History: Reports: Hx Cirrhosis, Hx Gastroesophageal Reflux Disease Musculoskeletal Medical History: Denies Hx Arthritis, Reports Hx Musculoskeletal Deformity, Reports Hx Musculoskeletal Trauma Past Surgical History: Reports: Hx Cholecystectomy, Hx Orthopedic Surgery - left wrist - Immunizations Hx Diphtheria, Pertussis, Tetanus Vaccination: No Review of Systems - Review of Systems Constitutional: denies: Chills, Fever Cardiovascular: denies: Chest pain, Palpitations Respiratory: denies: Cough, Short of breath -: Yes All other systems reviewed and negative Physical Exam - Vital signs Vitals: Temp Pulse Resp BP Pulse Ox 98.8 F 86 14 132/97 H 97 12/27/19 04:33 12/27/19 04:33 12/27/19 04:33 12/27/19 04:33 12/27/19 04:33 Interpretation: Normal - General General appearance: Appears well, Alert - HEENT Head: Normocephalic, Atraumatic Eyes: Normal Pupils: PERRL Neck: Other - Patient has limited range of motion of her neck secondary to pain. She has some tenderness to palpation of her trapezius. Inspection is unremarkable. - Respiratory Respiratory status: No respiratory distress Chest status: Nontender Breath sounds: Normal Chest palpation: Normal - Cardiovascular Rhythm: Regular Heart sounds: Normal auscultation Murmur: No - Abdominal Inspection: Normal Distension: No distension Bowel sounds: Normal Tenderness: Nontender Organomegaly: No organomegaly - Back Back: Normal, Nontender - Extremities General upper extremity: Normal inspection, Nontender, Normal color, Normal ROM, Normal temperature General lower extremity: Normal inspection, Nontender, Normal color, Normal ROM, Normal temperature, Normal weight bearing. No: Shubham's sign - Neurological Neuro grossly intact: Yes Cognition: Normal Orientation: AAOx4 Polina Coma Scale Eye Opening: Spontaneous Polina Coma Scale Verbal: Oriented [place] Coma Scale Motor: Obeys Commands [place] Coma Scale Total: 15 Speech: Normal Cranial nerves: Normal Cerebellar coordination: Normal. No: Gait ataxia, Finger-nose rhombey Motor strength normal: LUE, RUE, LLE, RLE Additional motor exam normals: Equal cell builder. No: Pronator drift Sensory: Normal - Psychological Associated symptoms: Normal affect, Normal mood - Skin Skin Temperature: Warm Skin Moisture: Dry Skin Color: Normal Course - Re-evaluation Re-evalutation: 12/27/19 09:34 I educated patient that I did not feel is in her best interest to have any type of narcotic medicine or muscle relaxer as she is on these chronically and already has a history of liver disease. I informed her that I felt the best option at this time was to try some anesthetic patches. - Vital Signs Vital signs: Temp Pulse Resp BP Pulse Ox 98.8 F 86 14 132/97 H 97 12/27/19 04:33 12/27/19 04:33 12/27/19 04:33 12/27/19 04:33 12/27/19 04:33 Discharge - Discharge Clinical Impression: Person under investigation for COVID-19, Viral syndrome Condition: Stable Disposition: HOME, SELF-CARE Instructions: Viral Syndrome ([facility]), COVID-19 Guidance for Persons Under Investigation Additional Instructions: Please quarantine until the results of your Covid test have returned Forms: Return to Work Referrals: LESLIE CHRISTIANSEN MD [Primary Care Provider] - Follow up in 3-5 days
--- NOTE | 2019-12-27 13:09 | ER Document Report ---
Doctor's Note Notes: 12/27/19 13:09 In my original note it states that the patient has had 15 visits since November 17, 2023. This is obviously an error. It should state that the patient has had 15 visits since November 17, 2019.
[2019-12-27] MEDS ORDERED: MORPHINE SULFATE 10 MG/ML INJ IV ONE ×2 (15:22→20:55)
[2019-12-27] MEDS ORDERED: NICOTINE 14 MG/24 HR PATCH.TD24 TD ONE (19:57)
[2019-12-28] MEDS ORDERED: MORPHINE SULFATE 10 MG/ML INJ IV ONE ×2 (03:31→17:10)
[2019-12-28] MEDS ORDERED: ONDANSETRON HCL INJ/PF 4 MG/2 ML SDV IV ONE (03:31)
[2019-12-28] MEDS: ONDANSETRON 4 MG TAB.RAPDIS PO SCH ×4 (09:13→22:00)
[2019-12-28] MEDS: MORPHINE SULFATE 10 MG/ML INJ IV SCH ×4 (09:13→22:00)
[2019-12-29] MEDS ORDERED: CYCLOBENZAPRINE HCL 10 MG TABLET PO ONE (01:21)
[2019-12-29] MEDS: ONDANSETRON 4 MG TAB.RAPDIS PO SCH ×5 (01:39→18:21)
[2019-12-29] MEDS: MORPHINE SULFATE 10 MG/ML INJ IV SCH ×5 (02:23→18:21)
[2019-12-29] MEDS ORDERED: NICOTINE 21 MG/24 HR PATCH.TD24 TD ONE (15:49)
--- NOTE | 2019-12-29 15:50 | ER Document Report ---
Doctor's Note Notes: 12/29/19 15:49 Patient reexamined just now. Patient has no neurological deficits. She is resting comfortably in the bed. She is asking if she can go outside and smoke a cigarette. I informed her that this is not possible because it is a non-smoking campus. I did offer the patient a nicotine patch she states she would try it but that previous ones have not worked. She was able to eat lunch. We are currently waiting on a bed at [facility]. She is resting comfortably in the bed in no distress.
[2019-12-29 18:26] VITALS: BP 124/86
--- NOTE | 2019-12-29 18:31 | ER Document Report ---
Doctor's Note Notes: 12/29/19 18:30 Received patient in signout. She is in process of being transferred to [facility] for neurosurgery evaluation. Transport has arrived. Patient was seen and assessed, she was ambulatory in the room, denied complaints. Stable for transfer.
== END 2019-12-29 18:39 | disposition home or self-care (01) ==
LOC: ER 04:34
DX: M50.122 Cervical disc disorder at C5-C6 level with radiculopathy (principal); R11.0 Nausea; F17.200 Nicotine dependence, unspecified, uncomplicated; E11.9 Type 2 diabetes mellitus without complications
CPT/HCPCS: 96376; 99285; 96374; 96375; 82962; S0119; J2270 ×2; J2405

== ENCOUNTER 2020-01-07 02:13 | Emergency (ER) | payer BC ==
[2020-01-07] MEDS ORDERED: MORPHINE SULFATE 10 MG/ML INJ IV ONE (05:26)
--- NOTE | 2020-01-07 05:50 | ER Document Report ---
Entered by JUAN LUZ SCRIBE 01/07/20 0531 Acting as scribe for:ANGIE ESTRADA IV, MD ED Neck/Back Problem - General Mode of Arrival: Medic Information source: Patient TRAVEL OUTSIDE OF THE [place] IN LAST 30 DAYS: No - General Chief Complaint: Neck Pain >24hrs old Stated Complaint: NECK PAIN Time Seen by Provider: 01/07/20 05:17 Primary Care Provider: LESLIE CHRISTIANSEN MD [Primary Care Provider] - Follow up as needed Notes: This 34 year old female patient brought in by EMS presents to the ED today with increasing posterior neck pain that radiates to her shoulders. Patient is status postop cervical neck decompression that occurred at [facility] by Dr. Prabhakar Martini on 01/01/2020. Patient states that she was discharged x3 days ago with a neck brace and a prescription for Robaxin. She reports that she has been taking Oxycodone and Dilaudid without relief. (ANGIE ESTRADA IV) - Related Data Allergies/Adverse Reactions: No Known Allergies Allergy (Verified 12/27/19 07:33) Past Medical History - General Information source: Patient, [facility] - Social History Smoking Status: Never Smoker Cigarette use (# per day): No Chew tobacco use (# tins/day): No Smoking Education Provided: No Family History: Reviewed & Not Pertinent Patient has suicidal ideation: No Patient has homicidal ideation: No - Past Medical History Cardiac Medical History: Reports: Hx Heart Attack - "Mild [place]" cause unknown Pulmonary Medical History: Reports: Hx Asthma - Sees Dr. Tabares , Hx Bronchitis, Hx Pneumonia Neurological Medical History: Reports: Hx Migraine, Hx Seizures - "I have small seizures", no medications at this time Endocrine Medical History: Reports: Hx Diabetes Mellitus Type 2 GI Medical History: Reports: Hx Cirrhosis, Hx Gastroesophageal Reflux Disease Musculoskeletal Medical History: Reports Hx Musculoskeletal Deformity, Reports Hx Musculoskeletal Trauma Past Surgical History: Reports: Hx Cholecystectomy, Hx Orthopedic Surgery - left wrist; neck - Immunizations Hx Diphtheria, Pertussis, Tetanus Vaccination: No Review of Systems - Review of Systems Constitutional: No symptoms reported EENT: No symptoms reported Cardiovascular: No symptoms reported Respiratory: No symptoms reported Gastrointestinal: No symptoms reported Genitourinary: No symptoms reported Female Genitourinary: No symptoms reported Musculoskeletal: See HPI, Joint pain, Neck pain Skin: No symptoms reported Hematologic/Lymphatic: No symptoms reported Neurological/Psychological: No symptoms reported -: Yes All other systems reviewed and negative Physical Exam - General General appearance: Alert In distress: None - HEENT Head: Normocephalic, Atraumatic Eyes: Normal Pupils: PERRL Neck: Other - Deferred due to neck brace - Respiratory Respiratory status: No respiratory distress Chest status: Nontender Breath sounds: Normal Chest palpation: Normal - Cardiovascular Rhythm: Regular Heart sounds: Normal auscultation Murmur: No Friction rub: No Gallop: None auscultated - Abdominal Inspection: Normal Distension: No distension Bowel sounds: Normal Tenderness: Nontender - Abdomen soft Organomegaly: No organomegaly - Back Back: Normal, Nontender - Extremities General upper extremity: Normal inspection General lower extremity: Normal inspection - Neurological Neuro grossly intact: Yes Orientation: AAOx4 Polina Coma Scale Eye Opening: Spontaneous [place] Coma Scale Verbal: Oriented [place] Coma Scale Motor: Obeys Commands [place] Coma Scale Total: 15 - Psychological Associated symptoms: Normal affect, Normal mood - Skin Skin Temperature: Warm Skin Moisture: Dry Skin Color: Normal - Vital signs Vitals: Temp Pulse Resp BP Pulse Ox 98.4 F 79 16 139/94 H 97 01/07/20 02:21 01/07/20 02:21 01/07/20 02:21 01/07/20 02:21 01/07/20 02:21 Course - Re-evaluation Re-evalutation: 01/07/20 10:22 Await at this time to reach out to Dr. Radford the area neurosurgery and at [facility]. My colleague Dr. lowery had been told that Dr. Lyons would be working today therefore we will wait to speak to Dr. Lyons about our mutual patient Ms. Yudy Elder. As stated patient had neurosurgery of her neck disc decompression December 31. After 3 days patient was discharged home on muscle relaxants and narcotic pain medications. Patient reports that her pain is worse than better since her been done prior to her surgery and that she is taking the pain medications with no relief. I explained to patient that I have learned that Dr. Dempsey is not working today advised [facility] and therefore is not reachable at this time. And then I advised that she continue her her medications as she has been prescribed continue to wear her neck brace as prescribed and follow-up with Dr. Lyons on Thursday at [facility]. Patient denies any fever chills or any complications of her surgery other than the fact that she has neck pain. I discussed with patient that that there perhaps is an expectation for postop pain that maybe she did not truly realize but that she should continue her path of medications and follow-up with her primary neurosurgeon. I did explain to patient that it was impossible for me to transfer her there inasmuch as the vital hospitalist on the regional diversion at this time. (REDDY MCCOY) - Vital Signs Vital signs: Temp Pulse Resp BP Pulse Ox 98.4 F 79 16 139/94 H 97 01/07/20 02:21 01/07/20 02:21 01/07/20 02:21 01/07/20 02:01/07/20 02:21 Discharge - Discharge Clinical Impression: Other acute postoperative pain Condition: Stable Disposition: HOME, SELF-CARE Additional Instructions: Pain Control without Medication Stress, inactivity, and depression make pain more severe, no matter the cause of the pain. Stress and poor physical condition can cause pain such as headaches and backache. Relaxation: Rest in a quiet place with your eyes closed for 20 minutes twice daily. Concentrate on a pleasant image, or simply "feel" your breathing. Clear your mind. Stress management: DEAL with your "stressors." Either take action, or eliminate the stressor from your life. Don't let things hang over you. Accept those things you can't change. Nutrition: Eat small, balanced meals; don't skip, don't overeat. Meals should be high-carbohydrate, low-sugar, low-fat. Exercise: Exercise helps painful conditions and eases stress. Get 30 minutes of moderate exercise, five days a week. Precautions: Pain that continues to disrupt daily activities, or which changes in nature, requires a medical evaluation. As discussed most likely your pain increase in your neck is due to postop pain from having recent surgery. You are currently on muscle relaxants and narcotic medications to control this problem. We advised that you follow-up with your neurosurgeon who provided the procedure to you on December 31 and continue to take your pain medications as you have at this time. Referrals: LESLIE CHRISTIANSEN MD [Primary Care Provider] - Follow up as needed I personally performed the services described in the documentation, reviewed and edited the documentation which was dictated to the scribe in my presence, and it accurately records my words and actions.
[2020-01-07] MEDS ORDERED: HYDROMORPHONE HCL INJ/PF 2 MG/ML AMPULE IV ONE (10:20)
[2020-01-07] MEDS ORDERED: ONDANSETRON HCL INJ/PF 4 MG/2 ML SDV IV ONE (10:21)
[2020-01-07 10:56] VITALS: BP 146/85
== END 2020-01-07 11:09 | disposition home or self-care (01) ==
LOC: ER 02:13
DX: G89.18 Other acute postprocedural pain (principal); M54.2 Cervicalgia; M25.511 Pain in right shoulder; M25.512 Pain in left shoulder; Z98.890 Other specified postprocedural states; Z79.899 Other long term (current) drug therapy; I25.2 Old myocardial infarction; J45.909 Unspecified asthma, uncomplicated; E11.9 Type 2 diabetes mellitus without complications
CPT/HCPCS: 99284; 96374; 96375; J2270; J1170; J2405

== ENCOUNTER 2020-01-15 21:54 | Emergency (ER) | payer BC ==
--- NOTE | 2020-01-15 23:04 | ER Document Report ---
ED Medical Screen (RME) - General Chief Complaint: Neck Pain >24hrs old Stated Complaint: NECK PAIN Time Seen by Provider: 01/15/20 23:01 Primary Care Provider: LESLIE CHRISTIANSEN MD [Primary Care Provider] - Follow up as needed Mode of Arrival: Wheelchair Information source: Patient Notes: 34-year-old female presented to ED for complaint of increased cervical pain that goes down to her legs. She states she had a cervical decompression 2 weeks ago last night the new cervical pain started to goes down to her feet. She states is all the way down her back. She states 2 days ago she started with short of breath and cough. She states she does smoke 2 cigarettes a day but this is a new cough. She does have a history of asthma migraines reflux and constipation. The patient was evaluated during the global Covid 19 pandemic, and that diagnosis was suspected/considered upon their initial presentation. Their evaluation, treatment and testing was consistent with current guidelines for patients who present with complaints or symptoms that may be related to Covid 19. I have greeted and performed a rapid initial assessment of this patient. A comprehensive ED assessment and evaluation of the patient, analysis of test results and completion of medical decision making process will be conducted by an additional ED providers. TRAVEL OUTSIDE OF THE [place] IN LAST 30 DAYS: No - Related Data Allergies/Adverse Reactions: No Known Allergies Allergy (Verified 12/27/19 07:33) Past Medical History - Past Medical History Cardiac Medical History: Reports: Hx Heart Attack - "Mild [place]" cause unknown Denies: Hx Coronary Artery Disease, Hx Hypertension Pulmonary Medical History: Reports: Hx Asthma - Sees Dr. Tabares , Hx Bronchitis, Hx Pneumonia Neurological Medical History: Reports: Hx Migraine, Hx Seizures - "I have small seizures", no medications at this time . Denies: Hx Cerebrovascular Accident Endocrine Medical History: Reports: Hx Diabetes Mellitus Type 2 Renal/ Medical History: Denies: Hx Peritoneal Dialysis GI Medical History: Reports: Hx Cirrhosis, Hx Gastroesophageal Reflux Disease Musculoskeltal Medical History: Denies Hx Arthritis, Reports Hx Musculoskeletal Deformity, Reports Hx Musculoskeletal Trauma Past Surgical History: Reports: Hx Cholecystectomy, Hx Orthopedic Surgery - left wrist; neck - Immunizations Hx Diphtheria, Pertussis, Tetanus Vaccination: No Physical Exam - Vital signs Vitals: Temp Pulse Resp BP Pulse Ox 98.2 F 86 16 140/90 H 88 L 01/15/20 22:00 01/15/20 22:00 01/15/20 22:00 01/15/20 22:00 01/15/20 22:00 Course - Vital Signs Vital signs: Temp Pulse Resp BP Pulse Ox 98.2 F 86 16 140/90 H 88 L 01/15/20 22:00 01/15/20 22:00 01/15/20 22:00 01/15/20 22:00 01/15/20 22:00 Doctor's Discharge - Discharge Referrals: LESLIE CHRISTIANSEN MD [Primary Care Provider] - Follow up as needed
[2020-01-16] MEDS ORDERED: MORPHINE SULFATE 10 MG/ML INJ IV ONE (01:52)
--- NOTE | 2020-01-16 03:25 | ER Document Report ---
ED General - General Chief Complaint: Neck Pain >24hrs old Stated Complaint: NECK PAIN Time Seen by Provider: 01/15/20 23:01 Primary Care Provider: LESLIE CHRISTIANSEN MD [Primary Care Provider] - Follow up as needed Mode of Arrival: Wheelchair Information source: Patient TRAVEL OUTSIDE OF THE [place] IN LAST 30 DAYS: No - HPI Notes: Patient comes in complaining of neck pain. Patient recently had surgery at [facility] that included cervical decompression with placement of some hardware. The exact surgery is still unclear at this time. Patient is unable to tell me exactly what the surgery was. Patient comes in now complain of posterior neck pain that radiates down both arms and both legs but is greater on the right side. She feels it is gotten worse over the last 2 weeks and that she is also more weak on the right arm and right leg over the last 2 weeks. She states she has had some constipation but no incontinence of urine or stool. No fevers. She is also had some cough and congestion. The pain in her neck is constant. Severe. Is worse with movement and better with rest. It does radiate as above. It is sharp. - Related Data Allergies/Adverse Reactions: No Known Allergies Allergy (Verified 12/27/19 07:33) Past Medical History - General Information source: Patient - Social History Smoking Status: Current Every Day Smoker Frequency of alcohol use: None Drug Abuse: None Family History: Reviewed & Not Pertinent - Past Medical History Cardiac Medical History: Reports: Hx Heart Attack - "Mild [place]" cause unknown Denies: Hx Coronary Artery Disease, Hx Hypertension Pulmonary Medical History: Reports: Hx Asthma - Sees Dr. Tabares , Hx Bronchitis, Hx Pneumonia Neurological Medical History: Reports: Hx Migraine, Hx Seizures - "I have small seizures", no medications at this time . Denies: Hx Cerebrovascular Accident Endocrine Medical History: Reports: Hx Diabetes Mellitus Type 2 Renal/ Medical History: Denies: Hx Peritoneal Dialysis GI Medical History: Reports: Hx Cirrhosis, Hx Gastroesophageal Reflux Disease Musculoskeletal Medical History: Denies Hx Arthritis, Reports Hx Musculoskeletal Deformity, Reports Hx Musculoskeletal Trauma Past Surgical History: Reports: Hx Cholecystectomy, Hx Orthopedic Surgery - left wrist; neck - Immunizations Hx Diphtheria, Pertussis, Tetanus Vaccination: No Review of Systems - Review of Systems Constitutional: Malaise, Weakness Respiratory: Cough. denies: Hemoptysis Gastrointestinal: Constipation. denies: Vomiting -: Yes All other systems reviewed and negative Physical Exam - Vital signs Vitals: Temp Pulse Resp BP Pulse Ox 98.2 F 86 16 140/90 H 88 L 01/15/20 22:00 01/15/20 22:00 01/15/20 22:00 01/15/20 22:00 01/15/20 22:00 Interpretation: Hypertensive, Hypoxic - General General appearance: Appears well, Alert - HEENT Head: Normocephalic, Atraumatic Eyes: Normal Pupils: PERRL - Respiratory Respiratory status: No respiratory distress Chest status: Nontender Breath sounds: Decreased air movement Chest palpation: Normal - Cardiovascular Rhythm: Regular Heart sounds: Normal auscultation Murmur: No - Abdominal Inspection: Normal Distension: No distension Bowel sounds: Normal Tenderness: Nontender Organomegaly: No organomegaly - Back Back: Normal, Nontender - Extremities General upper extremity: Normal inspection, Nontender, Normal color, Normal ROM, Normal temperature General lower extremity: Normal inspection, Nontender, Normal color, Normal ROM, Normal temperature, Normal weight bearing. No: Shubham's sign - Neurological Cognition: Normal Orientation: AAOx4 [place] Coma Scale Eye Opening: Spontaneous [place] Coma Scale Verbal: Oriented [place] Coma Scale Motor: Obeys Commands [place] Coma Scale Total: 15 Speech: Normal Additional motor exam normals: No: Equal parts counter associate - decreasd on right Sensory: Normal - Psychological Associated symptoms: Normal affect, Normal mood - Skin Skin Temperature: Warm Skin Moisture: Dry Skin Color: Normal Course - Re-evaluation Re-evalutation: 01/16/20 03:52 Patient presents with neck pain after surgery and some radicular symptoms. She is currently awaiting a CT of her cervical spine. Patient will be turned over to Dr. Curran at 4 AM. She will follow-up on results of CT scan determine final disposition and plan. - Vital Signs Vital signs: Temp Pulse Resp BP Pulse Ox 97.9 F 63 12 138/86 H 100 01/16/20 01:42 01/16/20 01:42 01/16/20 01:42 01/16/20 01:42 01/16/20 01:42 - Laboratory Result Diagrams: 01/16/20 03:23 01/16/20 03:23 Laboratory results interpreted by me: 01/16/20 03:23 Hgb 15.7 H Discharge - Discharge Clinical Impression: Neck pain Condition: Stable Disposition: OTHER Referrals: LESLIE CHRISTIANSEN MD [Primary Care Provider] - Follow up as needed
[2020-01-16 03:43] LABS: ABSOLUTE BASOPHILS # (AUTO) 0.1 10^3/uL (0.0-0.2); ABSOLUTE EOSINOPHILS # (AUTO) 0.2 10^3/uL (0.0-0.6); ABSOLUTE LYMPHOCYTES (AUTO) 2.8 10^3/uL (0.5-4.7); ABSOLUTE MONOCYTES (AUTO) 0.4 10^3/uL (0.1-1.4); ABSOLUTE NEUT (AUTO) 4.8 10^3/uL (1.7-8.2); BASOPHILS % (AUTO) 0.9 % (0-2); EOSINOPHILS % (AUTO) 2.1 % (0-6); HEMATOCRIT 44.6 % (36.0-47.0); HEMOGLOBIN 15.7 g/dL (12.0-15.5); LYMPHOCYTES % (AUTO) 34.2 % (13-45); MEAN CORPUSCULAR HEMOGLOBIN 31.4 pg (27.0-33.4); MEAN CORPUSCULAR HGB CONC 35.2 g/dL (32.0-36.0); MEAN CORPUSCULAR VOLUME 89 fl (80-97); MONOCYTES % (AUTO) 4.6 % (3-13); PLATELET COUNT 244 10^3/uL (150-450); RED BLOOD COUNT 5.01 10^6/uL (3.72-5.28); RED CELL DISTRIBUTION WIDTH 12.6 % (11.5-14.0); SEGMENTED NEUTROPHILS % (AUTO) 58.2 % (42-78); TOTAL CELLS COUNTED % (AUTO) 100 %; WHITE BLOOD COUNT 8.2 10^3/uL (4.0-10.5)
--- NOTE | 2020-01-16 04:39 | RADIOLOGY REPORT (SQ) ---
EXAM: CT Cervical Spine Without Intravenous Contrast EXAM DATE/TIME: 01/15/2020 4:11 AM CLINICAL HISTORY: The patient is 34 years old and is Female; Cervical decompression 2 weeks ago increased neck TECHNIQUE: Axial computed tomography images of the cervical spine without intravenous contrast. Sagittal and coronal reformatted images were created and reviewed. This CT exam was performed using one or more of the following dose reduction techniques: automated exposure control, adjustment of the mA and/or kV according to patient size, and/or use of iterative reconstruction technique. COMPARISON: MRI of the cervical spine from 12/12/2019 FINDINGS: VERTEBRAE: The patient is status post anterior cervical discectomy and fusion at C5-6. The hardware is intact. No acute fracture. There is straightening of the normal cervical lordosis. Vertebral body alignment is well-maintained. DISCS/SPINAL CANAL/NEURAL FORAMINA: See above. Remaining intervertebral disc heights are well-maintained. There is residual osteophytosis extending posteriorly from the inferior endplate of C5 and superior endplate of C6, primarily to the right of midline. There is suggestion of mild to moderate associated stenosis at this level. Otherwise, no significant spinal canal stenosis appreciated. There is apparent mild left-sided neural foraminal narrowing at C3-4. SOFT TISSUES: No significant prevertebral soft tissue swelling. IMPRESSION: 1. No acute findings visualized in the cervical spine. 2. Apparent mild to moderate stenosis at C5-6 secondary to posterior osteophytes at this level.
--- NOTE | 2020-01-16 04:45 | RADIOLOGY REPORT (SQ) ---
CLINICAL HISTORY: cough/pain COMPARISON: None. TECHNIQUE: CT CHEST ANGIOGRAPHY WITHOUT THEN WITH IV CONTRAST on 01/16/2020 3:25 AM CDT. MIPS reconstructions were generated. This exam was performed according to our departmental dose-optimization program, which includes automated exposure control, adjustment of the mA and/or kV according to patient size and/or use of iterative reconstruction technique. MIP images were generated. FINDINGS: Thoracic aorta is normal in course and caliber without aneurysm or dissection. Pulmonary arteries are adequately opacified without acute or chronic filling defects. The heart is normal in size. There is no pericardial effusion. Intrathoracic lymph nodes are not enlarged. There is no pleural effusion, pleural thickening or pneumothorax. Central airways are patent. Lungs are clear with no consolidation, mass or interstitial lung disease. There are no acute abnormalities within the limited images of the upper abdomen. There are no acute osseous findings. No suspicious bony lesions. IMPRESSION: No aortic dissection or aneurysm. No pulmonary embolus. No pneumonia.
[2020-01-16 05:12] LABS: APPEARANCE,URINE SLIGHTLY-CLOUDY; BILIRUBIN,URINE NEGATIVE (NEGATIVE); COLOR,URINE YELLOW; GLUCOSE, URINE NEGATIVE (NEGATIVE); KETONES,URINE NEGATIVE (NEGATIVE); LEUKOCYTE ESTERASE,URINE TRACE (NEGATIVE); NITRITE,URINE NEGATIVE (NEGATIVE); PROTEIN,URINE NEGATIVE (NEGATIVE); URINE SPECIFIC GRAVITY 1.035; UROBILINOGEN,URINE NEGATIVE mg/dL (<2.0)
[2020-01-16] MEDS ORDERED: OXYCODONE HCL IR 5 MG TABLET PO ONE (06:07)
--- NOTE | 2020-01-16 06:08 | ER Document Report ---
Doctor's Note Notes: 01/16/20 06:08 Received patient in signout, pending CTs. CTs have resulted, images reviewed and reports reviewed. Per radiology, CTA chest is negative for PE. CT C-spine is negative for acute findings, has chronic stenosis at the C5-6 level, had anterior fixation. I went in to update patient on results and to examine her. She has full motor of her arms and legs. She is able to move freely in the bed. She states that she has neurosurgery follow-up on Thursday. I discussed with her that potentially pain could be coming from the c-collar, advised not to be taken off until she is cleared by neurosurgery. I discussed with the patient that she is appropriate for discharge home at this time, she is agreeable to discharge. She states she has pain medications and muscle relaxers at home. She is requesting dose of pain medication for her ride home. Will order oral Oxy. I discussed return precautions, she is stable at time of discharge.
[2020-01-16 06:16] VITALS: BP 124/109
== END 2020-01-16 06:18 | disposition home or self-care (01) ==
LOC: ER 21:54
DX: M54.2 Cervicalgia (principal); Z98.890 Other specified postprocedural states; M79.601 Pain in right arm; M79.602 Pain in left arm; M79.604 Pain in right leg; M79.605 Pain in left leg; K59.00 Constipation, unspecified; R53.81 Other malaise; R53.1 Weakness; R05 Cough; F17.200 Nicotine dependence, unspecified, uncomplicated; I25.2 Old myocardial infarction; J45.909 Unspecified asthma, uncomplicated; E11.9 Type 2 diabetes mellitus without complications; Z20.828 Contact with and (suspected) exposure to other viral communicable diseases
CPT/HCPCS: 99285; 96374; 36415; 85025; 81001; 71275; 72125; U0003; J2270; C9803; 87635

== ENCOUNTER 2020-01-20 17:44 | Emergency (ER) | payer BC ==
[2020-01-20 17:51] VITALS: BP 130/86
--- NOTE | 2020-01-20 18:33 | ER Document Report ---
ED Medical Screen (RME) - General Chief Complaint: Post Surgical Pain Stated Complaint: POST SURGERY SPINAL PAIN "FELT SOMETHING SHIFT" Time Seen by Provider: 01/20/20 18:26 Primary Care Provider: LESLIE CHRISTIANSEN MD [Primary Care Provider] - Follow up as needed Mode of Arrival: Wheelchair Information source: Patient Notes: 34-year-old female presents to ED for complaint of continued pain in her neck. Patient states that she had a neck decompression around 29 December. She states that she had an appointment with the surgeon on Thursday and the doctor did not come to the appointment they just someone came in and took the strips off of her neck and told her it was time to go home. She states last night she took the brace off like she supposed to do at night to sleep and she felt something weird in her neck and now she has weird feeling all over. She states she did not fall. She states she supposed to wear this neck brace another month. She states she smokes about 4 cigarettes a day and does not drink or do any drugs. I have greeted and performed a rapid initial assessment of this patient. A comprehensive ED assessment and evaluation of the patient, analysis of test results and completion of medical decision making process will be conducted by an additional ED providers. TRAVEL OUTSIDE OF THE [place] IN LAST 30 DAYS: No - Related Data Allergies/Adverse Reactions: No Known Allergies Allergy (Verified 12/27/19 07:33) Past Medical History - Past Medical History Cardiac Medical History: Reports: Hx Heart Attack - "Mild [place]" cause unknown Denies: Hx Coronary Artery Disease, Hx Hypertension Pulmonary Medical History: Reports: Hx Asthma - Sees Dr. Tabares , Hx Bronchitis, Hx Pneumonia Neurological Medical History: Reports: Hx Migraine, Hx Seizures - "I have small seizures", no medications at this time . Denies: Hx Cerebrovascular Accident Endocrine Medical History: Reports: Hx Diabetes Mellitus Type 2 Renal/ Medical History: Denies: Hx Peritoneal Dialysis GI Medical History: Reports: Hx Cirrhosis, Hx Gastroesophageal Reflux Disease Musculoskeltal Medical History: Denies Hx Arthritis, Reports Hx Musculoskeletal Deformity, Reports Hx Musculoskeletal Trauma Past Surgical History: Reports: Hx Cholecystectomy, Hx Orthopedic Surgery - left wrist; neck - Immunizations Hx Diphtheria, Pertussis, Tetanus Vaccination: No Physical Exam - Vital signs Vitals: Temp Pulse Resp BP Pulse Ox 98.7 F 105 H 18 130/86 H 97 01/20/20 17:49 01/20/20 17:49 01/20/20 17:49 01/20/20 17:49 01/20/20 17:49 Course - Vital Signs Vital signs: Temp Pulse Resp BP Pulse Ox 98.7 F 105 H 18 130/86 H 97 01/20/20 17:49 01/20/20 17:49 01/20/20 17:49 01/20/20 17:49 01/20/20 17:49 Doctor's Discharge - Discharge Referrals: LESLIE CHRISTIANSEN MD [Primary Care Provider] - Follow up as needed
[2020-01-20] MEDS ORDERED: ACETAMINOPHEN 325 MG TABLET PO ONE (18:34)
--- NOTE | 2020-01-20 22:33 | ER Document Report ---
ED General - General Chief Complaint: Post Surgical Pain Stated Complaint: POST SURGERY SPINAL PAIN "FELT SOMETHING SHIFT" Time Seen by Provider: 01/20/20 18:26 Primary Care Provider: LESLIE CHRISTIANSEN MD [Primary Care Provider] - Follow up as needed Mode of Arrival: Wheelchair TRAVEL OUTSIDE OF THE [place] IN LAST 30 DAYS: No - HPI Context: 34-year-old female, well-known to this ED, well-known to this provider presents to the emergency department complaining of neck pain. Patient is status post cervical decompression approximately 3 weeks ago. Patient states last night she took off her postsurgical c-collar and felt a "pop" in her neck that made her feel "weird." Patient states that the sensation of discomfort makes her feel like it is difficult for her to move her mouth and open her jaw. Patient does not report difficulty with bowel or bladder movements. Patient is able to transfer her body weight without assistance from the ED stretcher bed to the wheelchair and off the wheelchair onto the toilet. Patient denies fever, chills, shortness of breath, chest pain, nausea, vomiting, loss of taste, loss of smell. Patient states that she went to her appointment at the neurosurgeon at [facility] 2 days ago. She states that the neurosurgeon "did not show up" and she basically just had some Steri-Strips removed from her surgical site and was told that she could stop wearing her neck brace. Patient states that when she took off her neck brace last night she felt a pop followed by a sensation of pain in her neck and her jaw. She states that she kept the neck brace off about 6 hours and then finally put it back on. She states that the neck brace slightly minimizes the discomfort she experienced and after first taking off the neck brace. Associated symptoms: Other - See HPI Exacerbated by: Movement Relieved by: Other - Nothing Recently seen / treated by doctor: Yes - See HPI - Related Data Allergies/Adverse Reactions: No Known Allergies Allergy (Verified 12/27/19 07:33) Past Medical History - General Information source: Patient - Social History Smoking Status: Unknown if Ever Smoked Family History: Reviewed & Not Pertinent Patient has homicidal ideation: No - Past Medical History Cardiac Medical History: Reports: Hx Heart Attack - "Mild [place]" cause unknown Denies: Hx Coronary Artery Disease, Hx Hypertension Pulmonary Medical History: Reports: Hx Asthma - Sees Dr. Tabares , Hx Bronchitis, Hx Pneumonia Neurological Medical History: Reports: Hx Migraine, Hx Seizures - "I have small seizures", no medications at this time . Denies: Hx Cerebrovascular Accident Endocrine Medical History: Reports: Hx Diabetes Mellitus Type 2 Renal/ Medical History: Denies: Hx Peritoneal Dialysis GI Medical History: Reports: Hx Cirrhosis, Hx Gastroesophageal Reflux Disease Musculoskeletal Medical History: Denies Hx Arthritis, Reports Hx Musculoskeletal Deformity, Reports Hx Musculoskeletal Trauma Past Surgical History: Reports: Hx Cholecystectomy, Hx Orthopedic Surgery - left wrist; neck - Immunizations Hx Diphtheria, Pertussis, Tetanus Vaccination: No Review of Systems - Review of Systems Constitutional: No symptoms reported EENT: Mouth pain Cardiovascular: No symptoms reported Respiratory: No symptoms reported Gastrointestinal: No symptoms reported Genitourinary: No symptoms reported Female Genitourinary: No symptoms reported Musculoskeletal: Back pain, Other - Neck pain Skin: No symptoms reported Hematologic/Lymphatic: No symptoms reported Neurological/Psychological: No symptoms reported -: Yes All other systems reviewed and negative Physical Exam - Vital signs Vitals: Temp Pulse Resp BP Pulse Ox 98.7 F 105 H 18 130/86 H 97 01/20/20 17:49 01/20/20 17:49 01/20/20 17:49 01/20/20 17:49 01/20/20 17:49 - Notes Notes: CONSTITUTIONAL [Vital signs reviewed, Patient appears to be in no acute distress. Patient is wearing her postsurgical cervical collar.] HEAD [Atraumatic, Normocephalic.] EYES [Eyes are normal to inspection, No discharge from eyes, Extraocular muscles intact, Sclera are normal, Conjunctiva are normal.] ENT: Patient has facemask in place patient is speaking in full sentences without difficulty.] NECK Patient is wearing neck brace, neck range of motion is limited with cervical collar on. Neck inspection is limited with cervical collar on..] RESPIRATORY CHEST [Chest is nontender, Breath sounds normal, No respiratory distress.] CARDIOVASCULAR [RRR, No murmurs, Normal S1 S2, No rub, No gallop.] ABDOMEN [Abdomen is nontender, No pulsatile masses, No other masses, Bowel sounds normal, No distension, No peritoneal signs, No hernias.] BACK [There is no CVA Tenderness, There is no tenderness to palpation, Normal inspection.] UPPER EXTREMITY [Inspection normal, No cyanosis, No clubbing, No edema, 2+ radial pulses.] LOWER EXTREMITY [Inspection normal, No cyanosis, No clubbing, No edema, No calf tenderness, 2+ femoral pulses.] NEURO [No focal motor deficits, No focal sensory deficits, Speech normal.] SKIN [Skin is warm, Skin is dry, Skin is normal color.] PSYCHIATRIC [Normal affect. ] Course - Re-evaluation Re-evalutation: 01/20/20 22:36 Medical decision making/differential diagnosis: Patient has had multiple visits to this emergency department with complaints of pain that are unrelieved despite surgery and being on chronic high doses of Dilaudid ER 12 mg tablets diazepam 5 mg tablets and oxycodone 10 mg tablets. Patient's information on [place] controlled substance database was reviewed by this MD. Patient's SILVERIO X scores: Narcotic 661, sedative 721, stimulant 0. Patient has an overdose risk score of 400 with the range being between 0 and 999. Patient also has additional risk indicators including greater than 5 opioid or sedative providers in any year in the past 2 years as well as greater than 100 morphine milliequivalents total and 40 morphine milliequivalents per day average. While a postsurgical complication is not outside the realm of the differential diagnosis, drug-seeking or secondary gains behavior or some other kind is worrisome for this patient. Nevertheless the plan is to repeat the patient's CT of her C-spine to make sure there are no obvious postsurgical complications as result of taking off her c-collar. Given the patient has chronic pain medication issues and chronic pain issues and is currently being prescribed large amount of opioid medications, this and he feels that additional dosing of opioid medication is not in the patient's best interest. Furthermore, patient is well aware of this hospital's policy in terms of treatment of chronic pain. 01/20/20 23:59 Results of the ED MSE discussed with patient. Patient is asking for narcotic pain medication. This MD is informed the patient that I will not be prescribing her narcotic pain medication or giving her doses in the ED. This MD also informed the patient that her medical screening exam has been completed and no acute emergency medical condition is seen at this time. I will order dose of nonnarcotic pain medication to be given to the patient and she will be given discharge patient papers. Patient stated she want to see another doctor. This MD informed her that she will be discharged from the ED and if she decides to reregistered to be seen again that is her decision. - Vital Signs Vital signs: Temp Pulse Resp BP Pulse Ox 98.7 F 105 H 18 130/86 H 97 01/20/20 17:49 01/20/20 17:49 01/20/20 17:49 01/20/20 17:49 01/20/20 17:49 - Diagnostic Test Radiology reviewed: Reports reviewed Discharge - Discharge Clinical Impression: Chronic neck pain Condition: Stable Disposition: HOME, SELF-CARE Additional Instructions: Follow-up with your regular care providers and pain management doctors as scheduled Chronic Pain Control Stress, inactivity, and depression make pain more severe regardless of the cause of the pain. Stress and poor physical condition can cause pain such as headaches and backache. Relaxation: Rest in a quiet place with your eyes closed for 20 minutes twice daily. Concentrate on a pleasant image, or simply "feel" your breathing. Clear your mind. Stress management: Deal with your "stressors." Either take action, or eliminate the stressor from your life. Don't let things hang over you. Accept those things you can't change. Nutrition: Eat small, balanced meals -- don't skip, don't overeat. Meals should be high-carbohydrate, low-sugar, low-fat. Exercise: Exercise helps painful conditions and eases stress. Get 30 minutes of moderate exercise, five days a week. Do an activity that does not flare your pain. Precautions: Pain which continues to disrupt daily activities, or which changes in nature, requires a medical evaluation. Pain Clinic referral is available. We do not manage chronic pain in the Emergency Department. 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 We do not provide repeated medication management of chronic painful conditions. If you wish, we can provide the name of local pain management physicians. Referrals: LESLIE CHRISTIANSEN MD [Primary Care Provider] - Follow up as needed
[2020-01-20] MEDS ORDERED: ONDANSETRON 4 MG TAB.RAPDIS PO ONE (22:41)
--- NOTE | 2020-01-20 23:01 | RADIOLOGY REPORT (SQ) ---
EXAM DESCRIPTION: CT CERVICAL SPINE WITHOUT IV CONTRAST COMPLETED DATE/TME: 01/20/2020 22:26 CLINICAL HISTORY: 34 years, Female, worsening neck pain last neck ct 01/15/20 COMPARISON: 01/16/2020 CT TECHNIQUE: 267 Images stored on PACS. All CT scanners at this facility use dose modulation, iterative reconstruction, and/or weight based dosing when appropriate to reduce radiation dose to as low as reasonably achievable (ALARA). [facility]: Dose Right [facility]: CareDose [facility]: Dose Right [facility]: Teradose 4D [facility]: [employer] LIMITATIONS: None. FINDINGS: Evaluation of spinal canal contents limited due to CT technique. However, vertebral body height is preserved. Equivocal anterolisthesis of C4 on C5, likely developmental or degenerative in nature. Stable postsurgical change at C5-6 with bony spur formation. The prevertebral soft tissues are normal. Extraspinal anatomic structures are grossly unremarkable. IMPRESSION: No CT evidence for acute C-spine abnormality. Little change from the prior exam TECHNICAL DOCUMENTATION: Quality ID # [id number]: Final reports with documentation of one or more dose reduction techniques (e.g., Automated exposure control, adjustment of the mA and/or kV according to patient size, use of iterative reconstruction technique) copyright 2011 [employer]- All Rights Reserved
[2020-01-21] MEDS ORDERED: KETOROLAC TROMETHAMINE 60 MG/2 ML SDV IM ONE (00:03)
== END 2020-01-21 00:31 | disposition home or self-care (01) ==
LOC: ER 17:44
DX: M54.2 Cervicalgia (principal); G89.29 Other chronic pain; Z98.890 Other specified postprocedural states; M54.9 Dorsalgia, unspecified; J45.909 Unspecified asthma, uncomplicated; E11.9 Type 2 diabetes mellitus without complications; Z79.891 Long term (current) use of opiate analgesic; Z79.899 Other long term (current) drug therapy
CPT/HCPCS: 99285; 96372; 72125; J1885; S0119

== ENCOUNTER → 2020-01-20 | Emergency (ER) | payer BC | LOC: ER 02:15 → EDSTATUS 09:14 | DX: Z53.21 Procedure and treatment not carried out due to patient leaving prior to being seen by health care provider (principal) ==

== ENCOUNTER → 2020-03-19 | Outpatient (CLI) | payer BC ==
--- NOTE | 2020-03-20 14:30 | RADIOLOGY REPORT (SQ) ---
EXAM DESCRIPTION: MRI CERVICAL SPINE WITHOUT IMAGES COMPLETED DATE/TIME: 03/19/2020 6:33 pm REASON FOR STUDY: (M50.10)CERVICAL DISC DISORDER W RADICULOPATHY, UNSP CERVICAL REGION M50.10 CERVI ILA DISC DISORDER W RADICULOPATHY, UNSP CERVICAL COMPARISON: 12/12/2019. TECHNIQUE: Sagittal and Axial imaging includes T1, T2, STIR and gradient echo sequences. LIMITATIONS: None. FINDINGS: ALIGNMENT: Normal. VERTEBRAE: Intact. BONE MARROW: Normal. No marrow replacement or reactive changes. DISCS: Normal. No significant abnormal signal or loss of height. HARDWARE: Anterior hardware and disc spacer at C5-C6. CORD AND BASE OF BRAIN: Normal in size and signal intensity. SOFT TISSUES: No soft tissue masses. C1-C2: No significant spinal stenosis. C2-C3: No significant spinal stenosis or exit foraminal stenosis. C3-C4: No significant spinal stenosis or exit foraminal stenosis. C4-C5: No significant spinal stenosis or exit foraminal stenosis. C5-C6: Central disc protrusion with flattening of the cervical cord. Moderate spinal stenosis. Bila teral exit foraminal stenosis. C6-C7: Minimal central disc and osteophyte. No significant spinal stenosis or exit foraminal stenosi s. C7-T1: No significant spinal stenosis or exit foraminal stenosis. UPPER THORACIC: Incompletely imaged. No significant spinal stenosis or exit foraminal stenosis. OTHER: No other significant finding. IMPRESSION: INTERVAL ANTERIOR FUSION WITH HARDWARE AT C5-C 6. AGAIN SEEN IS CENTRAL DISC PROTRUSION AT THIS LEVEL WITH IMPINGEMENT OF THE CORD. OVERALL SIMILAR APPEARANCE TO THE PRIOR STUDY. NO OTHE R SIGNIFICANT FINDINGS. TECHNICAL DOCUMENTATION: JOB ID: [id number] [employer]- All Rights Reserved Reading location - IP/workstation name: [email or web address]
== END ==
LOC: RAD 17:38
PROVIDERS: ATTEND Neurological Surgery
DX: M50.10 Cervical disc disorder with radiculopathy, unspecified cervical region (principal); M50.03 Cervical disc disorder with myelopathy, cervicothoracic region
CPT/HCPCS: 72141

== ENCOUNTER 2020-04-11 20:31 | Emergency (ER) | payer BC ==
[2020-04-11] MEDS ORDERED: NORMAL SALINE 1000 ML 1,000 ML IV ONE (21:39)
[2020-04-11] MEDS ORDERED: MORPHINE SULFATE 10 MG/ML INJ IV ONE (21:40)
[2020-04-11] MEDS ORDERED: ONDANSETRON HCL INJ/PF 4 MG/2 ML SDV IV ONE (21:40)
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
[2020-04-11 22:42] LABS: ABSOLUTE LYMPHOCYTES (AUTO) 1.7 10^3/uL (0.5-4.7); ABSOLUTE MONOCYTES (AUTO) 0.4 10^3/uL (0.1-1.4); ABSOLUTE NEUT (AUTO) 4.6 10^3/uL (1.7-8.2); BASOPHILS % (AUTO) 0.4 % (0-2); EOSINOPHILS % (AUTO) 0.5 % (0-6); HEMATOCRIT 43.2 % (36.0-47.0); HEMOGLOBIN 14.9 g/dL (12.0-15.5); LYMPHOCYTES % (AUTO) 25.8 % (13-45); MEAN CORPUSCULAR HGB CONC 34.6 g/dL (32.0-36.0); MEAN CORPUSCULAR VOLUME 90 fl (80-97); MONOCYTES % (AUTO) 5.2 % (3-13); PLATELET COUNT 181 10^3/uL (150-450); RED BLOOD COUNT 4.82 10^6/uL (3.72-5.28); RED CELL DISTRIBUTION WIDTH 12.4 % (11.5-14.0); SEGMENTED NEUTROPHILS % (AUTO) 68.1 % (42-78); TOTAL CELLS COUNTED % (AUTO) 100 %; WHITE BLOOD COUNT 6.8 10^3/uL (4.0-10.5)
[2020-04-11 23:01] LABS: ALBUMIN 4.3 g/dL (3.5-5.0); ALKALINE PHOSPHATASE 48 U/L (38-126); ANION GAP 11 (5-19); ASPARTATE AMINO TRANSFERASE 18 U/L (14-36); BILIRUBIN,DIRECT 0.1 mg/dL (0.0-0.4); BILIRUBIN,TOTAL 0.8 mg/dL (0.2-1.3); BLOOD UREA NITROGEN 14 mg/dL (7-20); CALCIUM 9.5 mg/dL (8.4-10.2); CARBON DIOXIDE 20 mmol/L (22-30); CHLORIDE 104 mmol/L (98-107); GLUCOSE 87 mg/dL (75-110); POTASSIUM 3.7 mmol/L (3.6-5.0)
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
[2020-04-11] MEDS ORDERED: DEXAMETHASONE SOD PHOS INJ 10 MG/1 ML VIAL IV ONE (23:54)
[2020-04-11] MEDS ORDERED: METHOCARBAMOL INJ/PF 1000 MG/10 ML SDV IV ONE (23:54)
[2020-04-12 02:21] VITALS: BP 132/85
[2020-04-12] MEDS ORDERED: KETOROLAC TROMETHAMINE INJ/PF 30 MG/1 ML SDV IV ONE (02:58)
== END 2020-04-12 03:30 | disposition home or self-care (01) ==
LOC: ER 20:31
DX: M50.30 Other cervical disc degeneration, unspecified cervical region (principal); M54.12 Radiculopathy, cervical region; R11.2 Nausea with vomiting, unspecified; R61 Generalized hyperhidrosis; R00.0 Tachycardia, unspecified; Z79.899 Other long term (current) drug therapy; F17.200 Nicotine dependence, unspecified, uncomplicated; I25.2 Old myocardial infarction; J45.909 Unspecified asthma, uncomplicated; E11.9 Type 2 diabetes mellitus without complications
CPT/HCPCS: 99284; 96361; 96375 ×2; 96365; 36415; 83605; 85025; 80053; J2800; J1885; J2270; J2405; J7030; J1100

== ENCOUNTER 2020-04-18 02:03 | Emergency (ER) | payer OTHER, BC ==
[2020-04-18] MEDS ORDERED: KETOROLAC TROMETHAMINE 60 MG/2 ML SDV IM ONE (04:40)
--- NOTE | 2020-04-18 04:46 | ER Document Report ---
ED General - General Chief Complaint: Other Stated Complaint: BUMP ON NECK Time Seen by Provider: 04/18/20 04:19 Primary Care Provider: CHUY CALERO PA-C [Primary Care Provider] - Follow up as needed Notes: Patient presents to the ER for evaluation of neck pain radiating into the bilateral shoulders times approximately 2 weeks. The patient states she has chronic neck pain due to herniation that required surgery. She states her pain does not usually hurt to this degree. She does take Percocet daily for her pain. She does have a neurosurgeon. She states she was seen by the neurosurgeon within the last week. She states the neurosurgeon told her that she needed another surgery but she has yet to schedule a date. She denies weakness or numbness in the upper extremities. She denies fever. She denies re cent injury. Nursing notes reviewed and past medical, social, and family histories reviewed and validated. TRAVEL OUTSIDE OF THE [place] IN LAST 30 DAYS: No - Related Data Allergies/Adverse Reactions: No Known Allergies Allergy (Verified 04/18/20 02:45) Home Medications: OXYCODONE. BACKLOFEN. LIRICA Past Medical History - General Information source: Patient - Social History Smoking Status: Current Every Day Smoker Cigarette use (# per day): Yes - 1 pack Chew tobacco use (# tins/day): No Smoking Education Provided: Yes Frequency of alcohol use: None Drug Abuse: None Lives with: Family Family History: Reviewed & Not Pertinent Patient has suicidal ideation: No Patient has homicidal ideation: No - Past Medical History Cardiac Medical History: Reports: Hx Heart Attack - "Mild [place]" cause unknown Denies: Hx Coronary Artery Disease, Hx Hypertension Pulmonary Medical History: Reports: Hx Asthma - Sees Dr. Tabares , Hx Bronchitis, Hx Pneumonia EENT Medical History: Reports: None Neurological Medical History: Reports: Hx Migraine, Hx Seizures - "I have small seizures", no medications at this time . Denies: Hx Cerebrovascular Accident Endocrine Medical History: Reports: Hx Diabetes Mellitus Type 2 Renal/ Medical History: Denies: Hx Peritoneal Dialysis Malignancy Medical History: Reports: None GI Medical History: Reports: Hx Cirrhosis, Hx Gastroesophageal Reflux Disease Musculoskeletal Medical History: Denies Hx Arthritis, Reports Hx Musculoskeletal Deformity, Reports Hx Musculoskeletal Trauma Skin Medical History: Reports None Psychiatric Medical History: Reports: None Traumatic Medical History: Reports: None Infectious Medical History: Reports: None Past Surgical History: Reports: Hx Cholecystectomy, Hx Neurologic Surgery, Hx Orthopedic Surgery - left wrist; neck - Immunizations Immunizations up to date: Yes Hx Diphtheria, Pertussis, Tetanus Vaccination: No Review of Systems - Review of Systems Notes: Constitutional: Negative for fever. HENT: Negative for sore throat. Positive for neck pain. Eyes: Negative for visual changes. Cardiovascular: Negative for chest pain. Respiratory: Negative for shortness of breath. Gastrointestinal: Negative for abdominal pain, vomiting or diarrhea. Genitourinary: Negative for dysuria. Musculoskeletal: Negative for back pain. Skin: Negative for rash. Neurological: Negative for headaches, weakness or numbness. 10 point ROS negative except as marked above and in HPI. Physical Exam - Vital signs Vitals: Temp Pulse Resp BP Pulse Ox 97.5 F 66 16 112/62 100 04/18/20 02:29 04/18/20 02:29 04/18/20 02:29 04/18/20 02:29 04/18/20 02:29 - Notes Notes: CONSTITUTIONAL: Well appearing. No acute distress. SKIN: Warm, dry, and intact without rash EYES: Extraocular movements are grossly intact, clear conjunctiva HENT: Normocephalic, atraumatic, moist mucus membranes NECK: There is tenderness palpation over the C5-C6 area where a central disc protrusion was previously diagnosed. PULMONARY: Normal chest rise and fall. No respiratory distress or stridor CARDIOVASCULAR: Regular rate. Distal extremities are warm and well perfused. ABDOMINAL: Soft, nontender NEUROLOGIC: Normal speech, moves all extremities. Cranial nerves are within normal limits. 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 There is good strength and sensation in bilateral lower extr emities. MUSCULOSKELETAL: There is mild tenderness palpation over the superior aspect of the trapezius muscles bilaterally. PSYCHIATRIC: Normal mood and affect Course - Re-evaluation Re-evalutation: 04/18/20 04:50 I discussed with the patient the importance to follow-up with her neurosurgeon. She did have an MRI at this facility on 19 March which showed a stable disc protrusion at C5-C6. This was unchanged from prior study. She does have neurosurgery follow-up and is having no acute neurological symptoms. I have recommended that she follow-up with her neurosurgeon this week. She has received Toradol prescription for home to help with her pain. - Vital Signs Vital signs: Temp Pulse Resp BP Pulse Ox 97.5 F 66 16 112/62 100 04/18/20 02:29 04/18/20 02:29 04/18/20 02:29 04/18/20 02:29 04/18/20 02:29 Discharge - Discharge Clinical Impression: acute exacerbation of chronic neck pain Condition: Stable Disposition: HOME, SELF-CARE Instructions: Herniated Disc ([facility]) Additional Instructions: It is important that you follow-up with your neurosurgeon for a recheck within the next week. Prescriptions: Ketorolac Tromethamine [Toradol 10 mg Tablet] 10 mg PO Q8HP PRN #12 tablet PRN Reason: For Pain Referrals: CHUY CALERO PA-C [Primary Care Provider] - Follow up as needed
[2020-04-18 04:55] VITALS: BP 109/63
== END 2020-04-18 05:41 | disposition home or self-care (01) ==
LOC: ER 02:03
DX: G89.29 Other chronic pain (principal); M50.222 Other cervical disc displacement at C5-C6 level; F17.210 Nicotine dependence, cigarettes, uncomplicated; Z79.891 Long term (current) use of opiate analgesic; Z79.899 Other long term (current) drug therapy; Z98.890 Other specified postprocedural states
CPT/HCPCS: 99284; 96372; J1885

== ENCOUNTER 2020-04-20 19:04 | Emergency (ER) | payer BC, OTHER ==
[2020-04-20] MEDS ORDERED: RINGERS SOLUTION,LACTATED 1,000 ML IV ONE (19:34)
[2020-04-20] MEDS ORDERED: METOCLOPRAMIDE HCL INJ/PF 10 MG/2 ML SDV IV ONE (19:35)
--- NOTE | 2020-04-20 19:37 | ER Document Report ---
ED Medical Screen (RME) - General Chief Complaint: Neck Pain >24hrs old Stated Complaint: BACK/NECK PAIN Time Seen by Provider: 04/20/20 19:09 Primary Care Provider: CHUY CALERO PA-C [Primary Care Provider] - Follow up as needed Mode of Arrival: Wheelchair Information source: Patient Notes: HPI; 34-year-old female with history of chronic neck pain secondary to herniated disks and a previous cervical fusion seen here 2 days ago for same symptoms presents to the emergency room with persistent neck pain, muscle spasms, vomiting. Patient states she followed up with her neurologist yesterday in [place] and has an appointment on Thursday with a neurosurgeon. Patient states her symptoms are getting progressively worse she does not feel that she can wait till Thursday to see her neurosurgeon. States she is taking her oxycodone and Zofran with minimal relief. She denies any new trauma or injury. PE: Alert and oriented x3. Lungs: Clear to auscultation without rales, rhonchi, wheezes. Heart: Tachycardic without murmurs, rubs, gallops. I have greeted and performed a rapid initial assessment of this patient. A comprehensive ED assessment and evaluation of the patient, analysis of test results and completion of the medical decision making process will be conducted by additional ED providers. I have specifically instructed the patient or family members with the patient to immediately return to any nursing staff should anything change in the patient's condition or with their chief complaint. TRAVEL OUTSIDE OF THE [place] IN LAST 30 DAYS: No - Related Data Allergies/Adverse Reactions: No Known Allergies Allergy (Verified 04/20/20 19:23) Past Medical History - Past Medical History Cardiac Medical History: Reports: Hx Heart Attack - "Mild [place]" cause unknown Denies: Hx Coronary Artery Disease, Hx Hypertension Pulmonary Medical History: Reports: Hx Asthma - Sees Dr. Tabares , Hx Bronchitis, Hx Pneumonia Neurological Medical History: Reports: Hx Migraine, Hx Seizures - "I have small seizures", no medications at this time . Denies: Hx Cerebrovascular Accident Endocrine Medical History: Reports: Hx Diabetes Mellitus Type 2 Renal/ Medical History: Denies: Hx Peritoneal Dialysis GI Medical History: Reports: Hx Cirrhosis, Hx Gastroesophageal Reflux Disease Musculoskeltal Medical History: Denies Hx Arthritis, Reports Hx Musculoskeletal Deformity, Reports Hx Musculoskeletal Trauma Past Surgical History: Reports: Hx Cholecystectomy, Hx Neurologic Surgery, Hx Orthopedic Surgery - left wrist; neck - Immunizations Immunizations up to date: Yes Hx Diphtheria, Pertussis, Tetanus Vaccination: No Physical Exam - Vital signs Vitals: Temp Pulse Resp BP Pulse Ox 98.5 F 102 H 16 107/79 100 04/20/20 19:12 04/20/20 19:12 04/20/20 19:12 04/20/20 19:12 04/20/20 19:12 Course - Vital Signs Vital signs: Temp Pulse Resp BP Pulse Ox 98.5 F 102 H 16 107/79 100 04/20/20 19:23 04/20/20 19:12 04/20/20 19:12 04/20/20 19:12 04/20/20 19:12 Doctor's Discharge - Discharge Referrals: CHUY CALERO PA-C [Primary Care Provider] - Follow up as needed
[2020-04-20 21:57] LABS: ABSOLUTE MONOCYTES (AUTO) 0.4 10^3/uL (0.1-1.4); ABSOLUTE NEUT (AUTO) 4.7 10^3/uL (1.7-8.2); BASOPHILS % (AUTO) 0.3 % (0-2); EOSINOPHILS % (AUTO) 0.2 % (0-6); HEMATOCRIT 39.9 % (36.0-47.0); HEMOGLOBIN 13.9 g/dL (12.0-15.5); LYMPHOCYTES % (AUTO) 28.1 % (13-45); MEAN CORPUSCULAR HEMOGLOBIN 31.2 pg (27.0-33.4); MEAN CORPUSCULAR HGB CONC 34.7 g/dL (32.0-36.0); MEAN CORPUSCULAR VOLUME 90 fl (80-97); MONOCYTES % (AUTO) 5.7 % (3-13); PLATELET COUNT 164 10^3/uL (150-450); RED BLOOD COUNT 4.44 10^6/uL (3.72-5.28); RED CELL DISTRIBUTION WIDTH 12.8 % (11.5-14.0); SEGMENTED NEUTROPHILS % (AUTO) 65.7 % (42-78); TOTAL CELLS COUNTED % (AUTO) 100 %; WHITE BLOOD COUNT 7.2 10^3/uL (4.0-10.5)
[2020-04-20 22:03] LABS: ALBUMIN 4.2 g/dL (3.5-5.0); ALKALINE PHOSPHATASE 44 U/L (38-126); ANION GAP 8 (5-19); ASPARTATE AMINO TRANSFERASE 30 U/L (14-36); BILIRUBIN,DIRECT 0.2 mg/dL (0.0-0.4); BILIRUBIN,TOTAL 0.8 mg/dL (0.2-1.3); BLOOD UREA NITROGEN 15 mg/dL (7-20); CALCIUM 9.4 mg/dL (8.4-10.2); CARBON DIOXIDE 23 mmol/L (22-30); CHLORIDE 103 mmol/L (98-107); GLUCOSE 87 mg/dL (75-110); POTASSIUM 3.3 mmol/L (3.6-5.0)
--- NOTE | 2020-04-20 22:38 | ER Document Report ---
ED Neck/Back Problem - General Chief Complaint: Neck Pain >24hrs old Stated Complaint: BACK/NECK PAIN Time Seen by Provider: 04/20/20 19:09 Primary Care Provider: CHUY CALERO PA-C [Primary Care Provider] - Follow up as needed Mode of Arrival: Wheelchair TRAVEL OUTSIDE OF THE [place] IN LAST 30 DAYS: No - HPI Notes: 34-year-old female with past medical history for cervical disc disease, history of cervical decompression in December, chronic pain to the emergency department with complaints of progressively worsening neck pain since she had her decompre ssion in December. She states that she has prescribed from her primary care physician 10 mg Percocets, Lyrica 75 mg QID, and 10 mg baclofen. She states she is she has been trying to take them but every time she gets up she has nausea and vomiting. She denies any fevers or chills. She denies any recent falls. She feels spasm on both sides of her neck. She has numbness and tingling down both arms. She states that she is getting ready to change her neurosurgeon from a physician at [facility] to a physician at [facility]. She has an appointment with Dr. Jara on April 23 at 3:30 PM. She states tonight that her pain is severe enough for her to come to the emergency department. Of note, this patient is well-known to this department. She has been visiting ice frequently for her neck pain. She has had at least 15 visits to the emergency department since November. She also reports low back pain. She states that she feels weak in all extremities and this is not new for her. She did have an MRI on March 19 that showed a cervical disc herniation. Denies saddle paresthesia. She does admit to numbness and tingling in bilateral upper extremity which has been ongoing for her. - Related Data Allergies/Adverse Reactions: No Known Allergies Allergy (Verified 04/20/20 19:23) Past Medical History - General Information source: Patient - Social History Smoking Status: Current Every Day Smoker Frequency of alcohol use: None Drug Abuse: None Family History: Reviewed & Not Pertinent Patient has homicidal ideation: No - Past Medical History Cardiac Medical History: Reports: Hx Heart Attack - "Mild [place]" cause unknown Denies: Hx Coronary Artery Disease, Hx Hypertension Pulmonary Medical History: Reports: Hx Asthma - Sees Dr. Tabares , Hx Bronchitis, Hx Pneumonia Neurological Medical History: Reports: Hx Migraine, Hx Seizures - "I have small seizures", no medications at this time . Denies: Hx Cerebrovascular Accident Endocrine Medical History: Reports: Hx Diabetes Mellitus Type 2 Renal/ Medical History: Denies: Hx Peritoneal Dialysis GI Medical History: Reports: Hx Cirrhosis, Hx Gastroesophageal Reflux Disease Musculoskeletal Medical History: Denies Hx Arthritis, Reports Hx Musculoskeletal Deformity, Reports Hx Musculoskeletal Trauma Past Surgical History: Reports: Hx Cholecystectomy, Hx Neurologic Surgery, Hx Orthopedic Surgery - left wrist; neck - Immunizations Immunizations up to date: Yes Hx Diphtheria, Pertussis, Tetanus Vaccination: No Review of Systems - Review of Systems Constitutional: denies: Chills, Fever EENT: No symptoms reported Cardiovascular: denies: Chest pain, Palpitations, Heart racing, Orthopnea, Dyspnea, Syncope, Dizziness, Lightheaded, Edema Respiratory: denies: Cough, Short of breath Gastrointestinal: Nausea, Vomiting. denies: Abdominal pain, Diarrhea Genitourinary: denies: Frequency, Flank pain, Hematuria Musculoskeletal: No symptoms reported Skin: No symptoms reported Hematologic/Lymphatic: No symptoms reported Neurological/Psychological: No symptoms reported -: Yes All other systems reviewed and negative Physical Exam - Vital signs Vitals: Temp Pulse Resp BP Pulse Ox 98.5 F 102 H 16 107/79 100 04/20/20 19:12 04/20/20 19:12 04/20/20 19:12 04/20/20 19:12 04/20/20 19:12 Interpretation: Normal - General General appearance: Alert Notes: chronically ill appearing - HEENT Head: Normocephalic, Atraumatic Eyes: Normal Pupils: PERRL Neck: Normal, Supple Notes: There is mild midline tenderness to palpation to the cervical neck. There is tenderness to bilateral trapezius muscles with noted spasm. - Respiratory Respiratory status: No respiratory distress Chest status: Nontender Breath sounds: Normal. No: Rales, Rhonchi, Wheezing Chest palpation: Normal - Cardiovascular Rhythm: Regular Heart sounds: Normal auscultation Murmur: No - Abdominal Inspection: Normal Distension: No distension Bowel sounds: Normal Tenderness: Nontender. No: Tender, McBurney's point, Méndez's sign, Guarding, Rebound Organomegaly: No organomegaly - Back Back: Normal, Nontender - Extremities Notes: Patient reports bilateral upper extremity numbness and tingling. Testing of her strength in her bilateral upper extremity actually reveals 5 out of 5 strength against resistance in flexion and extension Handgrip is about 4 out of 5 however patient does not give a lot of effort. She is nontender to palpation to bilateral shoulders, elbows, wrists, hands. - Neurological Neuro grossly intact: Yes Cognition: Normal Orientation: AAOx4 [place] Coma Scale Eye Opening: Spontaneous Polina Coma Scale Verbal: Oriented [place] Coma Scale Motor: Obeys Commands [place] Coma Scale Total: 15 Speech: Normal Cranial nerves: Normal Cerebellar coordination: Normal Motor strength normal: LUE, RUE, LLE, RLE Sensory: Normal - Psychological Associated symptoms: Normal mood, Flat affect - Skin Skin Temperature: Warm Skin Moisture: Dry Skin Color: Normal Course - Re-evaluation Re-evalutation: 04/21/20 01:15 Rounded on patient. Toradol, baclofen, zofran have not helped her pain -- however she appears slightly more comfortable. Will give a dose of Morphine. I have already explained to patient that I cannot give her further narcotic pain medication for outpatient use. Her CT of her neck is stable today and no new changes. 04/21/20 03:49 I discussed the patient with Dr. Guevara and asked him to see the patient. As we were nearing her discharge, she complains of a new complaint that she cannot move her leg and cannot walk. Initially when she told me about this, she said that her foot felt like it was cramping and I double checked her electrolytes -- mild hypokalemia but magnesium is WNL. I went back to see her and she began to say that she couldn't move her leg and felt like she couldn't walk. 04/21/20 04:08 We were able to get the patient to ambulate out of her room. She uses a single prong cane and she utilized that as well. MARQUIS simpson states she was able to move her legs out of the bed and stand on her own. I performed bedside reflexes and patient has brisk patellar reflexes. I discussed all these things with patient and plan for discharge. She asked to see Dr. Guevara again. 04/21/20 04:26 Dr. Guevara went and spoke with the patient further. We will have her follow up outpatient with her neurosurgeon without fail on Thursday. Will send home with antiemetics, encouraged her to use her at home pain meds. Encouraged to return if worse. - Vital Signs Vital signs: Temp Pulse Resp BP Pulse Ox 97.8 F 97 16 135/86 H 100 04/21/20 00:55 04/21/20 00:55 04/21/20 00:55 04/21/20 00:55 04/21/20 00:55 - Laboratory Result Diagrams: 04/20/20 20:34 04/20/20 20:34 Laboratory results interpreted by me: 04/20/20 20:34 Sodium 134.1 L Potassium 3.3 L - Diagnostic Test Radiology reviewed: Image reviewed, Reports reviewed Discharge - Discharge Clinical Impression: Chronic neck pain, Cervical radiculopathy, Nausea Condition: Stable Disposition: HOME, SELF-CARE Instructions: Nausea or Vomiting, Nonspecific ([facility]) Additional Instructions: Please follow-up with your neurosurgeon, Dr. Jara, without fail on Thursday. This is a very important appointment for you. Please follow-up with your primary care physician as well on Thursday. Continue your pain management at home with Lyrica, oxycodone, baclofen. You have been prescribed Zofran. Prescriptions: Ondansetron [Zofran Odt 4 mg Tablet] 1 - 2 tab PO Q4H PRN #15 tab.rapdis PRN Reason: For Nausea/Vomiting Referrals: CHUY CALERO PA-C [Primary Care Provider] - Follow up as needed
[2020-04-20] MEDS ORDERED: BACLOFEN 10 MG TABLET PO ONE (23:33)
[2020-04-20] MEDS ORDERED: ONDANSETRON HCL INJ/PF 4 MG/2 ML SDV IV ONE (23:33)
[2020-04-20] MEDS ORDERED: KETOROLAC TROMETHAMINE INJ/PF 30 MG/1 ML SDV IV ONE (23:33)
[2020-04-20] MEDS ORDERED: MORPHINE SULFATE 10 MG/ML INJ IV ONE (23:46)
--- NOTE | 2020-04-21 00:53 | RADIOLOGY REPORT (SQ) ---
EXAM DESCRIPTION: CT CERVICAL SPINE WITHOUT CLINICAL HISTORY: 34 years Female, progressively worsening neck pain COMPARISON: None. TECHNIQUE: Axial images of the cervical spine were performed, without the use of intravenous contrast, with sagittal and coronal reformatted images This exam was performed according to our departmental dose-optimization program which includes use of Automated Exposure Control, adjustment of the mA and/or kV according to patient size and/or use of iterative reconstruction technique. FINDINGS: No fracture or dislocation. There are degenerative and postoperative changes at the C5-C6 level. There is severe spinal stenosis at this level. No evidence of prevertebral swelling. No evidence of disc herniation. IMPRESSION: Degenerative and postoperative changes at the C5-C6 level, with severe spinal stenosis.
[2020-04-21] MEDS ORDERED: PROMETHAZINE HCL INJ 25 MG/1 ML VIAL ONE (01:42)
[2020-04-21] MEDS: PROMETHAZINE HCL INJ 50 MG/1 ML VIAL IM ONE ×2 (01:45→01:48)
[2020-04-21] MEDS ORDERED: OXYCODONE-ACETAMINOPHEN 5-325 MG TABLET PO ONE (03:21)
[2020-04-21 04:30] VITALS: BP 139/90
== END 2020-04-21 05:17 | disposition home or self-care (01) ==
LOC: ER 19:04
DX: M47.22 Other spondylosis with radiculopathy, cervical region (principal); M48.02 Spinal stenosis, cervical region; E87.6 Hypokalemia; M54.5 Low back pain; M62.830 Muscle spasm of back; R53.1 Weakness; R11.2 Nausea with vomiting, unspecified; E11.9 Type 2 diabetes mellitus without complications; J45.909 Unspecified asthma, uncomplicated; F17.200 Nicotine dependence, unspecified, uncomplicated; Z79.891 Long term (current) use of opiate analgesic; Z79.899 Other long term (current) drug therapy; Z98.890 Other specified postprocedural states
CPT/HCPCS: 99285; 96372; 96361; 96374; 96375 ×2; 36415; 83735; 84703; 85025; 80053; 72125; J1885; J2765; J2270; J2550; J2405; J7120

== ENCOUNTER 2020-04-21 18:15 | Emergency (ER) | payer BC ==
[2020-04-21 18:25] VITALS: BP 145/91
--- NOTE | 2020-04-21 18:47 | ER Document Report ---
ED Medical Screen (RME) - General Stated Complaint: NECK/BACK PAIN Time Seen by Provider: 04/21/20 18:39 Primary Care Provider: CHUY CALERO PA-C [Primary Care Provider] - Follow up as needed Mode of Arrival: Wheelchair Information source: Patient Notes: HPI; 34-year-old female with multiple visits emergency room for ongoing neck pain recently seen here last night complains of persistent worsening neck pain. She states she feels like her throat is getting tight. Is able to tolerate p.o. fluids without difficulty. No longer vomiting. Does complain of nausea. Taking her pain medications as prescribed. Continues to complain of right leg numbness but states is able to ambulate with the use of a cane. She denies any new trauma or injury. PE: Alert and oriented x3. Lungs: Clear to auscultation without rales, rhonchi, wheezes. Heart: Regular rate rhythm without murmurs, rubs, gallops. Patient is talking in full sentences. She is handling her own secretions. I have greeted and performed a rapid initial assessment of this patient. A comprehensive ED assessment and evaluation of the patient, analysis of test results and completion of the medical decision making process will be conducted by additional ED providers. I have specifically instructed the patient or family members with the patient to immediately return to any nursing staff should anything change in the patient's condition or with their chief complaint. TRAVEL OUTSIDE OF THE [place] IN LAST 30 DAYS: No - Related Data Allergies/Adverse Reactions: No Known Allergies Allergy (Verified 04/21/20 18:35) Past Medical History - Past Medical History Cardiac Medical History: Reports: Hx Heart Attack - "Mild [place]" cause unknown Denies: Hx Coronary Artery Disease, Hx Hypertension Pulmonary Medical History: Reports: Hx Asthma - Sees Dr. Tabares , Hx Bronchitis, Hx Pneumonia Neurological Medical History: Reports: Hx Migraine, Hx Seizures - "I have small seizures", no medications at this time . Denies: Hx Cerebrovascular Accident Endocrine Medical History: Reports: Hx Diabetes Mellitus Type 2 Renal/ Medical History: Denies: Hx Peritoneal Dialysis GI Medical History: Reports: Hx Cirrhosis, Hx Gastroesophageal Reflux Disease Musculoskeltal Medical History: Denies Hx Arthritis, Reports Hx Musculoskeletal Deformity, Reports Hx Musculoskeletal Trauma Past Surgical History: Reports: Hx Cholecystectomy, Hx Neurologic Surgery, Hx Orthopedic Surgery - left wrist; neck - Immunizations Immunizations up to date: Yes Hx Diphtheria, Pertussis, Tetanus Vaccination: No Physical Exam - Vital signs Vitals: Temp Resp BP Pulse Ox 98.0 F 18 145/91 H 100 04/21/20 18:21 04/21/20 18:21 04/21/20 18:21 04/21/20 18:21 Course - Vital Signs Vital signs: Temp Pulse Resp BP Pulse Ox 98.0 F 18 145/91 H 100 04/21/20 18:21 04/21/20 18:21 04/21/20 18:21 04/21/20 18:21 Doctor's Discharge - Discharge Referrals: CHUY CALERO PA-C [Primary Care Provider] - Follow up as needed
--- NOTE | 2020-04-21 19:30 | RADIOLOGY REPORT (SQ) ---
"EXAM DESCRIPTION: SOFT TISSUE NECK IMAGES COMPLETED DATE/TIME: 04/21/2020 7:19 pm REASON FOR STUDY: Difficulty swallowing COMPARISON: None. NUMBER OF VIEWS: Two views. TECHNIQUE: AP and lateral radiographic image of the soft tissues of the neck. LIMITATIONS: None. FINDINGS: EPIGLOTTIS: Normal. Contour normal. Aryepiglottic folds normal. PREVERTEBRAL SOFT TISSUES: Normal. No soft tissue swelling. SUBGLOTTIC AREA: Normal. No narrowing. RETROPHARYNGEAL SPACE: Normal. No soft tissue masses. BONES: ACD C5-6. LUNG APICES: Normal. OTHER: No radiopaque foreign body. No other significant finding. IMPRESSION: NEGATIVE STUDY OF THE SOFT TISSUES OF THE NECK. TECHNICAL DOCUMENTATION: JOB ID: [id number] 2010 [employer] | [employer]- All Rights Reserved Reading location - IP/workstation name: [email or web address]"
[2020-04-21] MEDS ORDERED: HYDROMORPHONE HCL INJ/PF 2 MG/ML AMPULE IM ONE (22:54)
[2020-04-21] MEDS ORDERED: DIAZEPAM INJ 10 MG/2 ML DISP.SYRIN IM ONE (22:56)
--- NOTE | 2020-04-21 23:59 | ER Document Report ---
ED Neck/Back Problem - General Chief Complaint: Neck Problem Stated Complaint: NECK/BACK PAIN Time Seen by Provider: 04/21/20 18:39 Primary Care Provider: CHUY CALERO PA-C [Primary Care Provider] - Follow up as needed Mode of Arrival: Wheelchair Notes: This 34-year-old woman presents to the emergency department with a complaint of severe pain involving her neck, low back with associated increase with tingling and numbness in her lower extremities bilaterally and the left upper extremity. She has a past medical history of cervical disc disease and lumbar disc disease with radiculopathy. She is in pain management and is taking oxycodone, gabapentin, and Flexeril. States that she feels locked up and unable to move without severe pain. She was seen in the emergency department 1 day ago and at that time given medications for pain. She states that she has had no little improvement and has returned because she cannot move. Past medical history is also significant for cirrhosis of the liver, GERD, diabetes mellitus, migraine headache. TRAVEL OUTSIDE OF THE [place] IN LAST 30 DAYS: No - Related Data Allergies/Adverse Reactions: No Known Allergies Allergy (Verified 04/21/20 18:35) Past Medical History - General Information source: Patient - Social History Smoking Status: Current Every Day Smoker Family History: Reviewed & Not Pertinent - Past Medical History Cardiac Medical History: Reports: Hx Heart Attack - "Mild [place]" cause unknown Denies: Hx Coronary Artery Disease, Hx Hypertension Pulmonary Medical History: Reports: Hx Asthma - Sees Dr. Tabares , Hx Bronchitis, Hx Pneumonia Neurological Medical History: Reports: Hx Migraine, Hx Seizures - "I have small seizures", no medications at this time . Denies: Hx Cerebrovascular Accident Endocrine Medical History: Reports: Hx Diabetes Mellitus Type 2 Renal/ Medical History: Denies: Hx Peritoneal Dialysis GI Medical History: Reports: Hx Cirrhosis, Hx Gastroesophageal Reflux Disease Musculoskeletal Medical History: Denies Hx Arthritis, Reports Hx Musculoskeletal Deformity, Reports Hx Musculoskeletal Trauma Past Surgical History: Reports: Hx Cholecystectomy, Hx Neurologic Surgery, Hx Orthopedic Surgery - left wrist; neck - Immunizations Immunizations up to date: Yes Hx Diphtheria, Pertussis, Tetanus Vaccination: No Review of Systems - Review of Systems Notes: Constitutional: Negative for fever. HENT: Negative for sore throat. Eyes: Negative for visual changes. Cardiovascular: Negative for chest pain. Respiratory: Negative for shortness of breath. Gastrointestinal: Negative for abdominal pain, vomiting or diarrhea. Genitourinary: Negative for dysuria. Musculoskeletal: See HPI Skin: Negative for rash. Neurological: See HPI 10 point ROS negative except as marked above and in HPI. Physical Exam - Vital signs Vitals: Temp Resp BP Pulse Ox 98.0 F 18 145/91 H 100 04/21/20 18:21 04/21/20 18:21 04/21/20 18:21 04/21/20 18:21 - Notes Notes: PHYSICAL EXAMINATION: Physical Exam: General: Well-nourished well-developed 34-year-old female in moderate distress secondary to acute exacerbation of chronic pain HEENT: NC/AT, pupils equal round and reactive to light, MM moist,nares clear, oropharynx clear, airway patent Neck: supple, no adenopathy, no masses. Decreased range of motion with tenderness in the paracervical muscle group bilaterally Lungs: clear, no wheezing, no rales no rhonchi CVS: Regular rate and rhythm no murmur gallop or rub Abdomen: Soft, active, nontender, no masses, no hepatosplenomegaly Ext: No edema, clubbing or cyanosis. Back: Tenderness at the L1-L5 region to light touch. Hyperesthetic. Neuro: Alert and responsive, able to move all 4 extremities on command, + no focal sensory loss, cranial nerves intact, no focal findings Skin: Intact no open lesions, no rash Course - Re-evaluation Re-evalutation: 04/22/20 15:11 After some discussion with the patient I have agreed to give her a dose of hydromorphone and a small dose of diazepam for muscle relaxation. I have asked the patient to follow-up with her pain management clinic regarding adjustment of her doses of gabapentin and her pain medication as well as muscle relaxant. I explained to the patient that we are unable to manage her pain from the emergency department long-term. Patient is in agreement with this plan and after receiving the medications states that she felt some better. She was discharged from the emergency department to follow-up as noted. - Vital Signs Vital signs: Temp Pulse Resp BP Pulse Ox 98.0 F 18 145/91 H 100 04/21/20 18:21 04/21/20 18:21 04/21/20 18:21 04/21/20 18:21 Discharge - Discharge Clinical Impression: Chronic neck pain, Cervical radiculopathy Condition: Good Disposition: HOME, SELF-CARE Instructions: Radiculopathy ([facility]) Additional Instructions: You were seen in the emergency department if chronic neck pain and secondary nerve pain. Please continue your usual pain medications and muscle relaxants. Please follow-up with your pain management doctors and request a reassessment of your pain control. HOME CARE INSTRUCTIONS & INFORMATION: Thank you for choosing us for your medical needs. We hope you're satisfied with the care you received. After you leave, you must properly care for your problem and, at the same time, observe its progress. Any condition can change. Some illnesses can change rapidly over hours or days. If your condition worsens, return to the Emergency Department or see your physician promptly. ABOUT YOUR X-RAYS AND EKG'S: If you had an EKG or X-rays taken, they have been read by the Emergency Physician. The X-rays and EKG's will also be read by a Ra diologist or Superintendent Track within 24 hours. If discrepancies are noted, you will be notified by telephone. Please be certain the ED has a correct telephone number & address where you can be reached. Also, realize that some fractures or abnormalities do not show up on initial X-rays. If your symptoms continue, see your physician. ABOUT YOUR LABORATORY TEST: If you had laboratory tests, the results have been reviewed by the Emergency Physician. Some test results (for example cultures) may not be available for several days. You will be contacted if any test result shows you need additional treatment. Please be certain the ED has a correct telephone number and address where you can be reached. ABOUT YOUR MEDICATIONS: You will receive instructions on how to take your medicine on the prescription label you receive. Additional information may be provided by the Pharmacy. If you have questions afterwards, call the ED for clarification or further instructions. Some prescribed medications may cause drowsiness. Do not perform tasks such as driving a car or operating machinery without consulting your Pharmacist. If you feel you need a refill of pain medication, your condition will need re-evaluation. Please do not call for a refill of any medication. ABOUT YOUR SIGNATURE: Signature of this document acknowledges to followin. Understanding that you received emergency treatment and that you may be released before al medical problems are known or treated. Please be certain the ED has a correct phone number & address where you can be reached. 2. Acknowledgement that you will arrange for follow-up care as recommended. 3. Authorization for the Emergency Physician to provide information to your follow-up Physician in order to maximize your care. AT ANY TIME, IF YOUR SYMPTOMS CHANGE SIGNIFICANTLY OR WORSEN OR YOU DEVELOP NEW SYMPTOMS, RETURN TO THE EMERGENCY DEPARTMENT IMMEDIATELY FOR RE-EVALUATION. OUR GOAL IS TO PROVIDE EXCELLENT MEDICAL CARE! WE HOPE THAT WE HAVE MET YOUR EXPECTATIONS DURING YOUR EMERGENCY DEPARTMENT VISIT AND THAT YOU FEEL YOU HAVE RECEIVED EXCELLENT CARE! Referrals: CHUY CALERO PA-C [Primary Care Provider] - Follow up as needed
== END 2020-04-22 00:22 | disposition home or self-care (01) ==
LOC: ER 18:15
DX: M54.12 Radiculopathy, cervical region (principal); G89.29 Other chronic pain; M54.2 Cervicalgia; M54.5 Low back pain; F17.200 Nicotine dependence, unspecified, uncomplicated; E11.9 Type 2 diabetes mellitus without complications; Z90.49 Acquired absence of other specified parts of digestive tract; I25.2 Old myocardial infarction
CPT/HCPCS: 99284; 96372; 70360; J3360; J1170

== ENCOUNTER 2020-04-22 13:40 | Emergency (ER) | payer BC ==
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
[2020-04-22 15:15] LABS: APPEARANCE,URINE CLEAR; BILIRUBIN,URINE NEGATIVE (NEGATIVE); COLOR,URINE YELLOW; GLUCOSE, URINE NEGATIVE (NEGATIVE); KETONES,URINE TRACE mg/dL (NEGATIVE); LEUKOCYTE ESTERASE,URINE NEGATIVE (NEGATIVE); NITRITE,URINE NEGATIVE (NEGATIVE); PROTEIN,URINE NEGATIVE (NEGATIVE); URINE SPECIFIC GRAVITY 1.005; UROBILINOGEN,URINE NEGATIVE mg/dL (<2.0)
[2020-04-22] MEDS ORDERED: HYDROMORPHONE HCL INJ/PF 2 MG/ML AMPULE IM ONE (15:49)
[2020-04-22] MEDS ORDERED: DIAZEPAM INJ 10 MG/2 ML DISP.SYRIN IM ONE (15:50)
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
[2020-04-22 17:22] VITALS: BP 126/93
== END 2020-04-22 17:01 | disposition home or self-care (01) ==
LOC: ER 13:40
DX: G89.29 Other chronic pain (principal); M54.2 Cervicalgia; M54.12 Radiculopathy, cervical region; R11.0 Nausea; R29.810 Facial weakness; R53.1 Weakness; M79.604 Pain in right leg; R13.10 Dysphagia, unspecified; R11.2 Nausea with vomiting, unspecified; R20.0 Anesthesia of skin; R15.9 Full incontinence of feces; R32 Unspecified urinary incontinence; F17.200 Nicotine dependence, unspecified, uncomplicated; J45.909 Unspecified asthma, uncomplicated; E11.9 Type 2 diabetes mellitus without complications; Z79.891 Long term (current) use of opiate analgesic; Z79.899 Other long term (current) drug therapy; Z98.1 Arthrodesis status
CPT/HCPCS: 99284; 96372; 81025; 81001; J3360; J1170

== ENCOUNTER 2020-04-22 19:12 | Emergency (ER) | payer BC ==
[2020-04-22 19:23] VITALS: BP 143/84
--- NOTE | 2020-04-22 19:58 | ER Document Report ---
HPI - HPI Patient complains to provider of: Neck pain Time Seen by Provider: 04/22/20 19:44 Pain Level: 4 Context: 34-year-old female with neck pain who is being seen in our emergency room multiple times over the past several days with complaints of nausea, vomiting, difficulty swallowing, worsening neck pain. Patient has been seen and evaluated multiple times with lab work, CAT scans, and x-rays. All work-ups have not showed any concerning results for patient to be admitted or transferred. Patient was here earlier today was given Dilaudid and Valium which she received last night. States she is having worsening pain feels like her neck is extremely tight denies any nausea, vomiting, no loss of control of her bowels or bladder. No saddle anesthesia. States she feels tight across her shoulders into her back and abdomen. Patient does have an appointment tomorrow with her neurosurgeon. Patient does have her own pain medication as well as muscle relaxers. Patient was counseled that there is no additional testing that would be required here in the emergency room. Patient was told that she needs to continue with her home medications and follow-up outpatient with her neurosurgeon tomorrow as scheduled. Associated Symptoms: None Exacerbated by: Denies Relieved by: Denies Similar symptoms previously: Yes - Chronic neck pain Recently seen / treated by doctor: Yes - Multiple ER visits as well as visit with her primary care physician 3 days - ROS Systems Reviewed and Negative: Yes All other systems reviewed and negative - CONSTITUTIONAL Constitutional: DENIES: Fever, Chills - EENT EENT: DENIES: Sore Throat - NEURO Neurology: DENIES: Headache, Weakness - RESPIRATORY Respiratory: DENIES: Trouble Breathing - GASTROINTESTINAL Gastrointestinal: DENIES: Abdominal Pain, Nausea, Patient vomiting - URINARY Urinary: DENIES: Dysuria, Urgency, Frequency - REPRODUCTIVE Reproductive: DENIES: : - MUSCULOSKELETAL Musculoskeletal: REPORTS: Extremity pain, Back Pain, Neck Pain - DERM Skin Color: Normal, [place] Skin Problems: None Past Medical History - General Information source: Patient - Social History Smoking Status: Never Smoker Family History: Reviewed & Not Pertinent - Past Medical History Cardiac Medical History: Reports: Hx Heart Attack - "Mild [place]" cause unknown Denies: Hx Coronary Artery Disease, Hx Hypertension Pulmonary Medical History: Reports: Hx Asthma - Sees Dr. Tabares , Hx Bronchitis, Hx Pneumonia Neurological Medical History: Reports: Hx Migraine, Hx Seizures - "I have small seizures", no medications at this time . Denies: Hx Cerebrovascular Accident Endocrine Medical History: Reports: Hx Diabetes Mellitus Type 2 Renal/ Medical History: Denies: Hx Peritoneal Dialysis GI Medical History: Reports: Hx Cirrhosis, Hx Gastroesophageal Reflux Disease Musculoskeletal Medical History: Denies Hx Arthritis, Reports Hx Musculoskeletal Deformity, Reports Hx Musculoskeletal Trauma Past Surgical History: Reports: Hx Cholecystectomy, Hx Neurologic Surgery, Hx Orthopedic Surgery - left wrist; neck - Immunizations Immunizations up to date: Yes Hx Diphtheria, Pertussis, Tetanus Vaccination: No Vertical Provider Document - CONSTITUTIONAL Agree With Documented VS: Yes Exam Limitations: No Limitations General Appearance: No Apparent Distress - INFECTION CONTROL TRAVEL OUTSIDE OF THE [place] IN LAST 30 DAYS: No - HEENT HEENT: Atraumatic, Normocephalic - NECK Neck: Normal Inspection, Supple, Other - Pain over the right trapezius muscle. Nontender of the cervical spine. Nontender with range of motion. - RESPIRATORY Respiratory: Breath Sounds Normal, No Respiratory Distress - CARDIOVASCULAR Cardiovascular: Regular Rate, Regular Rhythm, No Murmur - NEURO Level of Consciousness: Awake, Alert, Appropriate Motor/Sensory: No Motor Deficit, No Sensory Deficit Course - Re-evaluation Re-evalutation: 04/22/20 19:55 Discussed with patient that she has had full evaluations on her previous visits. There is no new symptoms. No new injuries. Patient is here with her and explained to both patient and that there is no additional diagnostic testing that would be done in the emergency room. She is to continue with her current home medications. She is to follow-up with her neurosurgeon tomorrow. Patient is requesting additional scans. Patient was again counseled that there is no indication for any additional testing at this time. She has no new neurological deficits. She will follow-up with her neurosurgeon tomorrow. She will continue with her current home medications. She was given strict return to the emergency room guidelines. All questions were answered. Patient and lucero nd verbalized understanding. Patient was not happy with being discharged, she continued to feel that she needs more testing but she was agreeable to be discharged.. 04/22/20 20:13 - Vital Signs Vital signs: Temp Pulse Resp BP Pulse Ox 98.0 F 111 H 17 143/84 H 97 04/22/20 19:22 04/22/20 19:22 04/22/20 19:22 04/22/20 19:22 04/22/20 19:22 Discharge - Discharge Clinical Impression: Chronic neck pain Condition: Stable Disposition: HOME, SELF-CARE Instructions: Chronic Pain Control ([facility]) Additional Instructions: You need to continue with your current home medications. Follow-up tomorrow with your neurosurgeon as scheduled. Return to the emergency room for any new or worsening symptoms. Referrals: CHUY CALERO PA-C [Primary Care Provider] - Follow up as needed
== END 2020-04-22 20:01 | disposition home or self-care (01) ==
LOC: ER 19:12
DX: G89.29 Other chronic pain (principal); M54.2 Cervicalgia; M79.18 Myalgia, other site; J45.909 Unspecified asthma, uncomplicated; E11.9 Type 2 diabetes mellitus without complications; Z79.899 Other long term (current) drug therapy
CPT/HCPCS: 99282

== ENCOUNTER 2020-04-24 13:18 | Emergency (ER) | payer BC ==
[2020-04-24 13:25] VITALS: BP 129/94
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
== END 2020-04-24 14:15 | disposition home or self-care (01) ==
LOC: ER 13:18
DX: G89.29 Other chronic pain (principal); M54.2 Cervicalgia; F17.200 Nicotine dependence, unspecified, uncomplicated; Z76.5 Malingerer [conscious simulation]
CPT/HCPCS: 99282

== ENCOUNTER 2020-05-04 18:09 | Emergency (ER) | payer BC ==
--- NOTE | 2020-05-04 19:53 | ER Document Report ---
ED Medical Screen (RME) - General Chief Complaint: Chest Pain Stated Complaint: NECK PAIN Time Seen by Provider: 05/04/20 19:41 Primary Care Provider: CHUY CALERO PA-C [Primary Care Provider] - Follow up as needed Notes: Patient presents complaining of migraine headache, difficulty swallowing and anterior neck pain. Patient has a history of chronic neck pain for which she is on multiple medications. Patient also complains of chest pain for the past 1 to 2 days and shaking of her hands. Patient states that occasionally her hands will lock up. Patient states she has had the shaking for the past 2 days as w ell. Patient also reports urinary frequency. Patient with a history of chronic neck pain, diabetes, migraine and asthma. I have greeted and performed a rapid initial assessment of this patient. A comprehensive ED assessment and evaluation of the patient, analysis of test results and completion of the medical decision making process will be conducted by additional ED providers. TRAVEL OUTSIDE OF THE [place] IN LAST 30 DAYS: No - Related Data Allergies/Adverse Reactions: No Known Allergies Allergy (Verified 04/24/20 13:49) Past Medical History - Past Medical History Cardiac Medical History: Reports: Hx Heart Attack - "Mild [place]" cause unknown Denies: Hx Coronary Artery Disease, Hx Hypertension Pulmonary Medical History: Reports: Hx Asthma - Sees Dr. Tabares , Hx Bronchitis, Hx Pneumonia Neurological Medical History: Reports: Hx Migraine, Hx Seizures - "I have small seizures", no medications at this time . Denies: Hx Cerebrovascular Accident Endocrine Medical History: Reports: Hx Diabetes Mellitus Type 2 Renal/ Medical History: Denies: Hx Peritoneal Dialysis GI Medical History: Reports: Hx Cirrhosis, Hx Gastroesophageal Reflux Disease Musculoskeltal Medical History: Denies Hx Arthritis, Reports Hx Musculoskeletal Deformity, Reports Hx Musculoskeletal Trauma Past Surgical History: Reports: Hx Cholecystectomy, Hx Neurologic Surgery, Hx Orthopedic Surgery - left wrist; neck - Immunizations Immunizations up to date: Yes Hx Diphtheria, Pertussis, Tetanus Vaccination: No Physical Exam - Vital signs Vitals: Temp Pulse Resp BP Pulse Ox 98.2 F 100 16 142/87 H 95 05/04/20 18:44 05/04/20 18:44 05/04/20 18:44 05/04/20 18:44 05/04/20 18:44 - General General appearance: Alert In distress: None Notes: Patient able to manage oral secretions, no angioedema, heart rate and rhythm regular Course - Vital Signs Vital signs: Temp Pulse Resp BP Pulse Ox 98.2 F 100 16 142/87 H 95 05/04/20 18:44 05/04/20 18:44 05/04/20 18:44 05/04/20 18:44 05/04/20 18:44 Doctor's Discharge - Discharge Referrals: CHUY CALERO PA-C [Primary Care Provider] - Follow up as needed
--- NOTE | 2020-05-04 20:41 | RADIOLOGY REPORT (SQ) ---
EXAM DESCRIPTION: X-RAY CHEST- One View CLINICAL HISTORY: Chest pain COMPARISON: None available. TECHNIQUE: Single view of the chest. FINDINGS: There are no discrete air space infiltrates, pneumothoraces or pleural effusions. The pulmonary vascularity is normal. The cardiomediastinal silhouette is normal in size. No suspicious lytic or blastic osseous lesions are identified. ADF hardware of the lower cervical spine is partially included in the [id number]. Surgical clips in the right upper abdominal quadrant are most consistent with prior cholecystectomy. IMPRESSION: There are no acute lung parenchymal findings.
[2020-05-04 20:55] LABS: ABSOLUTE EOSINOPHILS # (AUTO) 0.1 10^3/uL (0.0-0.6); ABSOLUTE LYMPHOCYTES (AUTO) 2.3 10^3/uL (0.5-4.7); ABSOLUTE MONOCYTES (AUTO) 0.5 10^3/uL (0.1-1.4); ABSOLUTE NEUT (AUTO) 4.6 10^3/uL (1.7-8.2); BASOPHILS % (AUTO) 0.5 % (0-2); EOSINOPHILS % (AUTO) 0.9 % (0-6); HEMATOCRIT 40.9 % (36.0-47.0); HEMOGLOBIN 14.1 g/dL (12.0-15.5); LYMPHOCYTES % (AUTO) 30.2 % (13-45); MEAN CORPUSCULAR HGB CONC 34.6 g/dL (32.0-36.0); MEAN CORPUSCULAR VOLUME 90 fl (80-97); MONOCYTES % (AUTO) 6.7 % (3-13); PLATELET COUNT 227 10^3/uL (150-450); RED BLOOD COUNT 4.57 10^6/uL (3.72-5.28); RED CELL DISTRIBUTION WIDTH 12.8 % (11.5-14.0); SEGMENTED NEUTROPHILS % (AUTO) 61.7 % (42-78); TOTAL CELLS COUNTED % (AUTO) 100 %; WHITE BLOOD COUNT 7.5 10^3/uL (4.0-10.5)
[2020-05-04 21:13] LABS: ALKALINE PHOSPHATASE 48 U/L (38-126); ANION GAP 8 (5-19); ASPARTATE AMINO TRANSFERASE 19 U/L (14-36); BILIRUBIN,DIRECT 0.2 mg/dL (0.0-0.4); BILIRUBIN,TOTAL 0.7 mg/dL (0.2-1.3); BLOOD UREA NITROGEN 10 mg/dL (7-20); CALCIUM 9.7 mg/dL (8.4-10.2); CARBON DIOXIDE 24 mmol/L (22-30); CHLORIDE 104 mmol/L (98-107); GLUCOSE 96 mg/dL (75-110); POTASSIUM 3.8 mmol/L (3.6-5.0); TOTAL PROTEIN 6.9 g/dL (6.3-8.2)
[2020-05-05] MEDS ORDERED: PREDNISONE 20 MG TABLET PO ONE (04:09)
[2020-05-05] MEDS ORDERED: KETOROLAC TROMETHAMINE 60 MG/2 ML SDV IM ONE (04:09)
--- NOTE | 2020-05-05 05:17 | ER Document Report ---
ED General - General Chief Complaint: Stiff Neck Stated Complaint: NECK PAIN Time Seen by Provider: 05/04/20 19:41 Primary Care Provider: CHUY CALERO PA-C [Primary Care Provider] - Follow up as needed TRAVEL OUTSIDE OF THE [place] IN LAST 30 DAYS: No - HPI Notes: Chief Complaint: Chronic neck pain Historian: History obtained from patient HPI: This is a 34-year-old female presents to the ED with chronic neck pain. She is well-known to the ER with multiple visits related to her neck pain. She c/o worsening of her chronic neck pain. no new injury or trauma. no new neuro d eficits. Patient complains of neck pain radiating down to her armpits. None of her symptoms are new or acute. She takes regular prescription opiate medicines she is prescribed by her doctors. Denies incontinence, saddle anesthesia, lower extremity weakness, fever, chills. ROS: Constitutional: no fevers. HEENT: no RAMOS, sore throat, or vision changes. CV: no chest pain or palpitations. Resp: no cough or SOB. GI: no abdominal pain, or n/v/d. : no dysuria, hematuria, or incont. MSK: chronic neck pain Skin: no rashes or itching. Neuro: no seizures, weakness, numbness, or confusion. Hematological: no ecchymosis or easy bleeding. Endocrine: no polyuria/polydipsia, no heat/cold intolerance. Psych: no SI/HI, AH/VH or memory loss. PMHx: Reviewed and agree as charted by RN. PSHx: Reviewed and agree as charted by RN. SOCHx: Reviewed and agree as charted by RN. FHX: No significant familial comorbid conditions directly related to patient complaint Current Medications: Reviewed and agree with the patient medications as charted by the RN. Allergies: Reviewed and agree with the listed allergies as charted by the RN Physical Exam: Vitals: Reviewed in chart as documented by RN. General: Alert and in NAD. Head: Normocephalic; atraumatic Eyes: PERRLA, Conjunctivae clear sclerae non-icteric bilat ENT: no soft palate swelling or uvular deviation Neck: trachea midline, no unilateral swelling/tenderness/lymphadenopathy CV: RRR, no M/R/G; symmetric distal pulses Resp: respirations even and unlabored, CTA bilat. GI: abd soft and nondistended. NTTP. normal BS. no masses/HSM. no CVAT bilat MSK: limited neck movement due to pain . diffuse paraspinous tenderness. no deformity or swelling mildline. sensation intact to BUE. radial pulse 2+ bilat. Skin: warm, moist, good turgor. no rash/lesions Neuro: Alert and oriented X 4. following CN 2-12 intact. no unilateral weakness/numbness Psych: No SI/HI or AH/VH. ED Results: Medical Decision-Making: pt has chronic pain. no new neuro deficits or signs of trauma or infection. we do not treat chronic pain in the ER w/ opiates. she is prescribed high doses of opaites at home. her labs were reviewed and reassuring. given decadron and toradol in the ED. d/c home w/ pcp f/u. return factors discussed. - Related Data Allergies/Adverse Reactions: No Known Allergies Allergy (Verified 04/24/20 13:49) Past Medical History - Social History Smoking Status: Current Every Day Smoker Frequency of alcohol use: None Family History: Reviewed & Not Pertinent - Past Medical History Cardiac Medical History: Reports: Hx Heart Attack - "Mild [place]" cause unknown Denies: Hx Coronary Artery Disease, Hx Hypertension Pulmonary Medical History: Reports: Hx Asthma - Sees Dr. Tabares , Hx Bronchitis, Hx Pneumonia Neurological Medical History: Reports: Hx Migraine, Hx Seizures - "I have small seizures", no medications at this time . Denies: Hx Cerebrovascular Accident Endocrine Medical History: Reports: Hx Diabetes Mellitus Type 2 Renal/ Medical History: Denies: Hx Peritoneal Dialysis GI Medical History: Reports: Hx Cirrhosis, Hx Gastroesophageal Reflux Disease Musculoskeletal Medical History: Denies Hx Arthritis, Reports Hx Musculoskeletal Deformity, Reports Hx Musculoskeletal Trauma Past Surgical History: Reports: Hx Cholecystectomy, Hx Neurologic Surgery, Hx Orthopedic Surgery - left wrist; neck - Immunizations Immunizations up to date: Yes Hx Diphtheria, Pertussis, Tetanus Vaccination: No Physical Exam - Vital signs Vitals: Temp Pulse Resp BP Pulse Ox 98.2 F 100 16 142/87 H 95 05/04/20 18:44 05/04/20 18:44 05/04/20 18:44 05/04/20 18:44 05/04/20 18:44 Course - Vital Signs Vital signs: Temp Pulse Resp BP Pulse Ox 97.8 F 66 14 120/75 97 05/05/20 04:41 05/05/20 04:41 05/05/20 04:41 05/05/20 04:41 05/05/20 04:41 - Laboratory Results Result Diagrams: 05/04/20 20:37 05/04/20 20:37 Laboratory Results Interpreted: 05/04/20 20:37 Sodium 135.8 L Critical Laboratory Results Reviewed: No Critical Results - Radiology Results Critical Radiology Results Reviewed: No Critical Results - EKG Interpretation by Me EKG shows normal: Sinus rhythm Rate: Normal Rhythm: NSR [place]/QRS: No: Right axis deviation, Left axis deviation, RBBB, LBBB, IVCD, LAHB/LAFB, LPHB/LPFB, Bifasicular block P Waves: No: ELVIS, LAE, Absent, AV Dissociation, Other Heart block present: No: 1st Degree, Mobitz 1, Mobitz 2, CHB (3rd degree block) When compared to previous EKG there are: No significant change - reviewed by ED physician. Discharge - Discharge Clinical Impression: Chronic neck pain Condition: Stable Disposition: HOME, SELF-CARE Referrals: CHUY CALERO PA-C [Primary Care Provider] - Follow up as needed
[2020-05-05 05:24] VITALS: BP 133/87
[2020-05-05 05:31] LABS: APPEARANCE,URINE SLIGHTLY-CLOUDY; BILIRUBIN,URINE NEGATIVE (NEGATIVE); COLOR,URINE YELLOW; GLUCOSE, URINE NEGATIVE (NEGATIVE); KETONES,URINE 20 mg/dL (NEGATIVE); LEUKOCYTE ESTERASE,URINE NEGATIVE (NEGATIVE); NITRITE,URINE NEGATIVE (NEGATIVE); PROTEIN,URINE NEGATIVE (NEGATIVE); URINE SPECIFIC GRAVITY 1.024; UROBILINOGEN,URINE NEGATIVE mg/dL (<2.0)
--- NOTE | 2020-05-05 17:25 | EKG REPORT ---
SEVERITY:- NORMAL ECG - SINUS RHYTHM : Confirmed by: Michelle Oconnell MD 05-May-2020 17:24:47
== END 2020-05-05 05:31 | disposition home or self-care (01) ==
LOC: ER 18:09
DX: G89.29 Other chronic pain (principal); M54.2 Cervicalgia; M43.6 Torticollis; F17.200 Nicotine dependence, unspecified, uncomplicated; I25.2 Old myocardial infarction
CPT/HCPCS: 93005; 99285; 96372; 36415; 83735; 84703; 85025; 80053; 81001; 84484; 71045; 93010; J1885; J7512